=== PATIENT | female | born 1940 | race Caucasian/White ===

== ENCOUNTER 2016-06-20 10:01 | Emergency (ER) | payer MEDICARE, BC ==
[2016-06-20 10:09] VITALS: BP 124/65
[2016-06-20] MEDS ORDERED: DOXYcycline CAP(*) 100 MG PO ONE (10:36)
--- NOTE | 2016-06-20 10:40 | ED ---
Skin Complaint - HPI Summary HPI Summary: 76 F presents with left sided tick on abdomen. Was [place] so believes tick latched on then. did not take a shower so did not notice till today. attempted to remove tick and was unable to get head. Area around tick is red. Patient denied any rash or fever. - History of Current Complaint Chief Complaint: EDRashSkinAbscess Time Seen by Provider: 06/20/16 10:13 Stated Complaint: TICK Hx Last Menstrual Period: 48 yrs Pain Intensity: 2 - Allergy/Home Medications Allergies/Adverse Reactions: Allergies Allergy/AdvReac Type Severity Reaction Status Date / Time Sulfa Drugs Allergy Intermediate See Comment Verified 06/20/16 10:03 Salicylates AdvReac Intermediate See Comment Verified 06/20/16 10:03 mercury Allergy Severe Swelling Uncoded 06/20/16 10:03 Of Face,Lips,& Throat ENVIRONMENTAL/SEASONAL Allergy CONGESTION, Uncoded 06/20/16 10:03 ASTHMA PMH/Surg Hx/FS Hx/Imm Hx Endocrine/Hematology History: Reports: 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, NO PROBLEMS SINCE ADULTHOOD Denies: Hx Diabetes, Hx Systemic Lupus Erythematosus Cardiovascular History: Reports: Other Cardiovascular Problems/Disorders Denies: Hx Congestive Heart Failure, Hx Hypertension, Hx Pacemaker/ICD Respiratory History: Reports: Hx Asthma - INHALER, Hx Pneumonia GI History: Reports: Other GI Disorders - gastrectomy 2005 FOR ADHESIONS History: Reports: Hx Kidney Infection, Hx Kidney Stones, Other Problems/ Disorders - RIGHT HYDRONEPHROSIS Denies: Hx Renal Disease Musculoskeletal History: Reports: Hx Arthritis Denies: Hx Rheumatoid Arthritis Sensory History: Reports: Hx Cataracts - BEGINNING, Hx Contacts or Glasses, Hx Hearing Aid - BILATERAL, DOES NOT ALWAYS WEAR Opthamlomology History: Reports: Hx Cataracts - BEGINNING, Hx Contacts or Glasses Psychiatric History: Denies: Hx Panic Disorder - Cancer History Hx Chemotherapy: No - Surgical History Surgery Procedure, Year, and Place: Stent Rt kidney July 2013 removed, Lt Hip replacement 08/2012, 3 C-sections, Complete Hysterectomy, Adhesions-Colon, Menetrier's Disease-Partial Gastric surgery 1984, right Breast Biopsy-Benign Hx Anesthesia Reactions: Yes - CONSTANT CRYING Infectious Disease History: No Infectious Disease History: Denies: Traveled Outside the [place] in Last 30 Days - Family History Known Family History: Positive: Cardiac Disease - Social History Alcohol Use: None Substance Use Type: Reports: None Smoking Status (MU): Former Smoker Length of Time of Smoking/Using Tobacco: OFF AND ON FOR ABOUT 16 YEAR Have You Smoked in the Last Year: No Review of Systems Negative: Fever Negative: Chest Pain Negative: Shortness Of Breath Positive: Other - tick head present on left side abdominal wall All Other Systems Reviewed And Are Negative: Yes Physical Exam Triage Information Reviewed: Yes Vital Signs On Initial Exam: Initial Vitals Temp Pulse Resp BP Pulse Ox 98.7 F 70 16 124/65 97 06/20/16 10:03 06/20/16 10:03 06/20/16 10:03 06/20/16 10:03 06/20/16 10:03 Vital Signs Reviewed: Yes Appearance: Positive: Well-Appearing Skin: Positive: Other - tick head noted on left side of abdomen with surrounding erythema present Head/Face: Positive: Normal Head/Face Inspection Eyes: Positive: Normal, Conjunctiva Clear Respiratory/Lung Sounds: Positive: Clear to Auscultation, Breath Sounds Present Cardiovascular: Positive: Normal, RRR Abdomen Description: Positive: Nontender, Soft Bowel Sounds: Positive: Present Diagnostics - Vital Signs Vital Signs Temp Pulse Resp BP Pulse Ox 06/20/16 10:03 98.7 F 70 16 124/65 97 - Laboratory Lab Statement: Any lab studies that have been ordered have been reviewed, and results considered in the medical decision making process. Course/Dx - Course Course Of Treatment: 76 F presents with tick to left side abdomen, attempted to remove and was unable to get head, states area stated causing pain today so notice but tick was mostly likely there for about 24 hours after they went hiking yesterday. attempted to removed head but was unable to get it removed, disinfected area, will ppx with doxcycline due to surround erythema around area, patient understands and agrees with plan - Differential Diagnoses - Skin Complaint Differential Diagnoses: Local Allergic Reaction, Tick Born Illness - Diagnoses Provider Diagnoses: Tick bite of abdominal wall Discharge - Discharge Plan Condition: Good Disposition: HOME Patient Education Materials: Tick Bite (ED) Referrals: Demario Duff MD [Primary Care Provider] - Additional Instructions: Follow up with primary within 3 days Use warm compresses on area Can use antihistamine for any itching Can use Tylenol for pain every 6 hours as needed Return to ED if develop fever or any new or worsening symptoms
== END 2016-06-20 11:02 | disposition home or self-care (01) ==
LOC: ED 10:01
DX: S30.861A Insect bite (nonvenomous) of abdominal wall, initial encounter (principal); W57.XXXA Bitten or stung by nonvenomous insect and other nonvenomous arthropods, initial encounter; Y93.9 Activity, unspecified; Y92.9 Unspecified place or not applicable; Z87.891 Personal history of nicotine dependence
CPT/HCPCS: 99282; A9270-GY

== ENCOUNTER 2017-05-14 15:13 | Observation (INO) | payer MEDICARE, BC ==
--- OUTSIDE RECORDS SUMMARY | 2017-05-14 15:33 | XMS REPORT ---
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 Active Onset: 03/03/2011 Bacterial pneumonia Demario Duff M.D. Active Onset: 06/09/2011 Acute upper respiratory infection Demario Duff M.D. Active Onset: 05/10/2012 Arthralgia of the pelvic region and Demario Duff M.D. Active thigh Onset: 05/10/2012 Hyperlipidemia Demario Duff M.D. Active Onset: 05/10/2012 Eruption Demario Duff M.D. Active Onset: 03/02/2014 Pneumonia Demario Duff M.D. Active Onset: 02/25/2016 Chronic obstructive lung disease Demario Duff M.D. Active Onset: 03/05/2015 Pure hypercholesterolemia Demario Duff M.D. Active Onset: 07/17/2014 Disorder of shoulder Demario Duff M.D. Active Onset: 05/15/2014 Transient cerebral ischemia Demario Duff M.D. Active Social History Type Date Description Comments Cigarette Use Nonsmoker Allergies, Adverse Reactions, Alerts Date Description Reaction Status Severity Comments 10/02/2003 Sulfa Drugs active 11/13/2008 Mercury active 06/09/2011 Salicylates pain active Medications Medication Date Status Form Strength Qnty SIG Indications Ordering Provider Clobetasol 07/28/ Active Cream 0.05% 30gm use twice a Demario Fonseca Propionate 2016 day Josie Duff Simvastatin 07/19/ Active Tablets 40mg 90tab 1 by mouth Demario Fonseca 2014 s every day Josie Duff Advair Diskus 10/07/ Active Aerosol 100-50mcg/ 3unit use one Demario Fonseca 2010 Dose s inhalation Elisaimapaulette, two times a M.D. day Montelukast 05/03/ Active Tablets 10mg 90tab take 1 Demario Fonseca Sodium 2007 s tablet Elisaimapaulette, daily M.DBen Theophylline ER 10/01/ Active Tablets 300mg 180ta 1 by mouth Demario Fonseca 2004 ER 12HR bs twice a day Josie Duff Plavix / Active Tablets 75mg 90tab 1 by mouth Daniela 0000 s every day JovannaLIMA bhatia Lotrisone 09/09/ Hx Cream 1-0.05% 30gm use on skin Demario Fonseca 2016 - twice a day Elisaimapaulette, 05/14/ On Feet M.D. 2018 Ciprofloxacin 05/27/ Hx Tablets 500mg 20tab 1 by mouth N39.0 Lauryn HCL 2016 - s twice a day Jason, 06/23/ x 10d [employer] 2017 J44.9 Levaquin 04/08/2016 - Hx Tablets 500mg 10tabs 1 by mouth Demario Fonseca 05/27/2016 every day x 10 Breiman, days M.D. Levaquin 12/20/2015 - Hx Tablets 500mg 10tabs 1 by mouth Demario Fonseca 01/08/2016 every day x 10 Breiman, days M.D. Zostavax 07/17/2014 - Hx Solution [id number] 1dose inject Demario Fonseca 10/23/2014 Rec t/0.65M Sandeep Duff M.D. Nebulizer Set 04/30/2014 - Hx 1units dispense one Daniela [employer] 10/23/2014 machine for LIMA Nugent nebulizer for episodic use x 2 weeks followed by possible intermittent lifelong use dx 493.90 Ipratropium 04/30/2014 - Hx Solution 0.5-2.5 1box use three Daniela [place]/Albuter 07/17/2014 (3)mg/3 times daily LIMA Nugent ol Sulfate ML and 1 additional time as needed Levaquin 04/30/2014 - Hx Tablets 500mg 10tabs 1 by mouth Daniela 05/15/2014 every day LIMA Nugent Tessalon 04/30/2014 - Hx Capsules 200mg 90caps take 1 Prior Daniela 05/15/2014 To Sleep LIMA Nugent Levaquin 03/02/2014 - Hx Tablets 500mg 10tabs 1 by mouth Demario Fonseca 04/30/2014 every day Josie Duff Prednisone 03/02/2014 - Hx Tablets 20mg 18tabs 3 x 3 days 2 x Demario Fonseca 04/30/2014 3 days 1 x 3 Elisaimanjessica M.D. Prednisone 11/07/2013 - Hx Tablets 5mg take 2 po bid Demario Fonseca 11/07/2013 x 3 days, then Breimapaulette, take 1 po tid M.D. x 3 days, then take 1 po bid x 3 days, then 1 po qd x 3 days, then stop Cipro 08/08/2013 - Hx Tablets 250mg 6tabs 1 po bid for 3 Yessi 08/11/2013 days Med Shukla Tessalon 05/16/2013 - Hx Capsules 200mg 90caps take 1 Prior Demario Fonseca 08/07/2013 To Sleep Josie Duff Augmentin 06/14/2011 - Hx Tablets 500-125 20tabs 1 po bid Demario Fonseca 05/10/2012 mg Josie Duff Levaquin 03/03/2011 - Hx Tablets 500mg 10tabs 1 po qd 46 Demario Fonseca 06/09/2011 6. Omega 0 M.DBen Levaquin 10/02/2009 - Hx Tablets 500mg 10tabs 1 po qd 46 Fuentes Reynolds 10/12/2009 6. Josie Egan 0 Zithromax Z-Siva 05/14/2009 - Hx Tablets 250mg 1Pack as directed Demario Fonseca 10/02/2009 Josie Duff Zithromax 02/21/2009 - Hx Tablets 250mg 6Tabs 2 po qd today Mark Napoles 05/14/2009 , then 1 po qd Josie Pinzon times 4 Relenza 07/24/2008 - Hx Aerosol 5mg/Bli use bid x 5 Demario Fonseca Diskhaler 11/13/2008 ster days Josie Duff Naprosyn 06/12/2008 - Hx Tablets 500mg 20tabs 1 bid with Demario Fonseca 10/02/2009 food Josie Duff Z-Siva 08/18/2005 - Hx Tablets 250mg as Dfirected Demario Fonseca 10/08/2005 Josie Duff Climara 06/22/2005 - Hx Patches 0.025mg Family Estradiol 05/15/2013 /[facility] Keflex 06/22/2005 - Hx Tablets 500mg 30tabs 1 po tid Demario Fonseca 10/08/2005 Josie Duff Diflucan 06/22/2005 - Hx Tablets 150mg 1tabs 1 po times 1 Mark Napoles 05/14/2009 day may repeat Josie Pinzon in 7 days Note 05/19/2005 - Hx please add A Demario Fonseca 06/22/2005 lipid profile Omega, to pt's last M.Sesar labs that she had done for her pre-op pt's dx:272.4/ PT was fasting for labs Advair Discus 04/01/2004 - Hx 100/50 3units one inhalation Demario Fonseca 03/03/2011 twice daily Josie Duff Z-Pack 01/14/2004 - Hx 1units as Directed Demario Fonseca 04/01/2004 Josie Duff Albuterol 01/11/2004 - Hx 3units 2 puffs qid Demario Fonseca Inhaler 10/02/2009 prn Josie Duff Theophylline 10/02/2003 - Hx 300gm 270units 1 po tid Demario Fonseca 06/16/2012 Josie Duff Singulair 10/02/2003 - Hx 90units 1 p qd Demario Fonseca 05/03/2006 LUIS Duff M.D. 39 Advair 10/02/2003 - Hx 3units bid Demario Fonseca 04/01/2004 Josie Duff Estraderm Patch 10/02/2003 - Hx Demario Fonseca 06/22/2005 Josie Duff Prednisone - Hx Tablets 5mg 30tabs take 2 po bid Unknown 11/07/2013 x 3 days, then take 1 po tid x 3 days, then take 1 po bid x 3 days, then 1 po qd x 3 days, then stop Simvastatin - Hx Tablets 20mg 90tabs 1 by mouth Demario Fonseca 07/19/2014 every day Josie Duff Medications Administered in Office Medication Date Status Form Strength Qnty SIG Indications Ordering Provider Injection Administered Injection Demario Fonseca Subcutaneous Or 2009 Fadi Duff M.D. Immunizations CPT Code Status Date Vaccine Lot # [id number] Given 02/19/2017 High-Dose, Influenza Virus Vacccine-fluzone 65 [id number] and older 03242 Given 02/25/2016 High-Dose, Influenza Virus Vacccine-fluzone 65 [id number] and older 04717 Given 01/29/2015 Influenza Vac, Quadrivalent, Slit Virus, Im [id number] 85829 Given 01/29/2015 Pneumococcal Conjugate Vacc-13 [id number] 60870 Given 07/20/2014 Zostivax 07297 Given 02/26/2014 High-Dose, Influenza Virus Vacccine-fluzone 65 and older 50424 Given 04/29/2013 DO Not Use Split Influenza Virus Vaccine 99522 Given 04/23/2010 DO Not Use Split Influenza Virus Vaccine [id number] 26328 Given 04/27/2001 Pneumococcal Immunization Vital Signs Date Vital Result Comment 05/14/2017 BP Systolic 136 mmHg BP Diastolic 80 mmHg Heart Rate 112 /min Body Temperature 102.4 F Respiratory Rate 20 /min O2 % BldC Oximetry 90 % Height 68.5 inches 5'8.50" 09/09/2016 BP Systolic 140 mmHg BP Diastolic 80 mmHg Heart Rate 80 /min Body Temperature 98.2 F Respiratory Rate 16 /min Height 68.5 inches 5'8.50" Weight 147.00 lb BMI (Body Mass Index) 22.0 kg/m2 07/28/2016 BP Systolic 126 mmHg BP Diastolic 84 mmHg Heart Rate 60 /min Body Temperature 97.9 F Respiratory Rate 16 /min Height 68.5 inches 5'8.50" Weight 146.38 lb BMI (Body Mass Index) 21.9 kg/m2 05/27/2016 BP Systolic 130 mmHg BP Diastolic 70 mmHg Heart Rate 76 /min Body Temperature 98.1 F Respiratory Rate 16 /min Height 68.5 inches 5'8.50" Weight 150.00 lb BMI (Body Mass Index) 22.5 kg/m2 02/25/2016 BP Systolic 128 mmHg BP Diastolic 80 mmHg Heart Rate 64 /min Body Temperature 97.5 F Respiratory Rate 18 /min O2 % BldC Oximetry 98 % Height 68.5 inches 5'8.50" Weight 151.00 lb BMI (Body Mass Index) 22.6 kg/m2 01/08/2016 BP Systolic 130 mmHg BP Diastolic 80 mmHg Heart Rate 58 /min Body Temperature 97.6 F Respiratory Rate 22 /min O2 % BldC Oximetry 98 % Height 68.5 inches 5'8.50" Weight 150.00 lb BMI (Body Mass Index) 22.5 kg/m2 12/20/2015 BP Systolic 100 mmHg BP Diastolic 70 mmHg Heart Rate 76 /min Body Temperature 98.1 F Respiratory Rate 18 /min O2 % BldC Oximetry 96 % Height 68.5 inches 5'8.50" Weight 151.00 lb BMI (Body Mass Index) 22.6 kg/m2 10/22/2015 BP Systolic 130 mmHg BP Diastolic 78 mmHg Heart Rate 64 /min Body Temperature 97.7 F Respiratory Rate 20 /min O2 % BldC Oximetry 98 % Height 68.5 inches 5'8.50" Weight 153.00 lb BMI (Body Mass Index) 22.9 kg/m2 07/09/2015 BP Systolic 130 mmHg BP Diastolic 80 mmHg Heart Rate 60 /min Body Temperature 97.4 F Respiratory Rate 20 /min O2 % BldC Oximetry 97 % Height 68.5 inches 5'8.50" Weight 154.00 lb BMI (Body Mass Index) 23.1 kg/m2 03/05/2015 BP Systolic 130 mmHg BP Diastolic 80 mmHg Heart Rate 60 /min Body Temperature 97.6 F Respiratory Rate 20 /min O2 % BldC Oximetry 98 % Height 68.5 inches 5'8.50" Weight 154.00 lb BMI (Body Mass Index) 23.1 kg/m2 01/29/2015 BP Systolic 126 mmHg BP Diastolic 70 mmHg Heart Rate 56 /min Body Temperature 97.4 F Respiratory Rate 20 /min O2 % BldC Oximetry 98 % Height 68.5 inches 5'8.50" Weight 149.00 lb BMI (Body Mass Index) 22.3 kg/m2 10/23/2014 BP Systolic 126 mmHg BP Diastolic 80 mmHg Heart Rate 64 /min Body Temperature 97.8 F Respiratory Rate 20 /min O2 % BldC Oximetry 96 % Height 68.5 inches 5'8.50" Weight 149.00 lb BMI (Body Mass Index) 22.3 kg/m2 07/17/2014 BP Systolic 124 mmHg BP Diastolic 84 mmHg Heart Rate 66 /min Body Temperature 97.2 F Respiratory Rate 20 /min O2 % BldC Oximetry 96 % Height 68.5 inches 5'8.50" Weight 151.50 lb BMI (Body Mass Index) 22.7 kg/m2 05/15/2014 BP Systolic 118 mmHg BP Diastolic 70 mmHg Heart Rate 64 /min Body Temperature 96.7 F Respiratory Rate 20 /min O2 % BldC Oximetry 95 % Height 68.5 inches 5'8.50" Weight 152.00 lb BMI (Body Mass Index) 22.8 kg/m2 05/07/2014 BP Systolic 144 mmHg BP Diastolic 92 mmHg Heart Rate 65 /min Body Temperature 98.1 F Respiratory Rate 16 /min O2 % BldC Oximetry 98 % R/A 04/30/2014 BP Systolic 140 mmHg BP Diastolic 92 mmHg Heart Rate 84 /min Body Temperature 99.6 F Respiratory Rate 20 /min O2 % BldC Oximetry 96 % SOB, Labored breathing Height 68.5 inches 5'8.50" Weight 154.38 lb BMI (Body Mass Index) 23.1 kg/m2 03/06/2014 BP Systolic 122 mmHg BP Diastolic 70 mmHg Heart Rate 72 /min Body Temperature 97.9 F Respiratory Rate 20 /min O2 % BldC Oximetry 97 % Height 68.5 inches 5'8.50" Weight 158.00 lb BMI (Body Mass Index) 23.7 kg/m2 03/02/2014 BP Systolic 122 mmHg BP Diastolic 60 mmHg Heart Rate 94 /min Body Temperature 99.0 F Respiratory Rate 22 /min O2 % BldC Oximetry 92 % Height 68.5 inches 5'8.50" Weight 158.00 lb BMI (Body Mass Index) 23.7 kg/m2 11/07/2013 BP Systolic 124 mmHg BP Diastolic 80 mmHg Heart Rate 60 /min Body Temperature 97.4 F Respiratory Rate 18 /min Height 68.5 inches 5'8.50" Weight 151.00 lb BMI (Body Mass Index) 22.6 kg/m2 08/07/2013 BP Systolic 110 mmHg BP Diastolic 70 mmHg Heart Rate 68 /min Body Temperature 98.1 F Respiratory Rate 18 /min Height 68.5 inches 5'8.50" Weight 166.00 lb BMI (Body Mass Index) 24.9 kg/m2 05/16/2013 BP Systolic 118 mmHg BP Diastolic 84 mmHg Heart Rate 66 /min Body Temperature 96.1 F Height 68.5 inches 5'8.50" Weight 162.50 lb BMI (Body Mass Index) 24.3 kg/m2 05/10/2012 BP Systolic 150 mmHg BP Diastolic 70 mmHg Heart Rate 68 /min Body Temperature 97.5 F Height 68.5 inches 5'8.50" Weight 155.00 lb BMI (Body Mass Index) 23.2 kg/m2 06/09/2011 BP Systolic 132 mmHg BP Diastolic 80 mmHg Heart Rate 68 /min Body Temperature 96.3 F O2 % BldC Oximetry 94 % Height 68.5 inches 5'8.50" Weight 152.00 lb BMI (Body Mass Index) 22.8 kg/m2 03/10/2011 BP Systolic 106 mmHg BP Diastolic 70 mmHg Heart Rate 84 /min Body Temperature 98.4 F O2 % BldC Oximetry 95 % Height 68.5 inches 5'8.50" Weight 150.00 lb BMI (Body Mass Index) 22.5 kg/m2 03/03/2011 BP Systolic 120 mmHg BP Diastolic 70 mmHg Heart Rate 108 /min Body Temperature 103.2 F O2 % BldC Oximetry 93 % Height 68.5 inches 5'8.50" Weight 152.00 lb BMI (Body Mass Index) 22.8 kg/m2 09/01/2010 BP Systolic 136 mmHg BP Diastolic 78 mmHg Heart Rate 60 /min Body Temperature 97.5 F Height 68.5 inches 5'8.50" Weight 161.00 lb BMI (Body Mass Index) 24.1 kg/m2 04/09/2010 BP Systolic 120 mmHg BP Diastolic 80 mmHg Heart Rate 86 /min Body Temperature 99.3 F O2 % BldC Oximetry 94 % Height 68.5 inches 5'8.50" Weight 158.00 lb BMI (Body Mass Index) 23.7 kg/m2 10/02/2009 BP Systolic 120 mmHg BP Diastolic 80 mmHg Heart Rate 76 /min Body Temperature 99.5 F Respiratory Rate 16 /min O2 % BldC Oximetry 96 % Height 68.5 inches 5'8.50" Weight 154.00 lb BMI (Body Mass Index) 23.1 kg/m2 05/14/2009 BP Systolic 118 mmHg BP Diastolic 72 mmHg Heart Rate 72 /min Body Temperature 97.3 F Height 68.5 inches 5'8.50" Weight 156.00 lb BMI (Body Mass Index) 23.4 kg/m2 02/21/2009 BP Systolic 110 mmHg BP Diastolic 82 mmHg Heart Rate 88 /min Body Temperature 99.3 F Height 68.5 inches 5'8.50" Weight 151.00 lb BMI (Body Mass Index) 22.6 kg/m2 11/13/2008 BP Systolic 112 mmHg BP Diastolic 60 mmHg Heart Rate 72 /min Height 68.5 inches 5'8.50" Weight 150.00 lb BMI (Body Mass Index) 22.5 kg/m2 07/24/2008 BP Systolic 122 mmHg BP Diastolic 80 mmHg Heart Rate 60 /min Height 68.5 inches 5'8.50" Weight 154.00 lb BMI (Body Mass Index) 23.1 kg/m2 07/03/2008 BP Systolic 126 mmHg BP Diastolic 66 mmHg Heart Rate 64 /min Height 68.5 inches 5'8.50" Weight 150.00 lb BMI (Body Mass Index) 22.5 kg/m2 06/12/2008 BP Systolic 112 mmHg BP Diastolic 70 mmHg Heart Rate 56 /min Body Temperature 97.3 F Height 68.5 inches 5'8.50" Weight 150.00 lb BMI (Body Mass Index) 22.5 kg/m2 02/21/2008 BP Systolic 120 mmHg BP Diastolic 80 mmHg Heart Rate 72 /min Body Temperature 98.7 F Height 68.5 inches 5'8.50" Weight 153.00 lb BMI (Body Mass Index) 22.9 kg/m2 05/09/2007 BP Systolic 114 mmHg BP Diastolic 70 mmHg Heart Rate 64 /min Height 68.5 inches 5'8.50" Weight 156.00 lb BMI (Body Mass Index) 23.4 kg/m2 08/18/2005 BP Systolic 140 mmHg BP Diastolic 90 mmHg Body Temperature 99.8 F Height 68.5 inches 5'8.50" Weight 160.00 lb BMI (Body Mass Index) 24.0 kg/m2 06/22/2005 BP Systolic 120 mmHg BP Diastolic 80 mmHg Heart Rate 76 /min Body Temperature 99.1 F Height 68.5 inches 5'8.50" 05/19/2005 BP Systolic 112 mmHg BP Diastolic 80 mmHg Heart Rate 68 /min Height 68.5 inches 5'8.50" Weight 150.00 lb BMI (Body Mass Index) 22.5 kg/m2 03/17/2005 BP Systolic 108 mmHg BP Diastolic 60 mmHg Heart Rate 58 /min Height 68.5 inches 5'8.50" Weight 148.00 lb BMI (Body Mass Index) 22.2 kg/m2 01/14/2004 BP Systolic 108 mmHg BP Diastolic 74 mmHg Heart Rate 80 /min Body Temperature 97.5 F Weight 153.00 lb 01/11/2004 BP Systolic 110 mmHg BP Diastolic 78 mmHg Heart Rate 60 /min Weight 155.00 lb 10/02/2003 BP Systolic 110 mmHg BP Diastolic 70 mmHg Heart Rate 72 /min Weight 152.00 lb Results Test Date Test Result H/L Range Note Laboratory test finding 07/28/2016 Theophylline, Serum 5.1 ug/mL Low 10.0- 20.0 1, 2 Lipid Profile 07/28/2016 Cholesterol 224 mg/dL High 120-200 Triglycerides 106 mg/dL 30-200 HDL Cholesterol 75 mg/dL 30-85 LDL (Calculated) 128 CALC 0-129 VLDL Cholesterol 21 mg/dL 0-50 HDL Risk Factor 3.0 CALC 0.0-4.4 Comprehensive Metabolic Prof 07/28/2016 Sodium 137 mEq/L 134-149 Potassium 4.3 mEq/L 3.6-5.5 Chloride 101 mEq/L 94-112 Carbon Dioxide 26 mEq/L 21-32 Glucose 96 mg/dL 70-105 BUN 17 mg/dL 6-26 Creatinine 0.9 mg/dL 0.6-1.4 BUN/Creat Ratio 18.9 CALC 8.0-36.0 Calcium 9.9 mg/dL 8.6-10.2 Total Protein 7.1 g/dL 6.4-8.3 Albumin 4.5 g/dL 3.8-5.5 Globulin 2.6 g/dL 2.0-4.8 A/G Ratio 1.7 CALC 0.6-2.3 Alk. Phosphatase 71 U/L 30-110 Alt (SGPT) 15 U/L 7-35 Ast (Sgot) 19 U/L 5-34 Total Bilirubin 0.5 mg/dL 0.2-1.3 GFR Non- >60 ml/min/1.73m^ >=60 GFR >60 ml/min/1.73m^ >=60 Ua - Micro (Fma) 05/27/2016 Appearance CLEAR Color YELLOW Glucose, Urine (Fma/CMC/CTX) NEG Bilirubin NEG Ketones NEG SP Grav <=1.005 Blood NEG PH 7.0 Protein NEG Urobil 0.2 Nitrite NEG Leukocytes (Fma/CMC/Centrex) TRACE Hyaline - /Lpf Granular - /Lpf WBC (Fma,Centrex) 5-10 RBC 2-5 Mucus - /Lpf Epith FEW /Lpf Bacteria TRACE /Hpf Amorphous - /Lpf Crystals, Fluid (Fma/CMC/CTX) - Z#Comments - Comprehensive Metabolic Prof 07/09/2015 Sodium 140 mEq/L 134-149 Potassium 4.5 mEq/L 3.6-5.5 Chloride 106 mEq/L 94-112 Carbon Dioxide 28 mEq/L 21-32 Glucose 89 mg/dL 70-105 BUN 21 mg/dL 6-26 Creatinine 1.0 mg/dL 0.6-1.4 BUN/Creat Ratio 21.0 CALC 8.0-36.0 Calcium 9.8 mg/dL 8.6-10.2 Total Protein 7.0 g/dL 6.4-8.3 Albumin 4.5 g/dL 3.8-5.5 Globulin 2.5 g/dL 2.0-4.8 A/G Ratio 1.8 CALC 0.6-2.3 Alk. Phosphatase 69 U/L 30-110 Alt (SGPT) 24 U/L 7-35 Ast (Sgot) 28 U/L 5-34 Total Bilirubin 0.7 mg/dL 0.2-1.3 GFR Non- 57 ml/min/1.73m^ Low >=60 GFR >60 ml/min/1.73m^ >=60 Lipid Profile 07/09/2015 Cholesterol 229 mg/dL High 120-200 Triglycerides 76 mg/dL 30-200 HDL Cholesterol 90 mg/dL High 30-85 LDL (Calculated) 124 CALC 0-129 VLDL Cholesterol 15 mg/dL 0-50 HDL Risk Factor 2.5 CALC 0.0-4.4 Lipid Profile 10/23/2014 Cholesterol 201 mg/dL High 120-200 Triglycerides 64 mg/dL 30-200 HDL Cholesterol 82 mg/dL 30-85 LDL (Calculated) 106 CALC 0-129 VLDL Cholesterol 13 mg/dL 0-50 HDL Risk Factor 2.5 CALC 0.0-4.4 Laboratory test finding 10/23/2014 CK 59 U/L 26-140 Lipid Profile 07/17/2014 Cholesterol 275 mg/dL High 120-200 Triglycerides 85 mg/dL 30-200 HDL Cholesterol 87 mg/dL High 30-85 LDL (Calculated) 171 CALC High 0-129 VLDL Cholesterol 17 mg/dL 0-50 HDL Risk Factor 3.2 CALC 0.0-4.4 Comprehensive Metabolic Prof 07/17/2014 Sodium 140 mEq/L 134-149 Potassium 4.1 mEq/L 3.6-5.5 Chloride 103 mEq/L 94-112 Carbon Dioxide 26 mEq/L 21-32 Glucose 87 mg/dL 70-105 BUN 21 mg/dL 6-26 Creatinine 1.1 mg/dL 0.6-1.4 BUN/Creat Ratio 19.1 CALC 8.0-36.0 Calcium 9.9 mg/dL 8.6-10.2 Total Protein 6.7 g/dL 6.4-8.3 Albumin 4.3 g/dL 3.8-5.5 Globulin 2.4 g/dL 2.0-4.8 A/G Ratio 1.8 CALC 0.6-2.3 Alk. Phosphatase 67 U/L 30-110 Alt (SGPT) 18 U/L 7-35 Ast (Sgot) 22 U/L 5-34 Total Bilirubin 0.5 mg/dL 0.2-1.3 Laboratory test finding 05/08/2014 Troponin I 0.01 ng/mL <0.03 3 Comp Metabolic Panel 05/08/2014 Sodium 134 mmol/L 133-145 Potassium TNP mmol/L 3.5-5.0 4 Chloride 104 mmol/L 101-111 Co2 Carbon Dioxide 23 mmol/L 22-32 Anion Gap TNP mmol/L 2-11 Glucose 85 mg/dL 70-100 Blood Urea Nitrogen 23 mg/dL 6-24 Creatinine 1.08 mg/dL High 0.51-0.95 BUN/Creatinine Ratio 21.3 High 8-20 Calcium 9.3 mg/dL 8.6-10.3 Total Protein 6.2 g/dL Low 6.4-8.9 Albumin 3.6 g/dL 3.2-5.2 Globulin 2.6 g/dL 2-4 Albumin/Globulin Ratio 1.4 1-3 Total Bilirubin 0.30 mg/dL 0.2-1.0 Alkaline Phosphatase 67 U/L 34-104 Alt 10 U/L 7-52 Ast TNP U/L 13-39 5 Egfr Non- 49.6 >60 Egfr 63.8 >60 6 Type & Screen 05/08/2014 Patient Blood Type O Positive Antibody Screen NEGATIVE Laboratory test finding 05/08/2014 Potassium Redraw 3.7 mmol/L 3.5-5.0 Ast Redraw 11 U/L Low 13-39 Urinalysis Profile 05/08/2014 Urine Color Straw Urine Appearance Clear Urine Specific [place] 1.006 Low 1.010-1.030 Urine pH 5.0 5-9 Urine Urobilinogen Negative Negative Urine Ketones Negative Negative Urine Protein Negative Negative Urine Leukocytes Negative Negative Urine Blood Negative Negative * * Negative 7 Urine Nitrite Negative Negative Urine Bilirubin Negative Negative Urine Glucose Negative Negative Laboratory test finding 05/08/2014 Activated Partial 35.4 seconds 24.0- 36.1 Thrombo Time CBC Auto Diff 05/08/2014 White Blood Count 5.3 10^3/uL 4.8-10.8 Red Blood Count 4.03 10^6/uL 4.0-5.4 Hemoglobin 12.2 g/dL 12.0-16.0 Hematocrit 36 % 35-47 Mean Corpuscular Volume 90 fL 80-97 Mean Corpuscular Hemoglobin 30 pg 27-31 Mean Corpuscular HGB Conc 34 g/dL 31-36 Red Cell Distribution Width 14 % 10.5-15 Platelet Count 434 10^3/uL 150-450 Mean Platelet Volume 8 um3 7.4-10.4 Abs Neutrophils 2.8 10^3/uL 1.5-7.7 Abs Lymphocytes 1.6 10^3/uL 1.0-4.8 Abs Monocytes 0.6 10^3/uL 0-0.8 Abs Eosinophils 0.3 10^3/uL 0-0.6 Abs Basophils 0.1 10^3/uL 0-0.2 Abs Nucleated RBC 0 10^3/uL Granulocyte % 53.0 % 38-83 Lymphocyte % 29.9 % 25-47 Monocyte % 10.9 % High 1-9 Eosinophil % 4.9 % 0-6 Basophil % 1.3 % 0-2 Nucleated Red Blood Cells % 0.1 Inr/Protime 05/08/2014 Inr 1.08 High 0.85-1.06 Influenza A&B-fma 04/30/2014 Influenza A NEGATIVE Influenza B NEGATIVE Basic Metabolic Panel 01/02/2014 Sodium 136 mmol/L 133-145 Potassium 4.6 mmol/L 3.7-5.6 Chloride 104 mmol/L 101-111 Co2 Carbon Dioxide 27 mmol/L 22-32 Anion Gap 5 mmol/L 2-11 Glucose 79 mg/dL 70-100 Blood Urea Nitrogen 17 mg/dL 6-24 Creatinine 1.02 mg/dL High 0.51-0.95 BUN/Creatinine Ratio 16.7 8-20 Calcium 9.7 mg/dL 8.6-10.3 Egfr Non- 53.0 >60 Egfr 68.1 >60 8 CBC Auto Diff 08/30/2013 White Blood Count 5.6 10^3/uL 4.8-10.8 Red Blood Count 3.86 10^6/uL Low 4.0-5.4 Hemoglobin 11.7 g/dL Low 12.0-16.0 Hematocrit 34 % Low 35-47 Mean Corpuscular Volume 88 fL 80-97 Mean Corpuscular Hemoglobin 30 pg 27-31 Mean Corpuscular HGB Conc 34 g/dL 31-36 Red Cell Distribution Width 14 % 10.5-15 Platelet Count 253 10^3/uL 150-450 Mean Platelet Volume 8 um3 7.4-10.4 Abs Neutrophils 3.7 10^3/uL 1.5-7.7 Abs Lymphocytes 1.1 10^3/uL 1.0-4.8 Abs Monocytes 0.5 10^3/uL 0-0.8 Abs Eosinophils 0.2 10^3/uL 0-0.6 Abs Basophils 0.1 10^3/uL 0-0.2 Abs Nucleated RBC 0 10^3/uL Granulocyte % 66.9 % 38-83 Lymphocyte % 20.1 % Low 25-47 Monocyte % 8.3 % 1-9 Eosinophil % 3.4 % 0-6 Basophil % 1.3 % 0-2 Nucleated Red Blood Cells % 0 Inr/Protime 08/30/2013 Inr 0.93 0.85-1.06 Laboratory test finding 08/30/2013 Activated Partial 28.9 seconds 24.0- 36.1 Thrombo Time Basic Metabolic Panel 08/30/2013 Sodium 137 mmol/L 133-145 Potassium 3.9 mmol/L 3.7-5.6 Chloride 106 mmol/L 101-111 Co2 Carbon Dioxide 25 mmol/L 22-32 Anion Gap 6 mmol/L 2-11 Glucose 96 mg/dL 70-100 Blood Urea Nitrogen 23 mg/dL 6-24 Creatinine 1.08 mg/dL High 0.51-0.95 BUN/Creatinine Ratio 21.3 High 8-20 Calcium 9.4 mg/dL 8.6-10.3 Egfr Non- 49.6 >60 Egfr 63.8 >60 9 CBC Auto Diff 08/07/2013 White Blood Count 18.7 10^3/uL High 4.8-10.8 Red Blood Count 3.90 10^6/uL Low 4.0-5.4 Hemoglobin 11.8 g/dL Low 12.0-16.0 Hematocrit 35 % 35-47 Mean Corpuscular Volume 89 fL 80-97 Mean Corpuscular Hemoglobin 30 pg 27-31 Mean Corpuscular HGB Conc 34 g/dL 31-36 Red Cell Distribution Width 13 % 10.5-15 Platelet Count 305 10^3/uL 150-450 Mean Platelet Volume 8 um3 7.4-10.4 Abs Neutrophils 17.3 10^3/uL High 1.5-7.7 Abs Lymphocytes 0.4 10^3/uL Low 1.0-4.8 Abs Monocytes 0.9 10^3/uL High 0-0.8 Abs Eosinophils 0 10^3/uL 0-0.6 Abs Basophils 0 10^3/uL 0-0.2 Abs Nucleated RBC 0.01 10^3/uL Granulocyte % 92.6 % High 38-83 Lymphocyte % 2.4 % Low 25-47 Monocyte % 4.8 % 1-9 Eosinophil % 0 % 0-6 Basophil % 0.2 % 0-2 Nucleated Red Blood Cells % 0 Laboratory test finding 08/07/2013 Urine Culture (a/[facility]) positive Laboratory test finding 08/07/2013 Erythrocyte Sed Rate 89 mm/Hr High 0- 40 Ua - Micro ([facility]) 08/07/2013 Appearance clear Color yellow Glucose neg Bilirubin neg Ketones neg SP Grav 1.015 Blood NEG PH 5.5 Protein NEG Urobil 0.2 Nitrite NEG Leukocytes ([facility]) NEG Hyaline - /Lpf Granular - /Lpf WBC ([facility]) 5-10 RBC 0-1 Mucus - /Lpf Epith RARE /Lpf Bacteria 4+ /Hpf Amorphous - /Lpf Crystals, Fluid (a/[facility]) - Z#Comments - Comp Metabolic Panel 08/07/2013 Sodium 126 mmol/L Low 133-145 Potassium 4.6 mmol/L 3.7-5.6 Chloride 93 mmol/L Low 101-111 Co2 Carbon Dioxide 24 mmol/L 22-32 Anion Gap 9 mmol/L 2-11 Glucose 120 mg/dL High 70-100 Blood Urea Nitrogen 20 mg/dL 6-24 Creatinine 1.31 mg/dL High 0.51-0.95 BUN/Creatinine Ratio 15.3 8-20 Calcium 8.9 mg/dL 8.6-10.3 Total Protein 6.0 g/dL Low 6.4-8.9 Albumin 3.5 g/dL 3.2-5.2 Globulin 2.5 g/dL 2-4 Albumin/Globulin Ratio 1.4 1-3 Total Bilirubin 0.40 mg/dL 0.2-1.0 Alkaline Phosphatase 133 U/L High 34-104 Alt 90 U/L High 7-52 Ast 109 U/L High 13-39 Egfr Non- 39.7 >60 Egfr 51.0 >60 10 CBC Electronic ([facility]) 05/16/2013 WBC 5.0 3.6-9.6 RBC 4.19 3.90-5.70 Hemoglobin (Fma/CMC/CTX) 12.9 g/dL 12.1 - 17.2 Hematocrit (Fma/CMC/CTX) 38.4 % 36.1 - 50.3 Platelets 243 10^3/ul 150-400 Lymph% 35.2 % 17.0-48.0 Mixed% 6.9 Neutrophils % 57.9 Mean Corpuscular Vol 92 82.2-97.4 Mean Corpuscular Hemoglobin 30.9 27.6-33.3 Mean Corpuscular Hemo Concen 33.7 32.0-36.0 RDW 11.9 11.6-13.7 Mean Platelet Volume 7.1 6.5-11.0 Laboratory test finding 05/16/2013 Theophylline 6.0 ug/ml Low 10.0-20.0 11 Basic Metabolic Profile 05/16/2013 BUN 22 mg/dL 6-26 Calcium 9.6 mg/dL 8.6-10.2 Chloride 96 mEq/L 94-112 Creatinine 1.0 mg/dL 0.6-1.4 Carbon Dioxide 26 mEq/L 21-32 Glucose 89 mg/dL 70-105 Sodium 137 mEq/L 134-149 Potassium 4.4 mEq/L 3.6-5.5 BUN/Creat Ratio 20.5 Calc 8.0-36.0 Surgical Pathology 06/29/2012 S RUN DATE: 07/01/ <SEE 12 NOTE> Lipid Profile 05/10/2012 Cholesterol 327 mg/dL High 120-200 13 HDL 91 mg/dL High 30-85 14 Triglycerides 82 mg/dL 30-200 HDL Risk Factor 3.6 CALC 0.0-4.4 LDL (Calculated) 220 CALC High 0-129 VLDL (Calculated) 16 mg/dL 0-50 Comprehensive Metabolic Prof 05/10/2012 Albumin 4.8 g/dL 3.8-5.5 Alk. Phos. 69 U/L 30-110 Alt (SGPT) 19 U/L 7-35 Ast (Sgot) 22 U/L 5-34 BUN 17 mg/dL 6-26 Calcium 9.9 mg/dL 8.6-10.2 Chloride 101 mEq/L 94-112 Creatinine 1.1 mg/dL 0.6-1.4 Carbon Dioxide 26 mEq/L 21-32 Glucose 81 mg/dL 70-105 Sodium 137 mEq/L 134-149 Total Bilirubin 0.5 mg/dL 0.2-1.3 Total Protein 7.1 g/dL 6.3-8.1 Potassium 4.2 mEq/L 3.6-5.5 Globulin 2.3 g/dL 2.0-4.8 A/G Ratio 2.0 Calc 0.6-2.3 BUN/Creat Ratio 16.3 Calc 8.0-36.0 Laboratory test finding 06/09/2011 BUN 16 mg/dL 6- Creatinine 1.0 mg/dL 0.6-1.4 Laboratory test finding 03/10/2011 BUN 18 mg/dL 6- Creatinine 1.0 mg/dL 0.6-1.4 Cytology Non-Computing Services Director 05/19/2010 Cytology Non Computing Services Director <SEE 15 NOTE> Cytology Non-Computing Services Director 05/19/2010 Cytology Non Computing Services Director <SEE 16 NOTE> Laboratory test 04/23/2010 Theophylline 8.7 ug/ml Low 10.0-20. 17 finding 0 Influenza A&B 04/09/2010 Influenza A NEGATIVE Influenza B NEGATIVE Laboratory test finding 10/07/2009 BUN 17 mg/dL 6-26 Lipid Profile 10/07/2009 Cholesterol 275 mg/dL High 120-200 HDL 62 mg/dL 30-85 Triglycerides 83 mg/dL 30-200 HDL Risk Factor 4.4 CALC 4.2-7.0 LDL (Calculated) 196 CALC High 0-129 VLDL (Calculated) 17 mg/dL 0-50 Laboratory test finding 10/07/2009 Creatinine 1.0 mg/dL 0.6-1.4 Comprehensive Metabolic Prof 11/20/2008 Albumin 4.2 g/dL 3.8-5.5 18 Alk. Phos. 69 U/L 30-110 18 Alt (SGPT) 30 U/L 7-35 18 Ast (Sgot) 20 U/L 5-34 18 BUN 22 mg/dL 6-26 18 Calcium 9.6 mg/dL 8.6-10.2 18 Chloride 95 mEq/L 94-112 18 Creatinine 1.0 mg/dL 0.6-1.4 18 Carbon Dioxide 22 mEq/L 21-32 18 Glucose 84 mg/dL 70-105 18 Sodium 139 mEq/L 134-149 18 Total Bilirubin 0.5 mg/dL 0.2-1.3 18 Total Protein 6.4 g/dL 6.3-8.1 18 Potassium 4.8 mEq/L 3.6-5.5 18 Globulin 2.3 g/dL 2.0-4.8 18 A/G Ratio 1.8 Calc 0.6-2.2 18 BUN/Creat Ratio 20.8 Calc 8.0-36.0 18 Lipid Profile 11/20/2008 Cholesterol 245 mg/dL High 120-200 18, 19 HDL 60 mg/dL 30-85 18 Triglycerides 59 mg/dL 30-200 18, 20 HDL Risk Factor 4.1 CALC Low 4.2-7.0 18 LDL (Calculated) 173 CALC High 0-129 18 VLDL (Calculated) 12 mg/dL 0-50 18 Complete Blood Count 11/20/2008 WBC 6.1 x10^3/uL 3.6-9.6 18 Gran# 4.0 x10^3/uL 1.5-7.2 18 Gran% 65.5 % 42.2-75.2 18 HCT 41 % 36-50 18 HGB 13.7 g/dL 12.1-17.2 18 Lymph# 1.7 x10^3/uL 0.7-4.9 18 Lymph% 27.3 % 20.5-51.1 18 MCH 30.3 pg 27.6-33.3 18 MCV 90.2 fL 82.2-97.4 18 MCHC 33.6 g/dL 33.0-35.5 18 Mo# 0.4 x10^3/uL 0.1-0.9 18 Mo% 7.2 % 1.7-9.3 18 MPV 8.7 fL 7.4-10.4 18 PLT 305 x10^3/uL 150-400 18 RBC 4.52 x10^6/uL 3.90-5.70 18 RDW 13.0 % 11.6-13.7 18 Laboratory test finding 11/20/2008 Theophylline 7.3 ug/ml Low 10.0-20.0 21 Laboratory test finding 02/21/2008 TSH 1.96 mIU/L 0.50-6.00 Free T4 1.39 ng/dL 0.75-1.54 Laboratory test finding 02/21/2008 Sed Rate (Fma/CMC/Centrex) 23 MM Complete Blood Count 02/21/2008 WBC 8.2 x10^3/u 3.6-9.6 Gran# 5.6 x10^3/u 1.5-7.2 Gran% 67.7 % 42.2-75.2 HCT 39 % 36-50 HGB 13.2 g/dL 12.1-17.2 Lymph# 2.3 x10^3/u 0.7-4.9 Lymph% 28.4 % 20.5-51.1 MCH 30.2 pg 27.6-33.3 MCV 89.0 fL 82.2-97.4 MCHC 33.9 g/dL 33.0-35.5 Mo# 0.3 x10^3/u 0.1-0.9 Mo% 3.9 % 1.7-9.3 MPV 7.2 fL Low 7.4-10.4 PLT 376 x10^3/u 150-400 RBC 4.38 x10^6/u 3.90-5.70 RDW 12.8 % 11.6-13.7 Laboratory test 05/18/2005 Misc BMP;LIPID;CBC See Image Report finding Comp Metabolic (a) 03/17/2005 Glucose, Serum 90 mg/dL 70-105 Female (Fma/CMC/CTX) BUN (Fma/CMC/Centrex) 17 mg/dL 6-26 Creatinine, Serum 0.9 mg/dL 0.6-1.4 BUN/Creatinin Ratio 19.8 8.0-36 Sodium 134 134-149 Potassium 4.1 3.6-5.5 Chloride 96 mEq/L 94-112 Co2 29 21-32 Calcium (Fma/CMC/Centrex) 10.0 mg/dL 8.6-10.2 Total Protein 7.3 g/dL 6.3-8.1 Albumin (Fma/CMCC/Centrex) 4.3 3.8-5.5 Globulin 2.9 2.0-4.8 A/G Ratio (A/G Ratio) 1.5 0.6-2.2 Alkaline Phosphatase (F/C/CTX) 75 U/L 30-110 Alt (Sgot) Female (Fma,CX,CMC) 30 7-35 Ast Sgot 24 U/L 5-34 Bilirubin, Total 0.6 mg/dL 0.2-1.3 Lipid Profile (a) Female 03/17/2005 Cholesterol 308 mg/dL High 120-200 Triglyceride 72 mg/dL 30-200 HDL-Chol 87 mg/dL High 30-85 22 LDL, Calculated ([facility]) 206 CALC High 0-129 LDL Direct (/[facility]) - mg/dL 0-130 VLDL 14 0-50 HDL Risk Factor ([facility]) 3.5 CALC Low 4.2-7.0 CBC Electronic ([facility]) 03/17/2005 WBC 3.9 3.6-9.6 Lymphocytes 39.4 % 20.5 - 51.1 Monocytes 6.9 % 1.7-9.3 Granulocytes 53.7 % 42.2 - 75.2 Lymphocytes 1.5 10^3/uL 0.7 - 4.9 Monocytes 0.3 10^3/uL 0.1 - 0.9 Granulocytes 2.1 10^3/uL 1.5 - 7.2 RBC 4.73 3.90-5.70 Hemoglobin ([facility]/CTX) 14.7 g/dL 12.1 - 17.2 Hematocrit ([facility]/CTX) 42.7 % 36.1 - 50.3 Mean Corpuscular Vol 90.1 82.2-97.4 Mean Corpuscular Hemaglobin 31.1 27.6-33.3 Mean Corpuscular Hemo Concen 34.6 33.0-36.0 RDW 12.6 11.6-13.7 Platelets 226. 10^3/ul 150-400 Mean Platelet Volume 8.9 7.4-10.4 Ua - Non Micro ([facility]) 03/17/2005 Appearance CLEAR Color LT YELLOW Glucose NEG Bilirubin NEG Ketones NEG SP Grav 1.010 Blood NEG PH 7.0 Protein NEG Urobil 0.2 Nitrite NEG Leukocytes NEG Laboratory test finding 03/17/2005 Theophylline 9.8 ug/ml Low 10.0-20.0 23 Ua - Micro ([facility]) 01/14/2004 Appearance HAZY Color LT YELLOW Glucose NEG Bilirubin NEG Ketones NEG SP Grav 1.015 Blood NEG PH 5.0 Protein NEG Urobil 0.2 Nitrite NEG Leukocytes NEG Hyaline - /Lpf Granular - /Lpf WBC'S 3-5 RBC'S 0-1 Mucus - /Lpf Epith MANY Bacteria 3+ Amorphous - /Lpf Crystals - /Lpf Comments - Laboratory test finding 01/11/2004 Theophylline 5.8 ug/ml Low 10.0 - 20.0 Basic Metabolic Panel 01/11/2004 Glucose 93 mg/dL 61.0 - 110.0 BUN 16 mg/dL 4.0 - 18.0 Creatinine, Serum 1.0 mg/dL 0.5 - 1.2 Sodium 140 mmol/L 136.0 - 146.0 Potassium 4.6 mmol/L 3.5 - 5.3 Chloride 105 mmol/L 98.0 - 107.0 Carbon Dioxide 26 mmol/L 20.0 - 32.0 Calcium 9.3 mg/dL 8.4 - 10.6 Lipid Profile 01/11/2004 Triglycerides 66 mg/dL 24 Cholesterol, Total 249 mg/dL High 120.0 - 200.0 25 HDL Cholesterol 88 mg/dL High 40.0 - 60.0 LDL Cholesterol, Calc. 148 mg/dL <130 26 LDL/HDL Cholesterol 1.7 27 Chol/HDL Cholesterol 2.8 28 Laboratory test finding 01/11/2004 GFR (Calculated) 59 29 1 1 red top poured off serum 2 Detection Limit=0.9 <0.9 indicates None Detected 3 Reference Range and Interpretation: TnI (ng/mL) Interpretation Less Than 0.03 ng/mL Not supportive of diagnosis of MS 0.03 - 0.50 ng/mL Indeterminate: suggest serial studies if clinically indicated. Greater than 0.5 ng/mL Consistent with diagnosis of MS 4 Unable to report test result due to hemolysis. 5 Unable to report test result due to hemolysis. 6 Because ethnic data is not always readily available, this report includes an eGFR for both -Americans and non- Americans. The National Kidney Disease Education Program (NKDEP) does not endorse the use of the MDRD equation for patients that are not between the ages of 18 and 70, are , have extremes of body size, muscle mass, or nutritional status, or are non- or non-. According to the National Kidney Foundation, irrespective of diagnosis, the stage of the disease is based on the level of kidney function: Stage Description GFR(mL/min/1.73 m(2)) 1 Kidney damage with normal or decreased GFR 90 2 Kidney damage with mild decrease in GFR 60-89 3 Moderate decrease in GFR 30-59 4 Severe decrease in GFR 15-29 5 Kidney failure <15 (or dialysis) 7 *Ascorbic acid is present which may interfere with detection of blood. 8 Because ethnic data is not always readily available, this report includes an eGFR for both -Americans and non- Americans. The National Kidney Disease Education Program (NKDEP) does not endorse the use of the MDRD equation for patients that are not between the ages of 18 and 70, are , have extremes of body size, muscle mass, or nutritional status, or are non- or non-. According to the National Kidney Foundation, irrespective of diagnosis, the stage of the disease is based on the level of kidney function: Stage Description GFR(mL/min/1.73 m(2)) 1 Kidney damage with normal or decreased GFR 90 2 Kidney damage with mild decrease in GFR 60-89 3 Moderate decrease in GFR 30-59 4 Severe decrease in GFR 15-29 5 Kidney failure <15 (or dialysis) 9 Because ethnic data is not always readily available, this report includes an eGFR for both -Americans and non- Americans. The National Kidney Disease Education Program (NKDEP) does not endorse the use of the MDRD equation for patients that are not between the ages of 18 and 70, are , have extremes of body size, muscle mass, or nutritional status, or are non- or non-. According to the National Kidney Foundation, irrespective of diagnosis, the stage of the disease is based on the level of kidney function: Stage Description GFR(mL/min/1.73 m(2)) 1 Kidney damage with normal or decreased GFR 90 2 Kidney damage with mild decrease in GFR 60-89 3 Moderate decrease in GFR 30-59 4 Severe decrease in GFR 15-29 5 Kidney failure <15 (or dialysis) 10 Because ethnic data is not always readily available, this report includes an eGFR for both -Americans and non- Americans. The National Kidney Disease Education Program (NKDEP) does not endorse the use of the MDRD equation for patients that are not between the ages of 18 and 70, are , have extremes of body size, muscle mass, or nutritional status, or are non- or non-. According to the National Kidney Foundation, irrespective of diagnosis, the stage of the disease is based on the level of kidney function: Stage Description GFR(mL/min/1.73 m(2)) 1 Kidney damage with normal or decreased GFR 90 2 Kidney damage with mild decrease in GFR 60-89 3 Moderate decrease in GFR 30-59 4 Severe decrease in GFR 15-29 5 Kidney failure <15 (or dialysis) 11 serum 12 RUN DATE: 07/01/12 [facility] LAB LIVE PAGE 1 RUN TIME: [address] [place] [address] Specimen Inquiry Name: VILMA VANEGAS J : [address]: Josh Early MD Acct: [id number] Unit: [id number] AGE: 72 Location: [facility] Re06/29/12 SEX: F Status: REG REF SPEC: [id number] CRISTIAN: 06/29/12- SUBM DR: Josh Early MD REQ: [id number] RECD: 06/29/12 STATUS: JENN MASON DR: Demario Duff MD _ ORDERED: LEVEL IV FINAL DIAGNOSIS Colon, sigmoid, biopsies: A. Tubular adenoma. B. No high grade dysplasia or malignancy. CLINICAL HISTORY History of polyps. 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 Abdomen floppy, rectal negative. To cecum, difficult - rolled supine. Sludge. Polyp at 22.0 cm. GROSS DESCRIPTION The specimen is received in formalin labeled OdessaRaymundo Vanegas, Sigmoid Colon Polyp at 22.0 cm. and consists of a flores, soft tissue fragment measuring 0.3 x 0.2 x 0.2 cm. Submitted entirely, one cassette. Signed (signature on file) Magdaleno De La Rosa MD 1640 END OF REPORT * ML=Testing performed at Main Lab DEPARTMENT OF PATHOLOGY, [address] [place] [address] Magdaleno De La Rosa M.D. Director [facility] Permit #[id number] RESULT JOEL'D 14 RESULT JOEL'D 15 ---- RUN DATE: 05/19/10 [facility] NMI LIVE PAGE 1 RUN TIME: 1455 Specimen Inquiry RUN USER: INTERFACE -- Name: VILMA VANEGAS Status: REG REF Re05/19/10 Age/Sex: 69/F Unit#: [id number] Location: [facility]. : 39 -- Specimen: [id number] SOUT Spec Date: 05/19/[address]: Mary Kate Ansari MD Spec Type: CYTOLOGY Received: 05/19/10-1100 Copies to: Demario Duff MD SOURCE FINE NEEDLE ASPIRATION left thyroid, US guided PATIENT INFORMATION ACTUAL COLLECTION DATE: 05/19/10 PATIENT HISTORY: left superior thyroid nodule, 1.4 cm GROSS DESCRIPTION Ultrasound guided fine needle aspiration x 2 passes with 2 alcohol fixed slide(s) and Needle rinse in Cytolyt solution (clear) for cell block. IMMEDIATE INTERPRETATION Thyroid, left, Ultrasound guided fine needle aspiration: Pass 1- indeterminant, colloid only. Pass 2- Adequate DIAGNOSIS Thyroid, left, Ultrasound guided fine needle aspiration: Benign thyroid nodule: Colloid/hyperplastic type (see comment). COMMENT The specimen demonstrates abundant watery colloid, a moderate amount of benign appearing follicular epithelium arranged in uniform sheets, medium sized follicles and only occasional small groups. No features of papillary carcinoma are seen. In this clinical setting the risk of malignancy is less than 3%. Clinical management of this thyroid nodule should be based on clinical and radiographic features as well as the above. A cell block was prepared in the evaluation of this specimen. Smears and cell block reveal similar findings. Initial evaluation performed by Chinedu EUGENE([facility]) 05/19/10 Final Interpretation electronically signed by: MAGDALENO DE LA ROSA MD 05/19/10 14 55 -- DEPARTMENT OF PATHOLOGY, [address] [place] [address] [facility] Permit #[id number] Josie Crockett M.D. Assistant Dir frieda -- 16 ---- RUN DATE: 05/19/10 [facility] NMI LIVE PAGE 1 RUN TIME: 1455 Specimen Inquiry RUN USER: INTERFACE -- Name: VILMA VANEGAS Viki Muir#: [id number] Status: REG REF Re05/19/10 Age/Sex: 69/F Unit#: [id number] Location: N[facility]LE : 39 -- Specimen: [id number] Spec Date: 05/19/10 [facility] Dr: Mary Kate Ansari MD Spec Type: CYTOLOGY Received: 05/19/10-1051 Copies to: Demario Duff MD SOURCE FINE NEEDLE ASPIRATION Right thyroid, US guided PATIENT INFORMATION ACTUAL COLLECTION DATE: 05/19/10 PATIENT HISTORY: 1.4 cm ill-defined hypoechoic nodule, superior right thyroi d GROSS DESCRIPTION Ultrasound guided fine needle aspiration x 3 passes with 3 alcohol fixed slide(s) and Needle rinse in Cytolyt solution (clear) for cell block . IMMEDIATE INTERPRETATION Thyroid, right, Ultrasound guided fine needle aspiration: Pass 1 and pass 2: Possibly adequate, scant Pass 3: Adequate material DIAGNOSIS Thyroid, right, Ultrasound guided fine needle aspiration: Benign thyroid nodule: Colloid/hyperplastic type (see comment). COMMENT The specimen demonstrates modest watery colloid, a modest amount of benign appearing follicular epithelium arranged in uniform sheets, medium sized follicles and only occasional small groups. No features of papillary carcinoma are seen. In this clinical setting the risk of malignancy is less than 3%. Clinical management of this thyroid nodule should be based on clinical and radiographic features as well as the above. A cell block was prepared in the evaluation of this specimen. Smears and cell block reveal similar findings. Initial evaluation performed by Chinedu EUGENE([facility]) 05/19/10 Final Interpretation electronically signed by: MAGDALENO DE LA ROSA MD 05/19/10 14 55 -- DEPARTMENT OF PATHOLOGY, [address] [place] [address] [facility] Permit #[id number] Magdaleno De La Rosa M.D. Director Rod Castro M.D. Crew Dispatcher Dir frieda -- 17 pour off serum 18 FASTING 19 consistent w/previous results 20 consistent w/previous results 21 FASTING; 1 pour off tube with serum 22 RESULT VERIFIED BY REPEAT ANALYSIS 23 FASTING 24 Triglyceride Risk Levels: Normal : <150 mg/dl Borderline : 150-199 mg/dl High : 200-499 mg/dl Very High : >500 mg/dl . 25 Cholesterol Risk Levels (NIH) Recommended: under 200 mg/dl Borderline : 200-239 mg/dl High Risk : Above 240 mg/dl . 26 The National Cholesterol Education Program recommends the following ranges for LDL Cholesterol: Optimal under 100 mg/dl Near or above Optimal 100 - 129 mg/dl Borderline High 130 - 159 mg/dl High 160 - 189 mg/dl Very High above 190 mg/dl . 27 LDL/HDL Risk Ratio Levels MALE FEMALE 1/2 X Average 1.00 1.47 Average 3.55 3.22 2 X Average 6.25 5.03 3 X Average 7.99 6.14 . 28 CHOL/HDL Risk Ratio Levels MALE FEMALE 1/2 X Average 3.4 3.3 Average 5.0 4.4 2 X Average 9.5 7.0 3 X Average 24.0 11.0 . 29 . Normal Function or Mild Renal Disease, if clinically at risk: >or=60 Moderately decreased: 30 - 59 Severely decreased: 15 - 29 Renal Failure: <15 . Please note that the MDRD equation requires an additional adjustment for -Americans (multiply the GFR result by 1.210). . Glomerular Filtration Rate (GFR) is estimated based on the MDRD equation, which assumes a steady state for creatinine (Elizabeth Int Med 139/2 137-149, 2003), as recommended by the National Kidney Disease Education Program in conjunction with the National Institutes of Health and the National Kidney Foundation. . Clinical conditions in which it may be necessary to measure GFR by using clearance methods include extremes of age and body size, severe malnutrition or obesity, diseases of skeletal muscle, paraplegia or quadriplegia, vegetarian diet, rapidly changing kidney function, and calculation of the dose of potentially toxic drugs that are excreted by the kidneys. . Procedures Date CPT Code Description Status Comment 01/08/2016 37694 Pulse Oximetry Completed 07/17/2014 88135 Inject/Drain Joint/Bursa Major Completed 05/07/2014 93391 Pulse Oximetry Completed 04/30/2014 59174 Pulse Oximetry Completed 04/30/2014 33395 Nebulizer Treatment Completed 04/26/2014 Mammogram Completed 03/02/2014 24676 Pulse Oximetry Completed 06/09/2011 62338 Pulse Oximetry Completed 03/10/2011 30964 Pulse Oximetry Completed 03/03/2011 14032 Pulse Oximetry Completed 10/02/2009 51945 Pulse Oximetry Completed 11/13/2008 68706 Injection Subcutaneous Or Completed Intramuscular 11/13/200840300 Inject/Drain Joint/Bursa Major Completed 07/10/2008 Mammogram Completed 01/25/2008 Mammogram Completed WNL 04/26/2005 Bone Mineral Density Test Completed 04/26/2005 Colonoscopy Completed POLYPS REPEAT 5 YEARS 03/17/2005 58017 Electrocardiogram Complete Completed Encounters Type Date Location Provider CPT E/M Dx Office Visit 09/09/2016 10:00a Main Office Demario Duff 34996 R21 Josie Office Visit 07/28/2016 9:20a [facility] Demario Duff 17190 E78.00 Josie R21 J45.30 Office Visit 05/27/2016 11:30a Main Office LIMA Higgins 70791 N39.0 J44.9 Office Visit 02/25/2016 9:10a [facility] Demario Duff M.D. 33441 Z23 Z01.818 G45.9 J44.9 Office Visit 01/08/2016 3:20p Main Office Demario Duff M.D. 88722 R09.1 Office Visit 12/20/2015 10:00a Main Office Demario Duff M.D. 93703 J18.9 Office Visit 10/22/2015 9:20a [facility] Demario Duff M.D. 02647 G45.9 E78.0 Office Visit 07/09/2015 9:40a [facility] Demario Duff M.D. 16630 G45.9 E78.0 Office Visit 03/05/2015 9:40a [facility] Demario Duff M.D. 83568 G45.9 E78.0 Office Visit 01/29/2015 9:40a [facility] Demario Duff M.D. 46829 Z23 E78.4 I67.848 Office Visit 10/23/2014 9:00a [facility] Demario Duff M.D. 10436 272.4 435.9 Office Visit 07/17/2014 9:40a [facility] Demario Duff M.D. 71502 272.4 726.19 Office Visit 05/15/2014 11:20a [facility] Demario Duff M.D. 88117 V04.81 435.9 Office Visit 05/07/2014 10:30a [facility] HELIO SmartP 94494 786.05 466.0 Office Visit 04/30/2014 2:30p [facility] Office HELIO SmartP 90171 780.60 786.05 Office Visit 03/06/2014 2:10p [facility] Demario Duff M.D. 04660 486 Office Visit 03/02/2014 4:10p Main Office Demario Duff M.D. 01632 486 Office Visit 11/07/2013 10:10a [facility] Demario Duff M.D. 78436 724.79 Office Visit 08/07/2013 3:00p Main Office Demario Duff M.D. 03919 789.03 784.0 780.60 780.79 724.5 Office Visit 05/16/2013 1:20p [facility] Demario Duff M.D. 06153 493.90 Office Visit 05/10/2012 10:10a [facility] Demario Duff M.D. 46684 719.45 272.4 782.1 Office Visit 06/09/2011 8:00a [facility] Demario Duff M.D. 13016 465.9 482.9 Office Visit 03/10/2011 10:10a [facility] Demario Duff M.D. 73873 482.9 Office Visit 03/03/2011 2:10p [facility] Demario Duff M.D. 72915 482.9 Office Visit 09/01/2010 3:20p Main Office Demario Duff M.D. 48042 719.45 Office Visit 04/09/2010 9:20a Main Office Demario Duff M.D. 64638 465.9 Office Visit 10/02/2009 11:20a [facility] Fuentes Egan M.D. 08941 466.0 Office Visit 05/14/2009 1:10p [facility] Demario Duff M.D. 00251 784.7 466.0 Office Visit 02/21/2009 4:00p [facility] Mark Pinzon M.D. 09802 465.9 466.0 493.90 Office Visit 11/13/2008 3:00p [facility] Demario Duff M.D. 60341 719.41 Office Visit 07/24/2008 10:10a [facility] Demario Duff M.D. 15810 719.41 729.5 Office Visit 07/03/2008 1:00p [facility] Demario Duff M.D. 64051 719.41 719.42 611.71 Office Visit 06/12/2008 11:20a [facility] Demario Duff M.D. 40665 719.41 719.42 Office Visit 02/21/2008 4:00p [facility] Yessi Med Shukla 87014 466.0 493.90 784.1 Office Visit 05/09/2007 2:10p Main Office Demario Duff M.D. 55099 729.5 Office Visit 08/18/2005 1:10p [facility] Demario Duff M.D. 53886 485 Office Visit 06/22/2005 11:00a Main Office Demario Duff M.D. 50373 462 Office Visit 05/19/2005 2:20p [facility] Demario Duff M.D. 86860 729.5 493.90 V72.83 727.1 Office Visit 03/17/2005 9:00a [facility] Demario Duff M.D. 21688 493.90 780.79 715.09 272.4 780.57 V70.0 Office Visit 01/14/2004 11:00a Main Office Demario Duff M.D. 06338 511.0 Office Visit 01/11/2004 9:25a [facility] Demario Duff M.D. 68651 493.90 272.4 Office Visit 01/11/2004 9:10a [facility] Demario Duff M.D. 43477 493.90 272.4 Office Visit 10/02/2003 1:20p [facility] Demario Duff M.D. 06992 493.90 Plan of Care 05/14/2017 - Karmen Nix, NPR06.03 Acute respiratory distressComments: Please go directly to the emergency department for further management.J44.1 Chronic obstructive pulmonary disease w (acute) exacerbation
[2017-05-14] MEDS ORDERED: NS 0.9% 1000 ML* 1,000 ML IV ONE (15:54)
[2017-05-14] MEDS ORDERED: cefTRIAXone(*) 1 GM in NS 0.9% 50 ML* 50 ML IVPB ONE (15:54)
[2017-05-14] MEDS ORDERED: methylPREDNISolone 125 MG* 2 ML VIAL IV ONE (15:54)
[2017-05-14] MEDS ORDERED: Azithromycin IV(*) 500 MG in NS 0.9% 250 ML* 250 ML IVPB ONE (15:54)
[2017-05-14] MEDS ORDERED: Acetaminophen TAB* 325 MG PO ONE (15:56)
--- NOTE | 2017-05-14 16:20 | RAD ---
INDICATION: Shortness of breath COMPARISON: Chest x-ray dated May 08, 2014 TECHNIQUE: Single AP portable view of the chest was obtained. FINDINGS: Image quality is compromised due to the relative inferiority of a portable chest x-ray. The heart and mediastinum exhibit normal size and contour. The lungs are grossly clear. There is no evidence of a large pleural effusion. Visualized bones are normal for the patient's age. IMPRESSION: No radiographic evidence for acute cardiopulmonary abnormality on this portable chest x-ray.
[2017-05-14] MEDS ORDERED: Azithromycin IV* 500 MG ADVAN VIAL IVPB ONE (16:21)
[2017-05-14] MEDS: Albuterol/Ipratropium NEB.SOL* Albuterol 2.5 MG/Ipratropium 0.5 MG 3 ML INH ONE ×2 (16:32→16:58)
[2017-05-14] MEDS ORDERED: Acetaminophen TAB* 325 MG ONE (16:50)
[2017-05-14 16:51] LABS: ABS Basophils 0 10^3/ul (0-0.2); ABS Eosinophils 0 10^3/ul (0-0.6); ABS Lymphocytes 0.5 10^3/ul (1.0-4.8); ABS Monocytes 0.7 10^3/ul (0-0.8); ABS Neutrophils 15.2 10^3/ul (1.5-7.7); ABS Nucleated RBC 0 10^3/ul; Eosinophil % 0 % (0-6); Hematocrit 37 % (35-47); Hemoglobin 12.5 g/dl (12.0-16.0); Lymphocyte % 3.2 % (25-47); Mean Corpuscular HGB Conc 34 g/dl (31-36); Mean Corpuscular Hemoglobin 30 pg (27-31); Mean Corpuscular Volume 89 fL (80-97); Mean Platelet Volume 8 um3 (7.4-10.4); Nucleated Red Blood Cells % 0; Platelet Count 181 10^3/ul (150-450); Red Blood Count 4.17 10^6/ul (4.0-5.4); Red Cell Distribution Width 14 % (10.5-15); White Blood Count 16.3 10^3/ul (3.5-10.8)
[2017-05-14] MEDS ORDERED: Albuterol/Ipratropium NEB.SOL* Albuterol 2.5 MG/Ipratropium 0.5 MG 3 ML ONE (16:56)
[2017-05-14 17:05] LABS: INR 1.25 (0.77-1.02)
[2017-05-14 17:32] LABS: EGFR Non-African American 58.5 (>60)
[2017-05-14] MEDS ORDERED: Iodixanol* (CONTRAST) 320 MG/ML 100 ML SDV IV ONE (17:44)
--- NOTE | 2017-05-14 18:44 | RAD ---
INDICATION: Cough and right rib pain with shortness of breath COMPARISON: CT of the chest January 09, 2016 TECHNIQUE: Axial source images were acquired following the administration of 60 mL of Visipaque [address] angiographic technique. Coronal and sagittal reconstructed images were constructed and reviewed. FINDINGS: There there are no filling defects in the pulmonary arteries to indicate acute pulmonary embolic disease. New since the previous CT examination are densities at the dependent bilateral lower lobes. In addition there are patchy densities scattered throughout the lungs. For example there is a 1.4 cm density in the lateral aspect of the left upper lobe (image 19 and 65). In the anterior portion of the right middle lobe there is a pleural-based 1.5 cm density (image 23). The heart is normal in size. There is no evidence of pericardial effusion. There is no evidence of aortic aneurysm or dissection. There is atherosclerotic calcification of the coronary arteries. There is coarse calcification at the arch of the aorta. There is mixed attenuation atheroma at the origin of the left subclavian artery narrowing the lumen to approximately 4 mm, greater than 50% degree stenosis. More distally the subclavian artery appears to fill adequately with contrast. There is no mediastinal, hilar, or axillary lymphadenopathy. Degenerative changes of the thoracic spine includes loss of intervertebral disc height and anterior marginal osteophyte formation along the mid-level and lower thoracic spine. Limited views of the upper abdomen show no abnormalities. IMPRESSION: 1. No CT of evidence of pulmonary embolism. 2. Bibasilar dependent consolidations partially with air bronchograms. Differential includes atelectasis versus pneumonia. 3. In addition there are patchy groundglass densities scattered throughout the lungs which are nonspecific and could have an infectious, inflammatory or neoplastic etiology. 4. Mixed attenuation atherosclerosis causing greater than 50% narrowing at the origin of the left subclavian artery. Please correlate to signs or symptoms of subclavian steal phenomenon. Also correlate to any evidence of microemboli to the left upper extremity.
[2017-05-14] MEDS ORDERED: Ibuprofen TAB* 400 MG PO PRN (18:47)
--- NOTE | 2017-05-14 18:51 | ADMNOTE ---
Subjective Date of Service: 05/14/17 Interval History: ADMISSION HISTORY AND PHYSICAL EXAM: Allergies Allergy/AdvReac Type Severity Reaction Status Date / Time Sulfa Drugs Allergy Intermediate See Comment Verified 06/20/16 10:03 Salicylates AdvReac Intermediate See Comment Verified 06/20/16 10:03 mercury Allergy Severe Swelling Uncoded 06/20/16 10:03 Of Face,Lips,& Throat ENVIRONMENTAL/SEASONAL Allergy CONGESTION, Uncoded 06/20/16 10:03 ASTHMA Home Medications Medication Instructions Recorded Confirmed Type Fluticasone-Salmeterol 100-50* 1 puff INH BID 08/05/13 05/14/17 History [Advair Diskus 100-50*] Montelukast Sodium TAB* [Singulair 10 mg PO BEDTIME 08/05/13 05/14/17 History TAB*] Theophylline TAB* [Lavon Dur 300 300 mg PO BID 08/05/13 05/14/17 History MG*] Clopidogrel TAB* [Plavix TAB*] 75 mg PO DAILY 01/01/15 05/14/17 History Clobetasol 0.05% OINT* 1 applic TOPICAL BID 05/14/17 05/14/17 History Simvastatin (NF) [Zocor (NF)] 40 mg PO DAILY 05/14/17 05/14/17 History HPI: Patient became more SOB 3 days ago. Chronic cough was not much different. Yesterday she fell and strained her left ribs. She takes naproxen for this. She tried using her nebulizer but thinks the med she put in was over 5 yrs old. It didn't help. She doesn't have a rescue inhaler, only Advair 100/50. Family History: Findings - Father of lung ca, motherdied of breast ca. Sister and mother had CAD. Social History: Findings - Quit smoking 1982. No alcohol abuse. Lives with her who is her SDM. Past Medical History: Findings - Total gastrectomy for Menetrier's disease. L NICKY. x 3, tonsillectomy, appy, hysterectomy Review of Systems - Measurements Intake and Output: Intake and Output Last 24 Hours 05/12/17 05/13/17 05/14/17 05/15/17 06:59 06:59 06:59 06:59 Intake Total 1300 Balance 1300 Weight 147 lb Intake: IV Fluids 1300 - Review of Systems Constitutional Symptoms: Negative: Weight Gain, Weight Loss, Weakness, Fatigue, Fever, Night Sweats, Unexplained Falls, Other Dermatology: Positive: Normal HEENT: Positive: Normal Eyes: Positive: Normal Thyroid: Positive: Normal Pulmonary: Positive: Shortness of Breath, COPD Cardiology: Positive: Normal Gastroenterology: Positive: Normal Genital - Urinary: Positive: Normal Musculoskeletal: Positive: Joint Pain Endocrinology: Positive: Normal Hematologic/Lymphatic: Negative: Anemia, Easy Brusing, Hx Leukemia, Hx Lymphoma, Use of Anticoagulant, Use of Antiplatelet Drugs, Other Neurology: Positive: Normal Psychiatry: Positive: Normal Allergic/Immunologic: Negative: Hx Anaphylaxis, Hx Angioedema, Hx Environmental, Hx Seasonal, Athsma, Hx HIV, Immunocompromise, Swollen Glands LymphNodes, Other Objective Active Medications: Albuterol/Ipratropium (Duoneb (Albuterol 2.5 Mg/Ipratropium 0.5 Mg)) 1 neb INH [id number] Atorvastatin Calcium (Lipitor*) 20 mg PO DAILY [facility] Azithromycin (Zithromax Tab*) 250 mg PO DAILY [facility] Cefuroxime Axetil (Ceftin Tab 500 Mg(*)) 500 mg PO BID [facility] Clobetasol Propionate (Clobetasol 0.05% Oint*) 1 applic TOPICAL BID [facility] Clopidogrel Bisulfate (Plavix Tab*) 75 mg PO DAILY [facility] Enoxaparin Sodium (Lovenox(*)) 40 mg SUBCUT Q24H [facility] Guaifenesin (Robitussin*) 10 ml PO QID [facility] Sodium Chloride (Ns 0.9% 1000 Ml*) 1,000 mls @ 100 mls/hr IV ED ONCE ONE Stop: 05/15/17 01:53 Last Admin: 05/14/17 16:27 Dose: 100 mls/hr Montelukast Sodium (Singulair Tab*) 10 mg PO BEDTIME [facility] Prednisone (Deltasone Tab*) 60 mg PO ONCE ONE Stop: 05/15/17 09:01 Vital Signs - 8 hr 05/14/17 05/14/17 05/14/17 15:16 15:32 15:34 Temperature 99.4 F Pulse Rate 108 104 Respiratory 20 27 Rate Blood Pressure 130/58 138/68 (mmHg) O2 Sat by Pulse 90 90 Oximetry 05/14/17 05/14/17 05/14/17 15:37 16:00 16:30 Temperature 103.2 F Pulse Rate 103 100 Respiratory 26 22 22 Rate Blood Pressure 138/68 120/64 130/62 (mmHg) O2 Sat by Pulse 90 92 Oximetry 05/14/17 05/14/17 05/14/17 17:00 17:01 17:30 Temperature Pulse Rate 103 103 107 Respiratory 24 16 25 Rate Blood Pressure 115/57 115/51 (mmHg) O2 Sat by Pulse 93 98 91 Oximetry 05/14/17 05/14/17 18:00 18:03 Temperature 100.7 F Pulse Rate 103 Respiratory 23 Rate Blood Pressure (mmHg) O2 Sat by Pulse 92 Oximetry Oxygen Devices in Use Now: Nasal Cannula Appearance: Alert, partly up on ED stretcher. In good spirits. Looks comfortable. Eyes: No Scleral Icterus Neck: NL Appearance and Movements; NL JVP, No Thyroid Enlargement, Masses Respiratory: Symmetrical Chest Expansion and Respiratory Effort, Clear to Percussion - mild to mod rhonchi BL Cardiovascular: NL Sounds; No Murmurs; No JVD, RRR, No Edema, - Abdominal: NL Sounds; No Tenderness; No Distention, No Hepatosplenomegaly, - Extremities: No Edema, No Clubbing, Cyanosis, - Skin: No Rash or Ulcers, No Nodules or Sclerosis, - Neurological: Alert and Oriented x 3, NL Sensation Result Diagrams: 05/14/17 16:30 05/14/17 16:30 Microbiology and Other Data: Microbiology 05/14/17 15:45 Influenza Types A,B Antigen (GENO) - Final Nasal Specimen received for Influenza A/B Molecular testing Assess/Plan/Problems-Billing Assessment: - Patient Problems (1) COPD exacerbation Current Visit: Yes Status: Acute Code(s): J44.1 - CHRONIC OBSTRUCTIVE PULMONARY DISEASE W (ACUTE) EXACERBATION SNOMED Code(s): 945149242 Comment: Abnl CT scan does not correlate well with clinical picture. I would repeat the CT scan in 6 weeks. Received ceftriaxone and azithro in ED, continue azithro and cefuroxime. Needs rescue inhaler at home, Duoneb PRN for nebulizer. (2) Menetrier's disease Current Visit: Yes Status: Acute Code(s): K29.60 - OTHER GASTRITIS WITHOUT BLEEDING SNOMED Code(s): 06537395 Comment: Patient has adapted well to her post-surgical state.
--- NOTE | 2017-05-14 18:52 | ED ---
Jeff Triplett Thomas, scribed for Shiv Simmons on 05/14/17 at 1648 . Shortness of Breath - HPI Summary HPI Summary: The patient is a 76 year old female who complains of flu like symptoms that began three days ago. She complains of fever, shortness of breath, chest pain, a productive cough, myalgia, and that she cannot breathe well. The patient has COPD and she is not on home oxygen. She is accompanied today by her . - History of Current Complaint Chief Complaint: EDShortnessOfBreath Time Seen by Provider: 05/14/17 15:30 Hx Obtained From: Patient Onset/Duration: Lasting Days - 3 days, Still Present Current Severity: Moderate Aggrevating Factors: Nothing Alleviating Factors: Nothing Associated Signs & Symptoms: Cough (Productive), Wheezing, Chest Pain w/Cough, Chest Pain Unrelated to Cough, Fever - Allergy/Home Medications Allergies/Adverse Reactions: Allergies Allergy/AdvReac Type Severity Reaction Status Date / Time Sulfa Drugs Allergy Intermediate See Comment Verified 06/20/16 10:03 Salicylates AdvReac Intermediate See Comment Verified 06/20/16 10:03 mercury Allergy Severe Swelling Uncoded 06/20/16 10:03 Of Face,Lips,& Throat ENVIRONMENTAL/SEASONAL Allergy CONGESTION, Uncoded 06/20/16 10:03 ASTHMA Home Medications: Home Medications Clobetasol 0.05% OINT* 1 applic TOPICAL BID 05/14/17 [History Confirmed 05/14/17 ] Simvastatin (NF) [Zocor (NF)] 40 mg PO DAILY 05/14/17 [History Confirmed ] PMH/Surg Hx/FS Hx/Imm Hx Endocrine/Hematology History: Reports: 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, NO PROBLEMS SINCE ADULTHOOD Denies: Hx Diabetes, Hx Systemic Lupus Erythematosus Cardiovascular History: Reports: Other Cardiovascular Problems/Disorders Denies: Hx Congestive Heart Failure, Hx Hypertension, Hx Pacemaker/ICD Respiratory History: Reports: Hx Asthma - INHALER, Hx Pneumonia GI History: Reports: Other GI Disorders - gastrectomy 2006 FOR ADHESIONS History: Reports: Hx Kidney Infection, Hx Kidney Stones, Other Problems/ Disorders - RIGHT HYDRONEPHROSIS Denies: Hx Renal Disease Musculoskeletal History: Reports: Hx Arthritis Denies: Hx Rheumatoid Arthritis Sensory History: Reports: Hx Cataracts - BEGINNING, Hx Contacts or Glasses, Hx Hearing Aid - BILATERAL, DOES NOT ALWAYS WEAR Opthamlomology History: Reports: Hx Cataracts - BEGINNING, Hx Contacts or Glasses Psychiatric History: Denies: Hx Panic Disorder - Cancer History Hx Chemotherapy: No - Surgical History Surgery Procedure, Year, and Place: Stent Rt kidney July 2013 removed, Lt Hip replacement 08/2012, 3 C-sections, Complete Hysterectomy, Adhesions-Colon, Menetrier's Disease-Partial Gastric surgery 1984, right Breast Biopsy-Benign Hx Anesthesia Reactions: Yes - 1960'S CONSTANT CRYING - Immunization History Date of Influenza Vaccine: 02/09 Infectious Disease History: No Infectious Disease History: Denies: Traveled Outside the [place] in Last 30 Days - Family History Known Family History: Positive: Cardiac Disease - Social History Alcohol Use: None Substance Use Type: Reports: None Smoking Status (MU): Former Smoker Length of Time of Smoking/Using Tobacco: OFF AND ON FOR ABOUT 16 YEAR Have You Smoked in the Last Year: No Review of Systems Positive: Fever Positive: Chest Pain Positive: Shortness Of Breath, Cough, Other - Difficulty breathing Positive: Myalgia All Other Systems Reviewed And Are Negative: Yes Physical Exam - Summary Physical Exam Summary: Appearance: Well appearing, no pain distress Skin: warm, dry, reflects adequate perfusion Head/face: normal Eyes: EOMI, SON ENT: Dry mucous membranes. Neck: supple, non-tender Respiratory: Bilateral wheezing, Rhonchi, Cardiovascular: Tachycardic. Regular rhythm. pulses symmetrical Abdomen: non-tender, soft Bowel: present Musculoskeletal: normal, strength/ROM intact Neuro: normal, sensory motor intact, A&Ox3 Triage Information Reviewed: Yes Vital Signs On Initial Exam: Initial Vitals Temp Pulse Resp BP Pulse Ox 99.4 F 108 20 130/58 90 05/14/17 15:16 05/14/17 15:16 05/14/17 15:16 05/14/17 15:16 05/14/17 15:16 Vital Signs Reviewed: Yes - [place] Coma Scale Coma Scale Total: 15 Diagnostics - Vital Signs Vital Signs Temp Pulse Resp BP Pulse Ox 05/14/17 15:37 103.2 F 103 26 138/68 90 05/14/17 15:16 99.4 F 108 20 130/58 90 - Laboratory Lab Results: Lab Results 05/14/17 05/14/17 05/14/17 Range/Units 16:09 16:20 16:30 WBC (3.5-10.8) 10^3/ul RBC (4.0-5.4) 10^6/ul Hgb (12.0-16.0) g/dl Hct (35-47) % MCV (80-97) fL MCH (27-31) pg MCHC (31-36) g/dl RDW (10.5-15) % Plt Count (150-450) 10^3/ul MPV (7.4-10.4) um3 Neut % (Auto) (38-83) % Lymph % (Auto) (25-47) % [place] % (Auto) (1-9) % Eos % (Auto) (0-6) % Baso % (Auto) (0-2) % Absolute Neuts (auto) (1.5-7.7) 10^3/ul Absolute Lymphs (auto) (1.0-4.8) 10^3/ul Absolute Monos (auto) (0-0.8) 10^3/ul Absolute Eos (auto) (0-0.6) 10^3/ul Absolute Basos (auto) (0-0.2) 10^3/ul Absolute Nucleated RBC 10^3/ul Nucleated RBC % INR (Anticoag Therapy) (0.77-1.02) APTT (26.0-36.3) seconds Patient Temperature Not Reportable ABG pH 7.50 H (7.35-7.45) ABG pH (Temp Correct) Not Reportable ABG pCO2 27 L (35-45) mmHg ABG pCO2 (Temp Corrct Not Reportable ABG pO2 55 L* (80-100) mmHg ABG pO2 (Temp Correct Not Reportable ABG HCO3 24.1 (19-31) mmol/L ABG O2 Saturation 93.2 L (95-98) % ABG Base Excess -0.9 (-2.0-2.0) Respiration Rate Not Reportable O2 Delivery Device N/c Ventilator Type Not Reportable Vent Mode Not Reportable FiO2 Not Reportable Inspiratory Time Not Reportable PEEP Not Reportable Pressure Support Not Reportable Pressure Control Not Reportable EPAP Not Reportable IPAP Not Reportable BiPAP Not Reportable Sodium (133-145) mmol/L Potassium (3.5-5.0) mmol/L Chloride (101-111) mmol/L Carbon Dioxide (22-32) mmol/L Anion Gap (2-11) mmol/L BUN (6-24) mg/dL Creatinine (0.51-0.95) mg/dL Est GFR ( Amer) (>60) Est GFR (Non-Af Amer) (>60) BUN/Creatinine Ratio (8-20) Glucose (70-100) mg/dL Lactic Acid (0.5-2.0) mmol/L Calcium (8.6-10.3) mg/dL Total Bilirubin (0.2-1.0) mg/dL AST (13-39) U/L ALT (7-52) U/L Alkaline Phosphatase (34-104) U/L Troponin I (<0.04) ng/mL B-Natriuretic Peptide 97 ( - 100) pg/mL Total Protein (6.4-8.9) g/dL Albumin (3.2-5.2) g/dL Globulin (2-4) g/dL Albumin/Globulin Ratio (1-3) Influenza A (Rapid) Negative (Negative) Influenza B (Rapid) Negative (Negative) 05/14/17 05/14/17 05/14/17 Range/Units 16:30 16:30 16:30 WBC 16.3 H (3.5-10.8) 10^3/ul RBC 4.17 (4.0-5.4) 10^6/ul Hgb 12.5 (12.0-16.0) g/dl Hct 37 (35-47) % MCV 89 (80-97) fL MCH 30 (27-31) pg MCHC 34 (31-36) g/dl RDW 14 (10.5-15) % Plt Count 181 (150-450) 10^3/ul MPV 8 (7.4-10.4) um3 Neut % (Auto) 92.7 H (38-83) % Lymph % (Auto) 3.2 L (25-47) % [place] % (Auto) 4.0 (1-9) % Eos % (Auto) 0 (0-6) % Baso % (Auto) 0.1 (0-2) % Absolute Neuts (auto) 15.2 H (1.5-7.7) 10^3/ul Absolute Lymphs (auto) 0.5 L (1.0-4.8) 10^3/ul Absolute Monos (auto) 0.7 (0-0.8) 10^3/ul Absolute Eos (auto) 0 (0-0.6) 10^3/ul Absolute Basos (auto) 0 (0-0.2) 10^3/ul Absolute Nucleated RBC 0 10^3/ul Nucleated RBC % 0 INR (Anticoag Therapy) 1.25 H (0.77-1.02) APTT 29.2 (26.0-36.3) seconds Patient Temperature ABG pH (7.35-7.45) ABG pH (Temp Correct) ABG pCO2 (35-45) mmHg ABG pCO2 (Temp Corrct ABG pO2 (80-100) mmHg ABG pO2 (Temp Correct ABG HCO3 (19-31) mmol/L ABG O2 Saturation (95-98) % ABG Base Excess (-2.0-2.0) Respiration Rate O2 Delivery Device Ventilator Type Vent Mode FiO2 Inspiratory Time PEEP Pressure Support Pressure Control EPAP IPAP BiPAP Sodium 128 L (133-145) mmol/L Potassium 3.8 (3.5-5.0) mmol/L Chloride 96 L (101-111) mmol/L Carbon Dioxide 22 (22-32) mmol/L Anion Gap 10 (2-11) mmol/L BUN 18 (6-24) mg/dL Creatinine 0.93 (0.51-0.95) mg/dL Est GFR ( Amer) 75.2 (>60) Est GFR (Non-Af Amer) 58.5 (>60) BUN/Creatinine Ratio 19.4 (8-20) Glucose 120 H (70-100) mg/dL Lactic Acid (0.5-2.0) mmol/L Calcium 8.8 (8.6-10.3) mg/dL Total Bilirubin 0.90 (0.2-1.0) mg/dL AST 38 (13-39) U/L ALT 29 (7-52) U/L Alkaline Phosphatase 86 (34-104) U/L Troponin I 0.03 (<0.04) ng/mL B-Natriuretic Peptide ( - 100) pg/mL Total Protein 6.2 L (6.4-8.9) g/dL Albumin 3.2 (3.2-5.2) g/dL Globulin 3.0 (2-4) g/dL Albumin/Globulin Ratio 1.1 (1-3) Influenza A (Rapid) (Negative) Influenza B (Rapid) (Negative) 05/14/17 Range/Units 16:30 WBC (3.5-10.8) 10^3/ul RBC (4.0-5.4) 10^6/ul Hgb (12.0-16.0) g/dl Hct (35-47) % MCV (80-97) fL MCH (27-31) pg MCHC (31-36) g/dl RDW (10.5-15) % Plt Count (150-450) 10^3/ul MPV (7.4-10.4) um3 Neut % (Auto) (38-83) % Lymph % (Auto) (25-47) % [place] % (Auto) (1-9) % Eos % (Auto) (0-6) % Baso % (Auto) (0-2) % Absolute Neuts (auto) (1.5-7.7) 10^3/ul Absolute Lymphs (auto) (1.0-4.8) 10^3/ul Absolute Monos (auto) (0-0.8) 10^3/ul Absolute Eos (auto) (0-0.6) 10^3/ul Absolute Basos (auto) (0-0.2) 10^3/ul Absolute Nucleated RBC 10^3/ul Nucleated RBC % INR (Anticoag Therapy) (0.77-1.02) APTT (26.0-36.3) seconds Patient Temperature ABG pH (7.35-7.45) ABG pH (Temp Correct) ABG pCO2 (35-45) mmHg ABG pCO2 (Temp Corrct ABG pO2 (80-100) mmHg ABG pO2 (Temp Correct ABG HCO3 (19-31) mmol/L ABG O2 Saturation (95-98) % ABG Base Excess (-2.0-2.0) Respiration Rate O2 Delivery Device Ventilator Type Vent Mode FiO2 Inspiratory Time PEEP Pressure Support Pressure Control EPAP IPAP BiPAP Sodium (133-145) mmol/L Potassium (3.5-5.0) mmol/L Chloride (101-111) mmol/L Carbon Dioxide (22-32) mmol/L Anion Gap (2-11) mmol/L BUN (6-24) mg/dL Creatinine (0.51-0.95) mg/dL Est GFR ( Amer) (>60) Est GFR (Non-Af Amer) (>60) BUN/Creatinine Ratio (8-20) Glucose (70-100) mg/dL Lactic Acid 1.9 (0.5-2.0) mmol/L Calcium (8.6-10.3) mg/dL Total Bilirubin (0.2-1.0) mg/dL AST (13-39) U/L ALT (7-52) U/L Alkaline Phosphatase (34-104) U/L Troponin I (<0.04) ng/mL B-Natriuretic Peptide ( - 100) pg/mL Total Protein (6.4-8.9) g/dL Albumin (3.2-5.2) g/dL Globulin (2-4) g/dL Albumin/Globulin Ratio (1-3) Influenza A (Rapid) (Negative) Influenza B (Rapid) (Negative) Result Diagrams: 05/14/17 16:30 05/14/17 16:30 Lab Statement: Any lab studies that have been ordered have been reviewed, and results considered in the medical decision making process. - Radiology CXR Xray Interpretation: No Acute Changes - No radiographic evidence for acute cardiopulmonary abnormality on this portable chest x-ray. Dr. Simmons has reviewed this report. Radiology Interpretation Completed By: Radiologist - EKG 16:10 Cardiac Rate: Tachycardia EKG Rhythm: Sinus Tachycardia - 101 BPM Course/Dx - Course Assessment/Plan: The patient is a 76 year old female who complains of shortness of breath, chest pain, a productive cough, and myalgia. She has COPD. In the ED course the patient was given Tylenol, Duoneb, IV fluids, Solumedrol, Rocephin, and Zithromax. Bloodwork and urinalysis were obtained. CXR was obtained. EKG was sinus tachycardia. Rapid flu A & B were negative. The patient is diagnosed with COPD exacerbation, fever, hypoxia, and respiratory failure. The patient was admitted to the hospital. - Diagnoses Differential Diagnosis/HQI/PQRI: Positive: Asthma, Bronchitis, COPD Exacerbation , Pneumonia, Other - resp failure Provider Diagnoses: COPD exacerbation, Fever, Hypoxia, Respiratory failure - Physician Notifications Discussed Care of Patient With: Terell Manley Time Discussed With Above Provider: 18:17 Instructed by Provider To: Admit As Inpatient Discharge - Discharge Plan Condition: Fair Disposition: ADMITTED TO [facility] Referrals: Demario Duff MD [Primary Care Provider] - The documentation as recorded by the Jeff riddle Thomas accurately reflects the service I personally performed and the decisions made by Iris rodriguez Emmanuel.
[2017-05-14] MEDS: Albuterol/Ipratropium NEB.SOL* Albuterol 2.5 MG/Ipratropium 0.5 MG 3 ML INH SCH ×2 (19:48→23:14)
[2017-05-14] MEDS ORDERED: Enoxaparin(*) 40 MG/0.4 ML SYR SUBCUT SCH (20:00)
[2017-05-14] MEDS: guaiFENesin LIQ* 100 MG/5 ML UDC PO SCH (20:28)
[2017-05-14] MEDS: Clobetasol 0.05% OINT* 30 GM TUBE TOPICAL SCH (20:33)
[2017-05-14] MEDS ORDERED: Atorvastatin* 20 MG TAB PO SCH (21:00)
[2017-05-14] MEDS ORDERED: Montelukast Sodium TAB* 10 MG PO SCH (21:00)
[2017-05-14 23:40] LABS: Urine Appearance Cloudy; Urine Blood Negative (Negative); Urine Color Yellow; Urine Ketones Trace (Negative); Urine Protein Negative (Negative); Urine Specific Gravity 1.043 (1.010-1.030); Urine Urobilinogen Negative (Negative)
[2017-05-15] MEDS: Albuterol/Ipratropium NEB.SOL* Albuterol 2.5 MG/Ipratropium 0.5 MG 3 ML INH SCH ×2 (02:48→07:35)
[2017-05-15 07:26] VITALS: BP 102/59
[2017-05-15] MEDS: Clobetasol 0.05% OINT* 30 GM TUBE TOPICAL SCH (08:26)
[2017-05-15] MEDS: guaiFENesin LIQ* 100 MG/5 ML UDC PO SCH (08:26)
[2017-05-15] MEDS ORDERED: Clopidogrel TAB* 75 MG PO SCH (09:00)
[2017-05-15] MEDS ORDERED: predniSONE TAB* 10 MG PO ONE (09:00)
[2017-05-15] MEDS ORDERED: Albuterol/Ipratropium NEB.SOL* Albuterol 2.5 MG/Ipratropium 0.5 MG 3 ML INH SCH (13:00)
[2017-05-15] MEDS ORDERED: ceFUROXime TAB(*) 250 MG PO SCH (14:00)
[2017-05-15] MEDS ORDERED: Azithromycin TAB* 250 MG PO SCH (15:00)
--- NOTE | 2017-05-15 19:52 | DS ---
CC: Dr. Duff DISCHARGE SUMMARY: DATE OF ADMISSION: 05/14/17 DATE OF DISCHARGE: 05/15/17 HISTORY: This 76-year-old woman was ill for about 3 days with shortness of breath. She had a chronic cough. She did bring up a little purulent sputum while in the hospital with the aid of a flutter valve. She fell the day before and strained her left ribs. She takes naproxen for this. She has a nebulizer, but the medicine she had was 5 years old and did not help her. She does not have a rescue inhaler. The rest of the history is detailed in the admission note. The patient felt much better the following morning. She felt that the ipratropium/albuterol nebulizer treatments helped a lot. She received antibiotics in the emergency room. She received Solu-Medrol as well. The patient will be on a tapering course of prednisone, azithromycin. She will receive a course of azithromycin and finish her cephalosporin treatment with cefuroxime. I have changed her Advair Diskus to 250/50. I have prescribed a supply of ipratropium albuterol to use in her nebulizer p.r.n. CT scan was abnormal. Please see the report for details. It may all be simply inflammatory or infectious origin, but I would recommend a followup CT scan in 6 to 8 weeks. DISCHARGE DIAGNOSES: 1. Chronic obstructive pulmonary disease exacerbation. 2. Abnormal CT scan of chest. 3. Menetrier's disease. DISCHARGE MEDICATIONS: 1. Azithromycin 250 mg daily for 4 days. 2. Cefuroxime 500 mg b.i.d. for 6 days. 3. Prednisone 10 mg, taper from 6 to 0 over 6 days. 4. Fluticasone/salmeterol 250/50 one puff b.i.d. 5. Albuterol/ipratropium 1 nebulizer treatment every 4 hours p.r.n. 6. Montelukast 10 mg h.s. 7. Clopidogrel 75 mg daily. 8. Clobetasol 0.05% ointment as directed. 9. Simvastatin 40 mg daily. [id number]/[facility] #: [id number] MTDD
== END 2017-05-15 10:45 | disposition home or self-care (01) ==
LOC: ED 15:13 → MED 18:19 → MEDTELE 18:20 → MED 19:25
PROVIDERS: ADMIT Internal Medicine; ATTEND Internal Medicine
DX: J44.1 Chronic obstructive pulmonary disease with (acute) exacerbation (principal); K29.60 Other gastritis without bleeding; R94.2 Abnormal results of pulmonary function studies; Z79.899 Other long term (current) drug therapy; Z88.2 Allergy status to sulfonamides; Z88.8 Allergy status to other drugs, medicaments and biological substances; Z87.891 Personal history of nicotine dependence; R00.0 Tachycardia, unspecified; I44.4 Left anterior fascicular block
CPT/HCPCS: 36415; 36600; 71045; 71275; 80053; 81003; 81015; 82803; 83605; 83880; 84484; 85025; 85610; 85730; 87040; 87086; 87502; 93005; 94640; 94760; 96365; 96367; 96372; 96375; 99284; A9270-GY; G0378; J0456; J0696; J1650; J2930; J7512; Q9967

== ENCOUNTER 2017-07-20 15:39 | Emergency (ER) | payer MEDICARE, BC ==
[2017-07-20 17:52] VITALS: BP 141/86
--- NOTE | 2017-07-20 18:16 | UC ---
UC General HPI - HPI Summary HPI Summary: Pt is c/o a yellow green drainage from her nose with sinus pain and congestion for a week. On additional hx, she notes some pain around the R eye and anabaptism area plus cloudy vision in R eye. Both are episodic for a week and present now. Pt then offers she hasn't been able to breathe out her R nare for a year. She was planning on seeing ENT in [place] where her goes. No fever, changes in speech or balance. - History of Current Complaint Stated Complaint: SINUSES, RT EYE COMPLAINT Time Seen by Provider: 07/20/17 17:39 Hx Obtained From: Patient Hx Last Menstrual Period: 48 yrs Pain Intensity: 5 Aggravating: nothing Alleviating: nothing Associated Signs & Symptoms: Positive: Headache. Negative: Dizziness, Fever, Nausea - Allergy/Home Medications Allergies/Adverse Reactions: Allergies Allergy/AdvReac Type Severity Reaction Status Date / Time MS Sulfa Drugs [Sulfa Drugs] Allergy Intermediate See Comment Verified 06/20/16 10:03 MS Salicylates [Salicylates] AdvReac Intermediate See Comment Verified 06/20/16 10:03 mercury Allergy Severe Swelling Uncoded 06/20/16 10:03 Of Face,Lips,& Throat ENVIRONMENTAL/SEASONAL Allergy CONGESTION, Uncoded 06/20/16 10:03 ASTHMA Home Medications: Home Medications Theophylline TAB* [Lavon Dur*] 200 mg PO DAILY 07/20/17 [History Confirmed ] PMH/Surg Hx/FS Hx/Imm Hx - Additional Past Medical History Additional PMH: Lung disease Endocrine History: Dyslipidemia - Surgical History Surgical History: Yes Surgery Procedure, Year, and Place: Stent Rt kidney July 2013 removed, Lt Hip replacement 08/2012, 3 C-sections, Complete Hysterectomy, Adhesions-Colon, Menetrier's Disease-Partial Gastric surgery 1984, right Breast Biopsy-Benign - Family History Known Family History: Positive: Cardiac Disease - Social History Occupation: Retired Lives: With Family Alcohol Use: None Substance Use Type: None Smoking Status (MU): Former Smoker Length of Time of Smoking/Using Tobacco: OFF AND ON FOR ABOUT 16 YEARS Have You Smoked in the Last Year: No When Did the Patient Quit Smoking/Using Tobacco: 1982 - Immunization History Most Recent Influenza Vaccination: 2016 Most Recent Tetanus Shot: up to date Most Recent Pneumonia Vaccination: 2013 Review of Systems Eyes: Blurred Vision - R ENT: Nasal Discharge, Sinus Congestion, Sinus Pain/Tenderness Neurological: Headache Is Patient Immunocompromised?: No All Other Systems Reviewed And Are Negative: Yes Physical Exam Triage Information Reviewed: Yes Appearance: Well-Appearing Vital Signs: Initial Vital Signs Temp 99.3 F 07/20/17 17:47 Pulse 76 07/20/17 17:47 Resp 17 07/20/17 17:47 BP 141/86 07/20/17 17:47 Pulse Ox 100 07/20/17 17:47 Vital Signs Reviewed: Yes Eyes: Positive: Conjunctiva Clear, Other: - PERRL, EOMI. No orbital edema. ENT: Positive: Pharynx normal, TMs normal, Other - L nare congested. R nare occluded and soft tissue mass noted along with swelling to R side of nose. R maxilla is tender. Neck: Positive: Supple, Nontender, No Lymphadenopathy Respiratory: Positive: Lungs clear, Normal breath sounds Cardiovascular: Positive: RRR, No Murmur Abdomen Description: Positive: Nontender, No Organomegaly, Soft Bowel Sounds: Positive: Present Musculoskeletal: Positive: ROM Intact Neurological: Positive: Alert, Other: - CN 2-12 grossly intact. Steady gait. Psychological: Positive: Age Appropriate Behavior Skin Exam: Normal Course/Dx - Course Course Of Treatment: Non toxic. Intranasal mass seen with swelling by R side of nose plus episodic CORBIN and cloudy vision OD. Will transfer to ER for additonal evaluation and CT to exclude invase growth. Report given to Dr Machado at the [facility] ER. Advised of tissue mass R nare, swelling R face and cloudy vison with R anabaptism/orbital headaches thus concern for invasive growth. - Differential Dx - Multi-Symptom Provider Diagnoses: Intranasal soft tissue mass, episodic cloudy vision OD, Episodic R orbital/anabaptism headaches Discharge - Sign-Out/Discharge Documenting (check all that apply): Discharge - Discharge Plan Condition: Stable Disposition: HOME Referrals: Demario Duff MD [Primary Care Provider] - If Needed Additional Instructions: GO DIRECTLY TO THE [facility] AFTER DISCHARGE FROM HERE. REPORT GIVEN TO DR MACHADO. - Billing Disposition and Condition Condition: STABLE Disposition: HOME
== END 2017-07-20 18:30 | disposition home or self-care (01) ==
LOC: UCCORT 15:39
DX: R22.0 Localized swelling, mass and lump, head (principal); H53.9 Unspecified visual disturbance; R51 Headache; Z87.891 Personal history of nicotine dependence; Z88.2 Allergy status to sulfonamides; Z88.8 Allergy status to other drugs, medicaments and biological substances
CPT/HCPCS: 99212; G0463

== ENCOUNTER 2018-07-17 18:38 | Inpatient (IN) | payer MEDICARE, BC ==
[2018-07-17] MEDS ORDERED: Albuterol/Ipratropium NEB.SOL* Albuterol 2.5 MG/Ipratropium 0.5 MG 3 ML INH ONE (19:34)
[2018-07-17] MEDS ORDERED: Piperacillin/Tazobac ADVAN(*) 3.375 GM in NS 0.9% 100 ML* 100 ML IVPB ONE (19:37)
[2018-07-17] MEDS ORDERED: Acetaminophen TAB* 325 MG PO ONE (19:37)
--- NOTE | 2018-07-17 19:37 | ED ---
HPI Febrile Illness - HPI Summary HPI Summary: This patient is a 78 year old F presenting to [facility] accompanied by with a chief complaint of fever (max of 103F) that began earlier today. The patient rates the pain 5/10 in severity. Symptoms aggravated by deep breaths. Symptoms alleviated by nothing. Patient reports SOB, painful skin, and nasal congestion. Patient denies abd pain. Patient states she recently had a double mastectomy for cancer, but denies currently receiving radiation or chemotherapy. - History of Current Complaint Chief Complaint: EDShortnessOfBreath Time Seen by Provider: 07/17/18 19:26 Hx Obtained From: Patient Hx Last Menstrual Period: 48 yrs Onset/Duration: Started Hours Ago, Atraumatic, Still Present Timing: Constant Temperature: 103 F Initial Severity: Moderate Current Severity: Moderate Pain Intensity: 5 Pain Scale Used: 0-10 Numeric Aggravating Factors: Other: - Deep breaths Alleviating Factors: Nothing Associated Signs and Symptoms: Other: - Positive SOB, painful skin, and nasal congestion. Negative abd pain. - Additional Pertinent History Primary Care Physician: JOSH - Allergy/Home Medications Allergies/Adverse Reactions: Allergies Allergy/AdvReac Type Severity Reaction Status Date / Time salicylates Allergy Joint Pain Verified 07/17/18 18:59 Sulfa (Sulfonamide Allergy Joint Pain Verified 07/17/18 18:59 Antibiotics) mercury Allergy Severe Swelling Uncoded 06/20/16 10:03 Of Face,Lips,& Throat ENVIRONMENTAL/SEASONAL Allergy CONGESTION, Uncoded 06/20/16 10:03 ASTHMA PMH/Surg Hx/FS Hx/Imm Hx Previously Healthy: No Endocrine/Hematology History: Reports: 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, NO PROBLEMS SINCE ADULTHOOD Denies: Hx Diabetes, Hx Systemic Lupus Erythematosus Cardiovascular History: Reports: Other Cardiovascular Problems/Disorders Denies: Hx Congestive Heart Failure, Hx Hypertension, Hx Pacemaker/ICD Respiratory History: Reports: Hx Asthma - INHALER, Hx Chronic Obstructive Pulmonary Disease (COPD), Hx Pneumonia GI History: Reports: Other GI Disorders - gastrectomy 2006 FOR ADHESIONS, Menetriers Disease History: Reports: Hx Kidney Infection, Hx Kidney Stones, Other Problems/ Disorders - RIGHT HYDRONEPHROSIS Denies: Hx Renal Disease Musculoskeletal History: Reports: Hx Arthritis Denies: Hx Rheumatoid Arthritis Sensory History: Reports: Hx Cataracts - BEGINNING, Hx Contacts or Glasses, Hx Hearing Aid - BILATERAL, DOES NOT ALWAYS WEAR, Hx Hearing Problem Opthamlomology History: Reports: Hx Cataracts - BEGINNING, Hx Contacts or Glasses Neurological History: Reports: Hx Transient Ischemic Attacks (TIA) Psychiatric History: Denies: Hx Panic Disorder - Cancer History Hx Chemotherapy: No - Surgical History Surgery Procedure, Year, and Place: Stent Rt kidney July 2013 removed, Lt Hip replacement 08/2012, 3 C-sections, Complete Hysterectomy, Adhesions-Colon, Menetrier's Disease-Partial Gastric surgery 1984, right Breast Biopsy-Benign Hx Anesthesia Reactions: Yes - 1960'S CONSTANT CRYING - Immunization History Date of Influenza Vaccine: 02/09 Infectious Disease History: No Infectious Disease History: Denies: Traveled Outside the [place] in Last 30 Days - Family History Known Family History: Positive: Cardiac Disease - Social History Occupation: Retired Lives: With Family Alcohol Use: None Hx Substance Use: No Substance Use Type: Reports: None Hx Tobacco Use: Yes Smoking Status (MU): Former Smoker Length of Time of Smoking/Using Tobacco: OFF AND ON FOR ABOUT 16 YEARS Have You Smoked in the Last Year: No Review of Systems Positive: Fever Positive: Other - Positive nasal congestion Positive: Shortness Of Breath Negative: Abdominal Pain Skin: Other - Positive "painful skin" All Other Systems Reviewed And Are Negative: Yes Physical Exam - Summary Physical Exam Summary: VITAL SIGNS: Reviewed. GENERAL: Patient is a well-developed and nourished female who is lying comfortable in the stretcher. Patient is not in any acute respiratory distress. HEAD AND FACE: No signs of trauma. No ecchymosis, hematomas or skull depressions. No sinus tenderness. EYES: PERRLA, EOMI x 2, No injected conjunctiva, no nystagmus. EARS: Hearing grossly intact. Ear canals and tympanic membranes are within normal limits. MOUTH: Oropharynx within normal limits. NECK: Supple, trachea is midline, no adenopathy, no JVD, no carotid bruit, no c- spine tenderness, neck with full ROM. CHEST: Symmetric, no tenderness at palpation. Bilateral mastectomy scars, they are healing well, no signs of infection LUNGS: bilateral inspiratory expiratory wheezes, bilateral rhonchi CVS: Regular rhythm, tachycardia, S1 and S2 present, no murmurs or gallops appreciated. ABDOMEN: Soft, non-tender. No signs of distention. No rebound no guarding, and no masses palpated. Bowel sounds are normal. EXTREMITIES: FROM in all major joints, no edema, no cyanosis or clubbing. NEURO: Alert and oriented x 3. No acute neurological deficits. Speech is normal and follows commands. SKIN: Dry and warm. Triage Information Reviewed: Yes Vital Signs On Initial Exam: Initial Vitals Temp Pulse Resp BP Pulse Ox 103.0 F 90 26 151/74 93 07/17/18 18:51 07/17/18 18:51 07/17/18 18:51 07/17/18 18:51 07/17/18 18:51 Vital Signs Reviewed: Yes Diagnostics - Vital Signs Vital Signs Temp Pulse Resp BP Pulse Ox 07/17/18 18:51 103.0 F 90 26 151/74 93 - Laboratory Result Diagrams: 07/17/18 19:49 07/17/18 19:49 Lab Statement: Any lab studies that have been ordered have been reviewed, and results considered in the medical decision making process. - Radiology Chest XR Radiology Interpretation Completed By: ED Physician Summary of Radiographic Findings: CXR reveals, per ED physician, lingular infiltrate. - EKG 2034 Cardiac Rate: NL EKG Rhythm: Sinus Rhythm - [address] Segment: Normal Ectopy: None Summary of EKG Findings: An EKG taken at 2034 reveals nml sinus rhythm at 77 BPM with normal axis, normal intervals, and no ischemic changes. Course/Dx - Course Course Of Treatment: This patient is a 78 year old F presenting to [facility] accompanied by with a chief complaint of fever (max of 103F) that began earlier today. Physical Exam Findings: Tachycardia, bilateral inspiratory expiratory wheezes, bilateral rhonchi. Bilateral mastectomy scars, they are healing well, no signs of infection. An EKG taken at 2034 reveals nml sinus rhythm at 77 BPM with normal axis, normal intervals, and no ischemic changes. CXR reveals, per ED physician, lingular infiltrate. Bloodwork obtained. In the ED course the patient was given acetaminophen, duoneb, magnesium dulfate, fluids , solu-medrol, and Zosyn. Consult with Dr. Perez (hospitalist) at 2121. He agrees to admit the patient for further evaluation. The patient is agreeable with this plan. - Diagnoses Provider Diagnoses: Pneumonia, COPD (chronic obstructive pulmonary disease) - Provider Notifications Discussed Care Of Patient With: Barak Cranston Time Discussed With Above Provider: 21:22 Instructed by Provider To: Other - Consult with Dr. Perez (hospitalist) at 2121. He agrees to admit the patient for further evaluation. Discharge - Sign-Out/Discharge Documenting (check all that apply): Patient Departure - Admit to [facility] Patient Received Moderate/Deep Sedation with Procedure: No - Discharge Plan Condition: Stable Disposition: ADMITTED TO [facility] Referrals: Demario Duff MD [Primary Care Provider] - - Attestation Statements Document Initiated by Scribe: Yes Documenting Scribe: Karmen Prieto Provider For Whom Scribe is Documenting (Include Credential): Dr. Bertha Rivear MD Scribe Attestation: I, Karmen Prieto, scribed for Dr. Bertha Rivera MD on 07/17/18 at 2124. Status of Scribe Document: Ready
[2018-07-17 19:58] LABS: ABS Basophils 0.1 10^3/ul (0-0.2); ABS Eosinophils 0 10^3/ul (0-0.6); ABS Lymphocytes 0.6 10^3/ul (1.0-4.8); ABS Monocytes 0.7 10^3/ul (0-0.8); ABS Neutrophils 13.3 10^3/ul (1.5-7.7); ABS Nucleated RBC 0 10^3/ul; Eosinophil % 0.2 %; Hematocrit 40 % (33-41); Hemoglobin 13.1 g/dL (12.0-16.0); Lymphocyte % 4.1 %; Mean Corpuscular HGB Conc 33 g/dL (31-36); Mean Corpuscular Hemoglobin 29 pg (27-31); Mean Corpuscular Volume 89 fL (80-97); Mean Platelet Volume 8.5 fL (7.4-10.4); Nucleated Red Blood Cells % 0; Platelet Count 241 10^3/uL (150-450); Red Blood Count 4.51 10^6 /uL (3.70-4.87); Red Cell Distribution Width 14 % (10.5-15); White Blood Count 14.7 10^3/uL (3.5-10.8)
[2018-07-17 20:05] LABS: Activated Partial Thrombo Time 27.7 seconds (26.0-36.3); INR 0.98 (0.77-1.02)
[2018-07-17 20:13] LABS: Albumin 4.2 g/dL (3.2-5.2); Albumin/Globulin Ratio 1.6 (1-3); BUN/Creatinine Ratio 20.6 (8-20); C Reactive Protein 71.21 mg/L (<8.01); Calcium 9.6 mg/dL (8.6-10.3); EGFR African American 59.9 (>60); EGFR Non-African American 49.5 (>60); Globulin 2.7 g/dL (2-4); Potassium 4.1 mmol/L (3.5-5.0); Total Bilirubin 0.4 mg/dL (0.2-1.0); Total Protein 6.9 g/dL (6.4-8.9)
[2018-07-17 20:14] LABS: Troponin I 0.01 ng/mL (<0.04)
[2018-07-17] MEDS ORDERED: methylPREDNISolone 125 MG* 2 ML VIAL IV ONE (20:15)
[2018-07-17] MEDS ORDERED: Magnesium Sulfate 2 GM IV* 2 GM/50 ML BAG IVPB ONE (20:15)
[2018-07-17] MEDS: NS 0.9% 1000 ML** 2,000 ML IV ONE (20:19)
[2018-07-17] MEDS: Albuterol 2.5 MG/3 ML NEB.SOL* (0.083%) INH SCH ×2 (20:58→22:48)
[2018-07-17 21:19] LABS: Influenza A Molecular NEGATIVE (Negative); Influenza B Molecular NEGATIVE (Negative)
[2018-07-17] MEDS ORDERED: Albuterol 2.5 MG/3 ML NEB.SOL* (0.083%) INH PRN (22:11)
[2018-07-17] MEDS ORDERED: Acetaminophen TAB* 325 MG PO PRN (22:11)
[2018-07-17] MEDS ORDERED: Albuterol/Ipratropium NEB.SOL* Albuterol 2.5 MG/Ipratropium 0.5 MG 3 ML INH PRN (22:16)
--- NOTE | 2018-07-17 22:39 | ADMNOTE ---
Subjective Date of Service: 07/17/18 Interval History: HISTORY AND PHYSICAL PCP: [facility]: fever HPI: Patient is a 78 year old woman with history of COPD who developed 5/10 chest pain and fever to 103 at home today. She has been feeling well up until today, with some dizziness off and on for 2 weeks. Today she felt she was freezing. She has been short of breath, wheezing, requiring increased use of nebulizer. She also had a bilateral mastectomy 6 weeks ago. No chemo or radiation is planned. 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[place], Quit tobacco 1982, no alcohol/drugs Past Medical History: Findings - COPD, hyperlipidemia, breast cancer (2 different types,) Menetrier's disease PSH: bilateral mastectomy X3, hysterectomy, Review of Systems - Measurements Intake and Output: Intake and Output Last 24 Hours 07/15/18 07/16/18 07/17/18 07/18/18 06:59 06:59 06:59 06:59 Intake Total 1050 Balance 1050 Intake: IV Fluids 1050 - Review of Systems Constitutional Symptoms: Positive: Weakness, Fever Dermatology: Positive: Normal HEENT: Positive: Sinus Problem Eyes: Positive: Double Vision Thyroid: Positive: Normal Pulmonary: Positive: Cough, Wheezing, Shortness of Breath Cardiology: Positive: Normal Gastroenterology: Positive: Normal Genital - Urinary: Positive: Normal Genitourinay - Female: Positive: Menopause Endocrinology: Positive: Normal Neurology: Positive: Normal Psychiatry: Positive: Normal Objective Active Medications: Home Medications: Acetaminophen (Tylenol Tab*) 650 mg PO Q4H PRN PRN Reason: FEVER/HEADACHE Albuterol/Ipratropium (Duoneb (Albuterol 2.5 Mg/Ipratropium 0.5 Mg)) 1 neb INH Q4H PRN PRN Reason: SHORTNESS OF BREATH Clopidogrel Bisulfate (Plavix Tab*) 75 mg PO DAILY [facility] Montelukast Sodium (Singulair Tab*) 10 mg PO BEDTIME [facility]VA Fluticasone/Salmeterol (Advair Diskus 250-50*) 1 puff INH BID ELVA Simvastatin (Zocor (Nf)) 40 mg PO DAILY [facility]VA Theophylline (Lavon Dur*) 200 mg PO DAILY LEVA Vital Signs - 8 hr 07/17/18 07/17/18 07/17/18 18:51 19:24 19:25 Temperature 39.4 C Pulse Rate 90 92 88 Respiratory 26 Rate Blood Pressure 151/74 157/78 (mmHg) O2 Sat by Pulse 93 96 96 Oximetry 07/17/18 07/17/18 07/17/18 19:53 20:00 20:23 Temperature Pulse Rate 96 88 80 Respiratory Rate Blood Pressure 144/84 145/76 (mmHg) O2 Sat by Pulse 96 96 97 Oximetry Oxygen Devices in Use Now: Nasal Cannula Appearance: sleeping, easily aroused, no distress Eyes: No Scleral Icterus Ears/Nose/Mouth/Throat: NL Teeth, Lips, Gums Neck: NL Appearance and Movements; NL JVP Respiratory: Symmetrical Chest Expansion and Respiratory Effort, - - ronchi and rales at bases bilat Cardiovascular: NL Sounds; No Murmurs; No JVD Abdominal: NL Sounds; No Tenderness; No Distention Lymphatic: No Cervical Adenopathy Extremities: No Edema Skin: No Rash or Ulcers Neurological: Alert and Oriented x 3 Lines/Tubes/Other Access: Clean, Dry and Intact Peripheral IV Nutrition: Taking PO's Result Diagrams: 07/18/18 05:55 07/18/18 05:55 Additional Lab and Data: Laboratory Tests 07/17/18 07/17/18 07/17/18 19:49 19:49 19:49 INR (Anticoag Therapy) 0.98 APTT 27.7 Lactic Acid 1.4 AST 17 ALT 12 C-Reactive Protein 71.21 H Albumin 4.2 Influenza A (Rapid) Influenza B (Rapid) 07/17/18 21:06 INR (Anticoag Therapy) APTT Lactic Acid AST ALT C-Reactive Protein Albumin Influenza A (Rapid) Negative Influenza B (Rapid) Negative Microbiology and Other Data: Microbiology 07/17/18 20:15 Influenza Types A,B Antigen - Final Nasopharyngeal Specimen received for Influenza A/B Molecular testing Diagnostic Imaging: CXR: lingular infiltrate EKG Data: NSR, LAFB, LVH Assess/Plan/Problems-Billing Assessment: 78 year old woman with community acquired pneumonia and COPD exacerbation - Patient Problems (1) Pneumonia Current Visit: Yes Status: Acute Priority: High Code(s): J18.9 - PNEUMONIA , UNSPECIFIED ORGANISM SNOMED Code(s): 052249753 Comment: -Lingular infiltrate seen on CXR -Was started on Zosyn in ER, this will be continued for community acquired pneumonia (2) COPD exacerbation Current Visit: Yes Status: Acute Priority: Medium Code(s): J44.1 - CHRONIC OBSTRUCTIVE PULMONARY DISEASE W (ACUTE) EXACERBATION SNOMED Code(s): 449370115 Comment: -Also has COPD exacerbation. Will give oral steroids. -Continue nebulizers prn and home inhalers. (3) DVT prophylaxis Current Visit: No Status: Acute Priority: Low Onset Date: 05/08/14 Code( s): NLP2164 - SNOMED Code(s): 418591936 Comment: -moderate risk -SC lovenox Status and Disposition: inpatient
[2018-07-17] MEDS ORDERED: Zosyn per Pharmacy* NOTE FOLLOW UP SCH (23:00)
[2018-07-18] MEDS: Enoxaparin(*) 40 MG/0.4 ML SYR SUBCUT SCH ×2 (00:30→21:09)
[2018-07-18] MEDS: Montelukast Sodium TAB* 10 MG PO SCH ×2 (00:31→21:08)
[2018-07-18] MEDS: ZOSYN 3.375 GM Q8H per EXTENDED INFUSION IVPB SCH ×4 (00:35→09:13)
[2018-07-18 06:05] LABS: ABS Basophils 0 10^3/ul (0-0.2); ABS Eosinophils 0 10^3/ul (0-0.6); ABS Lymphocytes 0.4 10^3/ul (1.0-4.8); ABS Monocytes 0.3 10^3/ul (0-0.8); ABS Neutrophils 17.4 10^3/ul (1.5-7.7); ABS Nucleated RBC 0 10^3/ul; Eosinophil % 0 %; Hematocrit 34 % (33-41); Lymphocyte % 2.1 %; Mean Corpuscular HGB Conc 33 g/dL (31-36); Mean Corpuscular Hemoglobin 29 pg (27-31); Mean Corpuscular Volume 90 fL (80-97); Mean Platelet Volume 8.6 fL (7.4-10.4); Nucleated Red Blood Cells % 0; Platelet Count 191 10^3/uL (150-450); Red Blood Count 3.77 10^6 /uL (3.70-4.87); Red Cell Distribution Width 14 % (10.5-15); White Blood Count 18.1 10^3/uL (3.5-10.8)
[2018-07-18 06:20] LABS: Anion Gap 9 mmol/L (2-11); BUN/Creatinine Ratio 16.1 (8-20); Blood Urea Nitrogen 18 mg/dL (6-24); CO2 Carbon Dioxide 18 mmol/L (22-32); Calcium 8.7 mg/dL (8.6-10.3); Chloride 109 mmol/L (101-111); EGFR African American 56.8 (>60); EGFR Non-African American 46.9 (>60); Glucose 236 mg/dL (70-100); Magnesium 2.4 mg/dL (1.9-2.7); Potassium 3.9 mmol/L (3.5-5.0); Sodium 136 mmol/L (135-145)
[2018-07-18 06:21] LABS: Theophylline < 2.7 mcg/mL (10-20.0)
[2018-07-18] MEDS: Mometasone/Formoter 200/5 MDI INH SCH ×2 (08:06→19:42)
[2018-07-18] MEDS ORDERED: predniSONE TAB* 50 MG PO SCH (09:00)
[2018-07-18] MEDS: Clopidogrel TAB* 75 MG PO SCH (09:11)
[2018-07-18] MEDS: Atorvastatin* 20 MG TAB PO SCH (09:12)
[2018-07-18] MEDS: THEOPHYLLINE 200 MG PO SCH ×2 (09:19→10:16)
--- NOTE | 2018-07-18 13:04 | PN ---
Subjective Date of Service: 07/18/18 Interval History: Reports she feels better than when she came in but continues to have wheezing, harsh cough, sputum production. Denies SOB. No CP. Denies any fever/chills today. Reports good appetite. 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 [place], Quit tobacco 1982, no alcohol/drugs Past Medical History: Findings - COPD, hyperlipidemia, breast cancer (2 different types,) Menetrier's disease PSH: bilateral mastectomy X3, hysterectomy, hostory of distant tobacco abuse for 20 years Objective Active Medications: Acetaminophen (Tylenol Tab*) 650 mg PO Q4H PRN PRN Reason: FEVER/HEADACHE Last Admin: 07/18/18 09:59 Dose: 325 mg Albuterol (Ventolin 2.5 Mg/3 Ml Neb.Elaine*) 2.5 mg INH [id number] AWAKE PRN PRN Reason: SOB/WHEEZING Albuterol/Ipratropium (Duoneb (Albuterol 2.5 Mg/Ipratropium 0.5 Mg)) 1 neb INH Q4H PRN PRN Reason: SHORTNESS OF BREATH Atorvastatin Calcium (Lipitor*) 20 mg PO DAILY [facility] Last Admin: 07/18/18 09:12 Dose: 20 mg Clopidogrel Bisulfate (Plavix Tab*) 75 mg PO DAILY [facility] Last Admin: 07/18/18 09:11 Dose: 75 mg Enoxaparin Sodium (Lovenox(*)) 40 mg SUBCUT Q24H [facility] Last Admin: 07/18/18 00:30 Dose: 40 mg Piperacillin Sod/Tazobactam (Sod 3.375 gm/ Sodium Chloride) 100 mls @ 25 mls/ hr IVPB Q8H [facility] Last Admin: 07/18/18 09:13 Dose: 25 mls/hr Mometasone Furoate/Formoterol Fumar (Dulera 200/5 Mdi*) 2 puff INH BID [facility] Last Admin: 07/18/18 08:06 Dose: Not Given Montelukast Sodium (Singulair Tab*) 10 mg PO BEDTIME [facility] Last Admin: 07/18/18 00:31 Dose: 10 mg Pharmacy Consult (Zosyn Per Pharmacy*) 1 note FOLLOW UP .ZOSYN PER PHARMACY [facility] Prednisone (Deltasone Tab*) 50 mg PO DAILY [facility] Last Admin: 07/18/18 09:12 Dose: 50 mg Theophylline (Lavon Dur*) 200 mg PO DAILY [facility] Last Admin: 07/18/18 10:16 Dose: 200 mg Vital Signs - 8 hr 07/18/18 07/18/18 07/18/18 07:32 07:37 09:40 Temperature 97.0 F 97 F Pulse Rate 68 69 Respiratory 16 16 16 Rate Blood Pressure 130/60 130/60 (mmHg) O2 Sat by Pulse 100 100 Oximetry 07/18/18 12:30 Temperature Pulse Rate 63 Respiratory 16 Rate Blood Pressure 140/61 (mmHg) O2 Sat by Pulse 100 Oximetry Oxygen Devices in Use Now: Nasal Cannula Appearance: 78 yo femamel A+O x3 in NAD - very talkative, friendly Ears/Nose/Mouth/Throat: NL Teeth, Lips, Gums, Clear Oropharnyx, Mucous Membranes Moist Neck: NL Appearance and Movements; NL JVP Respiratory: Symmetrical Chest Expansion and Respiratory Effort, - - course rhonchi throughout, exp wheezes upper lobes b/l; resp easy Cardiovascular: NL Sounds; No Murmurs; No JVD, RRR, No Edema Abdominal: NL Sounds; No Tenderness; No Distention Extremities: No Edema, No Clubbing, Cyanosis Skin: No Rash or Ulcers, No Nodules or Sclerosis Neurological: Alert and Oriented x 3, NL Sensation, NL Gait, NL Muscle Strength and Tone Lines/Tubes/Other Access: Clean, Dry and Intact Peripheral IV Nutrition: Taking PO's Result Diagrams: 07/18/18 05:55 07/18/18 05:55 Additional Lab and Data: Laboratory Tests 07/17/18 07/17/18 07/17/18 19:49 19:49 19:49 INR (Anticoag Therapy) 0.98 APTT 27.7 Lactic Acid 1.4 AST 17 ALT 12 C-Reactive Protein 71.21 H Albumin 4.2 Influenza A (Rapid) Influenza B (Rapid) 07/17/18 21:06 INR (Anticoag Therapy) APTT Lactic Acid AST ALT C-Reactive Protein Albumin Influenza A (Rapid) Negative Influenza B (Rapid) Negative Microbiology and Other Data: Microbiology 07/17/18 20:15 Influenza Types A,B Antigen - Final Nasopharyngeal Specimen received for Influenza A/B Molecular testing Diagnostic Imaging: CXR: lingular infiltrate EKG Data: NSR, LAFB, LVH Assess/Plan/Problems-Billing Assessment: 78 year old woman with community acquired pneumonia and COPD exacerbation - Patient Problems (1) Pneumonia Comment: - improving. Afebrile this am. feeling better -Lingular infiltrate seen on CXR -DC zoysn - community aquired pneumonia - started ceftriaxone and azithro - blood cx pending - ordered sputum cx and urine antigens for s. pneum and legionella - supplemental oxygen prn - currently on 2L maintaining O2 sats 100% - plan to attempt to titrate today (2) COPD exacerbation Comment: -Also has COPD exacerbation. continue oral steroids - decrease to 40 mg daily tomorrow -Continue nebulizers prn and home inhalers. - flutter valve q4hr wa (3) Chronic kidney disease Comment: - appears to be at baseline (4) DVT prophylaxis Comment: -moderate risk -SC lovenox Status and Disposition: inpatient for PNA/COPD exacerbation. Home when medically stable
[2018-07-18 14:52] LABS: Vitamin D Total 25(OH) 64.3 ng/mL (20-50)
[2018-07-18] MEDS ORDERED: cefTRIAXone(*) 1 GM in NS 0.9% 50 ML* 50 ML IVPB SCH (16:00)
[2018-07-18] MEDS ORDERED: Azithromycin IV(*) 500 MG in NS 0.9% 250 ML* 250 ML IVPB SCH (18:00)
[2018-07-18] MEDS: Ascorbic Acid TAB* 500 MG PO SCH (21:08)
[2018-07-19 05:55] LABS: ABS Basophils 0 10^3/ul (0-0.2); ABS Eosinophils 0 10^3/ul (0-0.6); ABS Lymphocytes 1.5 10^3/ul (1.0-4.8); ABS Monocytes 0.8 10^3/ul (0-0.8); ABS Neutrophils 14.8 10^3/ul (1.5-7.7); ABS Nucleated RBC 0 10^3/ul; Eosinophil % 0.1 %; Hematocrit 31 % (33-41); Hemoglobin 10.3 g/dL (12.0-16.0); Lymphocyte % 8.6 %; Mean Corpuscular HGB Conc 33 g/dL (31-36); Mean Corpuscular Hemoglobin 29 pg (27-31); Mean Corpuscular Volume 89 fL (80-97); Nucleated Red Blood Cells % 0; Platelet Count 192 10^3/uL (150-450); Red Blood Count 3.52 10^6 /uL (3.70-4.87); Red Cell Distribution Width 15 % (10.5-15); White Blood Count 17.1 10^3/uL (3.5-10.8)
[2018-07-19 06:16] LABS: BUN/Creatinine Ratio 22.2 (8-20); Calcium 8.9 mg/dL (8.6-10.3); EGFR African American 73.1 (>60); EGFR Non-African American 60.4 (>60); Potassium 4.1 mmol/L (3.5-5.0)
[2018-07-19] MEDS: Mometasone/Formoter 200/5 MDI INH SCH (07:51)
[2018-07-19] MEDS ORDERED: amLODIPine TAB* 5 MG PO SCH (09:00)
[2018-07-19] MEDS ORDERED: predniSONE TAB* 20 MG PO SCH (09:00)
[2018-07-19] MEDS: THEOPHYLLINE 200 MG PO SCH (09:06)
[2018-07-19] MEDS: Atorvastatin* 20 MG TAB PO SCH (09:06)
[2018-07-19] MEDS: Clopidogrel TAB* 75 MG PO SCH (09:06)
[2018-07-19] MEDS: Ascorbic Acid TAB* 500 MG PO SCH (09:07)
--- NOTE | 2018-07-19 11:22 | DCNOTE ---
Subjective Date of Service: 07/19/18 Interval History: patient reports she feels much better today and would like to go home. She continues to have a harsh cough with some sputum but reports this is not much. She denies wheezing or sob. No fevers or chills Denies N/V/D. 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 [place], Quit tobacco 1982, no alcohol/drugs Past Medical History: Findings - COPD, hyperlipidemia, breast cancer (2 different types,) Menetrier's disease PSH: bilateral mastectomy X3, hysterectomy, hostory of distant tobacco abuse for 20 years Objective Active Medications: Acetaminophen (Tylenol Tab*) 650 mg PO Q4H PRN PRN Reason: FEVER/HEADACHE Last Admin: 07/18/18 09:59 Dose: 325 mg Albuterol (Ventolin 2.5 Mg/3 Ml Neb.Elaine*) 2.5 mg INH [id number] AWAKE PRN PRN Reason: SOB/WHEEZING Albuterol/Ipratropium (Duoneb (Albuterol 2.5 Mg/Ipratropium 0.5 Mg)) 1 neb INH Q4H PRN PRN Reason: SHORTNESS OF BREATH Amlodipine Besylate (Norvasc Tab*) 5 mg PO DAILY [facility] Last Admin: 07/19/18 09:06 Dose: 5 mg Ascorbic Acid (Vitamin C Tab*) 500 mg PO BID [facility] Last Admin: 07/19/18 09:07 Dose: 500 mg Atorvastatin Calcium (Lipitor*) 20 mg PO DAILY [facility] Last Admin: 07/19/18 09:06 Dose: 20 mg Clopidogrel Bisulfate (Plavix Tab*) 75 mg PO DAILY [facility] Last Admin: 07/19/18 09:06 Dose: 75 mg Enoxaparin Sodium (Lovenox(*)) 40 mg SUBCUT Q24H [facility] Last Admin: 07/18/18 21:09 Dose: 40 mg Ceftriaxone Sodium 1 gm/ (Sodium Chloride) 50 mls @ 200 mls/hr IVPB Q24H [facility] Last Admin: 07/18/18 16:04 Dose: 200 mls/hr Azithromycin 500 mg/ Sodium (Chloride) 250 mls @ 250 mls/hr IVPB Q24H [facility] Last Admin: 07/18/18 17:34 Dose: 250 mls/hr Mometasone Furoate/Formoterol Fumar (Dulera 200/5 Mdi*) 2 puff INH BID [facility] Last Admin: 07/19/18 07:51 Dose: 2 puff Montelukast Sodium (Singulair Tab*) 10 mg PO BEDTIME [facility] Last Admin: 07/18/18 21:08 Dose: 10 mg Prednisone (Deltasone Tab*) 40 mg PO DAILY [facility] Last Admin: 07/19/18 09:07 Dose: 40 mg Theophylline (Lavon Dur*) 200 mg PO DAILY [facility] Last Admin: 07/19/18 09:06 Dose: 200 mg Vital Signs - 8 hr 07/19/18 07/19/18 07/19/18 03:33 07:21 08:56 Temperature 97.8 F 98.4 F Pulse Rate 75 68 Respiratory 16 20 Rate Blood Pressure 163/94 165/80 (mmHg) O2 Sat by Pulse 100 100 97 Oximetry Oxygen Devices in Use Now: None Appearance: well developed elderly female A+O x3 in NAD Eyes: No Scleral Icterus, PERRLA Ears/Nose/Mouth/Throat: NL Teeth, Lips, Gums, Mucous Membranes Moist Neck: NL Appearance and Movements; NL JVP Respiratory: Symmetrical Chest Expansion and Respiratory Effort, - - scattered course rhonchi - mild, good aeration throughout Cardiovascular: NL Sounds; No Murmurs; No JVD, RRR, No Edema Abdominal: NL Sounds; No Tenderness; No Distention Extremities: No Edema, No Clubbing, Cyanosis Skin: No Rash or Ulcers, No Nodules or Sclerosis Neurological: Alert and Oriented x 3, NL Sensation, NL Gait, NL Muscle Strength and Tone Lines/Tubes/Other Access: Clean, Dry and Intact Peripheral IV Nutrition: Taking PO's Result Diagrams: 07/19/18 05:32 07/19/18 05:32 Additional Lab and Data: Laboratory Tests 07/17/18 07/17/18 07/17/18 19:49 19:49 19:49 INR (Anticoag Therapy) 0.98 APTT 27.7 Lactic Acid 1.4 AST 17 ALT 12 C-Reactive Protein 71.21 H Albumin 4.2 Influenza A (Rapid) Influenza B (Rapid) 07/17/18 21:06 INR (Anticoag Therapy) APTT Lactic Acid AST ALT C-Reactive Protein Albumin Influenza A (Rapid) Negative Influenza B (Rapid) Negative Microbiology and Other Data: Microbiology 07/17/18 20:15 Influenza Types A,B Antigen - Final Nasopharyngeal Specimen received for Influenza A/B Molecular testing Diagnostic Imaging: CXR: lingular infiltrate EKG Data: NSR, LAFB, LVH Assess/Plan/Problems-Billing Assessment: 78 year old woman with community acquired pneumonia and COPD exacerbation - Patient Problems (1) Pneumonia Comment: - Great improvement since admission. Afebrile. Leukocytosis -Lingular infiltrate seen on CXR - community aquired pneumonia - ceftriaxone and azithro - switch to PO meds on DC - blood cx NTD - urine antigens for s. pneum and legionella negative - Oxygen weaned off - amulating maintaing O2 sats >96% (2) COPD exacerbation Comment: -Improving. continue oral steroids - Prednisone course on DC -Continue nebulizers prn and home inhalers. - flutter valve q4hr wa (3) DVT prophylaxis Comment: -moderate risk -SC lovenox (4) Acute kidney failure Comment: secondary to dehydration - resolved with IVFs Status and Disposition: inpatient for PNA/COPD exacerbation. Home today
[2018-07-19 11:40] VITALS: BP 155/73
--- NOTE | 2018-07-20 00:01 | DS ---
CC: Dr. Duff* DISCHARGE SUMMARY: DATE OF ADMISSION: 07/17/18 DATE OF DISCHARGE: 07/19/18 PROVIDER: Stella Gunn NP. ATTENDING PHYSICIAN: Dr. Kendall* (report dictated by Stella Gunn NP). PRIMARY CARE PROVIDER: Dr. Duff. DISCHARGE DIAGNOSES: 1. Community-acquired pneumonia. 2. Chronic obstructive pulmonary disease exacerbation, mild. 3. Acute renal injury, suspect secondary to dehydration. SECONDARY DIAGNOSES: 1. Hyperlipidemia. 2. History of breast cancer (2 different types), status post bilateral mastectomy 6 weeks ago. 3. Meniere disease. HISTORY OF PRESENT ILLNESS AND HOSPITAL COURSE: Please see history and physical by Dr. Barak Perez for full admission details. In summary, this is a 78-year-old female who presented to the emergency department on 07/17/18 after she developed cough, fever of 103, and chest pain. In the emergency department, she was found to have leukocytosis of 14.7 and a fever of 103. Chest x-ray showed small right basilar infiltrate. Hospital Medicine admitted the patient to the medical unit for IV fluids and IV antibiotics. The patient was also noted to have acute kidney injury, which resolved with IV fluids. The patient also was found to have a mild COPD exacerbation with expiratory wheezing and sputum production. She was given azithromycin and ceftriaxone along with IV Solu-Medrol. Please note the patient was negative for influenza A and B. Initially, the patient required oxygen supplementation with 2 L nasal cannula to maintain sats above 94%. However, this was weaned off approximately 24 hours ago. She has been ambulating around the hallways with a steady gait and feels much better today, maintaining O2 sats with exertion. The patient reports that she would like to be discharged to home, reporting she feels much better today. Continues to have an occasional harsh cough and reports her sputum production is much less than it was yesterday. Denies fever , chills, body aches. Reports her appetite has returned. No nausea, vomiting, or diarrhea. She was recommended to continue Duoneb at home 20 3 x a day for the next several days. Discharge plan was discussed with the patient and her . DISCHARGE MEDICATIONS: 1. Lavon-Dur 200 mg p.o. daily. 2. Zocor 40 mg p.o. daily. 3. Singulair 10 mg p.o. at bedtime. 4. Advair 250/50 one puff INH b.i.d. 5. Plavix 75 mg p.o. daily. 6. DuoNeb 2.5 mg/0.5 mg 1 neb INH q.4 hours p.r.n. 7. Prednisone 40 mg p.o. daily x4 days, then stop. 8. Vantin 200 mg p.o. b.i.d. x5 days. 9. Azithromycin 200 mg p.o. daily x3 days. DISCHARGE PLAN: 1. Follow up with Dr. Duff within 3 to 5 days. 2. Instructed the patient to increase her home nebulizers to 2 to 3 times a day for the next several days. 3. The patient is stable for discharge to home. TIME SPENT: Approximately 60 minutes were spent on this discharge. STELLA GUNN, DOMESTIC HELPER [id number]/[facility] #: [id number] SARITA
== END 2018-07-19 12:30 | disposition home or self-care (01) | DRG 190 ==
LOC: ED 18:38 → MED 22:09
PROVIDERS: ADMIT Internal Medicine; ATTEND Internal Medicine
DX: J44.1 Chronic obstructive pulmonary disease with (acute) exacerbation (principal); J18.9 Pneumonia, unspecified organism; N17.9 Acute kidney failure, unspecified; J44.0 Chronic obstructive pulmonary disease with (acute) lower respiratory infection; M19.90 Unspecified osteoarthritis, unspecified site; H26.9 Unspecified cataract; J30.2 Other seasonal allergic rhinitis; R00.0 Tachycardia, unspecified; E78.5 Hyperlipidemia, unspecified; N18.9 Chronic kidney disease, unspecified; E86.0 Dehydration; Z96.642 Presence of left artificial hip joint; H81.09 Meniere's disease, unspecified ear; Z87.01 Personal history of pneumonia (recurrent); Z90.3 Acquired absence of stomach [part of]; Z87.442 Personal history of urinary calculi; Z86.73 Personal history of transient ischemic attack (TIA), and cerebral infarction without residual deficits; Z90.710 Acquired absence of both cervix and uterus; Z82.49 Family history of ischemic heart disease and other diseases of the circulatory system; Z87.891 Personal history of nicotine dependence; Z80.1 Family history of malignant neoplasm of trachea, bronchus and lung; Z80.3 Family history of malignant neoplasm of breast; Z85.3 Personal history of malignant neoplasm of breast; Z90.13 Acquired absence of bilateral breasts and nipples; Z88.8 Allergy status to other drugs, medicaments and biological substances; Z88.2 Allergy status to sulfonamides; Z83.1 Family history of other infectious and parasitic diseases; Z79.02 Long term (current) use of antithrombotics/antiplatelets; Z97.4 Presence of external hearing-aid
CPT/HCPCS: 36415; 71045; 80048; 80053; 80198; 82306; 83605; 83735; 84484; 85025; 85610; 85730; 86140; 87040; 87070; 87077; 87205; 87899; 93005; 94640; 99285; A9270-GY; J0456; J0696; J1650; J2543; J2930; J3475; J7512

== ENCOUNTER 2019-02-01 08:52 | Day surgery (SDC) | payer MEDICARE, BC ==
[~2019-02-01 08:52] MED LIST: Buffered Lidocaine 1% SYRIN* 1 ML/SYRINGE INTRADERM ONE
[2019-02-01] MEDS ORDERED: Cyclopentolate 1% OPTH.SOL* 2 ML BTL ONE (11:21)
[2019-02-01] MEDS ORDERED: Ketorolac 0.5% OPHTH (NF) 0.5 % 5 ML BTL ONE (11:21)
[2019-02-01] MEDS ORDERED: Phenylephrine OPHTH SOL 2.5%* 2 ML ONE (11:21)
[2019-02-01] MEDS ORDERED: acetaZOLAMIDE TAB* 250 MG ONE (11:21)
[2019-02-01] MEDS ORDERED: Neomycin/Polymy/Dex OPTH.SUSP* MAXITROL 0.1% 5 ML ONE (11:21)
[2019-02-01] MEDS ORDERED: Povidone Iodine 5% OPTH* 30 ML BTL ONE (11:21)
[2019-02-01] MEDS ORDERED: Lidocaine 2% w/ EPI 1:200,000* 20 ML SDV VIAL ONE (11:21)
[2019-02-01] MEDS ORDERED: Lidocaine 1% MPF ** 5 ML VIAL ONE (11:21)
[2019-02-01] MEDS ORDERED: Proparacaine 0.5% OPHTH.SOL* 15 ML BTL ONE (11:21)
[2019-02-01] MEDS ORDERED: Propofol* 10 MG/ML 20 ML BTL ONE (12:57)
[2019-02-01] MEDS ORDERED: Lidocaine 2% PF * 5 ML VIAL ONE (12:57)
[2019-02-01 14:06] VITALS: BP 134/81
--- NOTE | 2019-02-01 14:58 | OP ---
DATE OF OPERATION: 02/01/2019 - [facility] DATE OF : 1940. SURGEON: Demario Recinos M.D. PREOPERATIVE DIAGNOSIS: Cataract right eye. POSTOPERATIVE DIAGNOSIS: Cataract right eye. OPERATIVE PROCEDURE: Extracapsular cataract extraction with intraocular lens implant right eye. DESCRIPTION OF PROCEDURE: The patient was brought to the operating room after being given 1/2% Alcaine with epinephrine drops in the preoperative area. The eye was prepped and draped in the usual sterile fashion. Sterile drape and eyelid speculum were placed. Again, topical 1/2% Alcaine with epinephrine was given. A paracentesis incision was made at the 9 o'clock position with the No.75 blade. Clear cornea incision 2.2 x 2.2-mm was created at the 12 o'clock position starting at the anterior limbus using the 2.2-mm keratome. The anterior chamber was irrigated with 0.4 mL of 1% non-preservative intracameral lidocaine and filled with DisCoVisc. A capsulorrhexis was completed using the cystotome and the Utrata forceps. Hydrodissection was performed with balanced salt solution. The lens nucleus was removed with the Phacoemulsification handpiece without incident. Cortex was removed with the irrigation-aspiration handpiece. The capsular bag was re-inflated using DisCoVisc and an [id number] 20 implant was inserted with the shooter. The irrigation-aspiration handpiece was used to remove all residual DisCoVisc. The eye was refilled with balanced salt solution and the wound checked and found to be watertight. Topical Maxitrol drops were given. [id number]/[facility] #: [id number] [facility]
== END 2019-02-01 13:35 | disposition home or self-care (01) ==
LOC: OREAST 08:52
PROVIDERS: ATTEND Specialist
DX: H25.811 Combined forms of age-related cataract, right eye (principal); H50.011 Monocular esotropia, right eye; J44.9 Chronic obstructive pulmonary disease, unspecified; E78.00 Pure hypercholesterolemia, unspecified; Z85.3 Personal history of malignant neoplasm of breast; Z86.73 Personal history of transient ischemic attack (TIA), and cerebral infarction without residual deficits
CPT/HCPCS: A9270-GY; J2704; V2632

== ENCOUNTER 2019-02-08 08:52 | Day surgery (SDC) | payer MEDICARE, BC ==
[2019-02-08] MEDS ORDERED: acetaZOLAMIDE TAB* 250 MG ONE (11:02)
[2019-02-08] MEDS ORDERED: Neomycin/Polymy/Dex OPTH.SUSP* MAXITROL 0.1% 5 ML ONE (11:02)
[2019-02-08] MEDS ORDERED: Lidocaine 2% w/ EPI 1:200,000* 20 ML SDV VIAL ONE (11:02)
[2019-02-08] MEDS ORDERED: Proparacaine 0.5% OPHTH.SOL* 15 ML BTL ONE (11:02)
[2019-02-08] MEDS ORDERED: Phenylephrine OPHTH SOL 2.5%* 2 ML ONE (11:02)
[2019-02-08] MEDS ORDERED: Ketorolac 0.5% OPHTH (NF) 0.5 % 5 ML BTL ONE (11:02)
[2019-02-08] MEDS ORDERED: Povidone Iodine 5% OPTH* 30 ML BTL ONE (11:02)
[2019-02-08] MEDS ORDERED: Lidocaine 1% MPF ** 5 ML VIAL ONE (11:02)
[2019-02-08] MEDS ORDERED: Cyclopentolate 1% OPTH.SOL* 2 ML BTL ONE (11:02)
[2019-02-08 12:58] VITALS: BP 134/64
--- NOTE | 2019-02-08 16:10 | OP ---
DATE OF OPERATION: 02/08/19 [facility] DATE OF : [birth year] SURGEON: Demario Recinos M.D. PREOPERATIVE DIAGNOSIS: Cataract, left eye. POSTOPERATIVE DIAGNOSIS: Cataract, left eye. OPERATIVE PROCEDURE: Extracapsular cataract extraction with intraocular lens implant, left eye. DESCRIPTION OF PROCEDURE: The patient was brought to the operating room after being given 1/2% Alcaine with epinephrine drops in the preoperative area. The eye was prepped and draped in the usual sterile fashion. Sterile drape and eyelid speculum were placed. Again, topical 1/2% Alcaine with epinephrine was given. A paracentesis incision was made at the 3 o'clock position with the No.75 blade. Clear cornea incision 2.2 x 2.2-mm was created at the 6 o'clock position starting at the anterior limbus using the 2.2-mm keratome. The anterior chamber was irrigated with 0.4 mL of 1% non-preservative intracameral lidocaine and filled with DisCoVisc. A capsulorrhexis was completed using the cystotome and the Utrata forceps. Hydrodissection was performed with balanced salt solution. The lens nucleus was removed with the Phacoemulsification handpiece without incident. Cortex was removed with the irrigation-aspiration handpiece. The capsular bag was re-inflated using DisCoVisc and an SN60WF 19.5 implant was inserted with the shooter. The irrigation-aspiration handpiece was used to remove all residual DisCoVisc. The eye was refilled with balanced salt solution and the wound checked and found to be watertight. Topical Maxitrol drops were given. [id number]/[facility] #: [id number] [facility]
== END 2019-02-08 11:55 | disposition home or self-care (01) ==
LOC: OREAST 08:52
PROVIDERS: ATTEND Specialist
DX: H25.812 Combined forms of age-related cataract, left eye (principal); H50.011 Monocular esotropia, right eye; J44.9 Chronic obstructive pulmonary disease, unspecified; E78.00 Pure hypercholesterolemia, unspecified; Z85.3 Personal history of malignant neoplasm of breast
CPT/HCPCS: A9270-GY; V2632

== ENCOUNTER 2019-03-29 09:53 | Emergency (ER) | payer MEDICARE, BC ==
--- OUTSIDE RECORDS SUMMARY | 2019-03-29 10:10 | XMS REPORT | Continuity of Care Document ---
:1940 External Reference #:[id number] Author Name Vilma Mobley O.D. Address [address] [place] [address] Care Team Providers Name Role Phone Demario Duff M.D. - Internal Care Team Information [employer] [phone] Medicine Josh Early M.D. - Care Team Information [employer] [phone] Gastroenterology Problems Active Problems Provider Date Chronic obstructive lung disease Onset: Hypercholesterolemia Onset: Monocular esotropia Demario Recinos M.D. Onset: 09/03/2017 Combined form of senile cataract Demario Recinos M.D. Onset: 09/03/2017 Malignant neoplasm of female breast Onset: Note: 04/2018 Presence of intraocular lens Demario Recinos M.D. Onset: 02/09/2019 Social History Type Date Description Comments Sex Unknown ETOH Use Denies alcohol use Tobacco Use Start: Unknown Patient has never smoked Recreational Drug Use Denies Drug Use Smoking Status Reviewed: 02/24/19 Patient has never smoked Allergies, Adverse Reactions, Alerts Active Allergies Reaction Severity Comments Date Sulfa Antibiotics 09/03/2017 Salicylates 09/15/2013 Mercury 02/24/2019 Inactive Allergies NKDA 01/24/2019 Medications Active Medications SIG Qnty Indications Ordering Provider Date Fish Oil 1 by mouth every Demario Recinos, 01/24/2019 1000mg Capsules day M.D. Artificial Tears Demario Recinos, 09/01/2017 0.2-0.2-1% M.D. Solution Simvastatin Demario Duff 06/26/2015 40mg Tablets M.D. Theophylline ER bid Unknown 03/18/1989 300mg Tablets ER 12HR Multivitamin Adult Unknown Tablets Vitamin B Complex Unknown Tablets Vitamin B12 Unknown 100mcg Tablets Vitamin B6 Unknown 50mg Tablets Folic Acid Unknown 1mg Tablets Flax Seed Oil 1 by mouth every Unknown 1000mg day Capsules Beta Carotene Unknown [id number] Capsules Coq-10 Unknown 400mg Capsules Clopidogrel Bisulfate Demario Duff 75mg M.D. Tablets Montelukast Sodium ElisaimaDemario caldwell 10mg M.D. Tablets Anastrozole Bonifacio Carreno 1mg Tablets M.D. Fluticasone Propionate Daily Unknown 50mcg/Act Suspension Ipratropium Danielito Han [place]/Albuterol M.D. Sulfate 0.5-2.5(3)mg/3ML Solution Advair Diskus Unknown 100-50mcg/Dose Aerosol History Medications Ciprofloxacin HCL instill one drop 5ml Demario Recinos, 01/24/2019 - 0.3% left eye three M.D. 02/23/2019 Solution times a day. taper as directed. Ketorolac Tromethamine use one drop right 10ml Demario Recinos, 2018 - 0.5% eye twice a day. M.D. 02/23/2019 Solution one drop left eye three times a day. taper as directed. Prednisolone Acetate use one drop right 10ml Demario Recinos, 01/24/2019 - 1% eye twice a day. M.D. 02/23/2019 Suspension one drop left eye three times a day. taper as directed. Immunizations Description No Information Available Vital Signs Description No Information Available Results Description No Information Available Procedures Date Code Description Status 02/08/2019 86529 Extracapsular Cataract Extraction W/Intraocular Lens Completed 02/01/2019 58926 Extracapsular Cataract Extraction W/Intraocular Lens Completed 01/24/2019 36447 Ophthalmic Biometry Completed 01/24/2019 95550 Ophthalmic Biometry Completed 01/24/2019 56644 Est Patient Intermediate Exam Completed 01/16/2019 13611 Est Patient Comprehensive Exam Completed Medical Devices Description No Information Available Encounters Description No Information Available Assessments Date Code Description Provider 02/24/2019 Z96.1 Presence of intraocular lens Vilma Mobley O.D. 02/09/2019 Z96.1 Presence of intraocular lens Demario Recinos M.D. 02/08/2019 H25.812 Combined forms of age-related cataract, left Demario Recinos M.D. eye 02/02/2019 H25.812 Combined forms of age-related cataract, left Demario Recinos M.D. eye 02/02/2019 H50.011 Monocular esotropia, right eye Demario Recinos M.D. 02/02/2019 Z96.1 Presence of intraocular lens Demario Recinos M.D. 02/01/2019 H25.811 Combined forms of age-related cataract, Demario Recinos M.D. right eye 01/24/2019 H25.811 Combined forms of age-related cataract, Demario Recinos M.D. right eye 01/24/2019 H50.011 Monocular esotropia, right eye Demario Recinos M.D. 01/24/2019 H25.812 Combined forms of age-related cataract, left Demario Recinos M.D. eye 01/16/2019 H25.813 Combined forms of age-related cataract, Demario Recinos M.D. bilateral 01/16/2019 H50.011 Monocular esotropia, right eye Demario Recinos M.D. Plan of Treatment 02/24/2019 - Vilma Mobley O.D.Z96.1 Presence of intraocular lensComments: Your lens implant looks stable in both eyes at this time. You should be done, or almost done with your drops at this time according to your surgical calendar. I have given you a prescription for glasses. If you have any questions, please feel free to call our office at .Follow up:1 YEAR You can expect to have your eyes dilated at your next visit. If Dr. Mobley orders any additional testing, it may require extra time. We recommend that you bring sunglasses, as dilation drops often make you light sensitive until they wear off. We always recommend you bring someone to drive you home if you are uncomfortable driving with your eyes dilated. If you have any questions before your next visit, feel free to call our office at . Functional Status Description No Information Available Mental Status Description No Information Available Referrals Description No Information Available
--- OUTSIDE RECORDS SUMMARY | 2019-03-29 10:10 | XMS REPORT | Continuity of Care Document ---
:1940 External Reference #:[id number] Author Name Demario Recinos M.D. Address [address] [place] [address] Care Team Providers Name Role Phone Demario Duff M.D. - Internal Care Team Information [employer] [phone] Medicine Josh Early M.D. - Care Team Information [employer] [phone] Gastroenterology Problems Active Problems Provider Date Chronic [...] Use Denies Drug Use Smoking Status Reviewed: 02/09/19 Patient has never smoked Allergies, Adverse Reactions, Alerts Active Allergies Reaction Severity Comments Date Sulfa Antibiotics 09/03/2017 Salicylates 09/15/2013 Mercury 01/24/2019 Inactive Allergies NKDA 01/24/2019 Medications Active Medications SIG Qnty Indications Ordering Provider Date Fish Oil 1 by mouth every Demario Recinos, 01/24/2019 1000mg Capsules day M.D. Ciprofloxacin HCL instill one drop 5ml Demario Recinos, 01/24/2019 0.3% left eye three M.D. Solution times a day. taper as directed. Ketorolac Tromethamine use one drop 10ml Demario Recinos, 01/24/2019 0.5% right eye twice a M.D. Solution day. one drop left eye three times a day. taper as directed. Prednisolone Acetate use one drop 10ml Demario Recinos, 01/24/2019 1% right eye twice a M.D. Suspension day. one drop left eye three times a day. taper as directed. Artificial Tears Demario Recinos, 09/01/2017 0.2-0.2-1% M.D. Solution Simvastatin Demario Duff 06/26/2015 40mg Tablets M.D. Theophylline ER bid Unknown 03/18/1989 300mg Tablets ER 12HR Multivitamin Adult Unknown Tablets Vitamin B Complex Unknown Tablets Vitamin B12 Unknown 100mcg Tablets Vitamin B6 Unknown 50mg Tablets Folic Acid Unknown 1mg Tablets Flax Seed Oil 1 by mouth every Unknown 1000mg day Capsules Beta Carotene Unknown 30420Mvsb Capsules Coq-10 Unknown 400mg Capsules Clopidogrel Bisulfate Demario Duff 75mg M.D. Tablets Montelukast Sodium Demario Duff 10mg M.D. Tablets Anastrozole Bonifacio Carreno 1mg Tablets M.D. Fluticasone Propionate Daily Unknown 50mcg/Act Suspension Ipratropium Danielito Han [place]/Albuterol M.D. Sulfate 0.5-2.5(3)mg/3ML Solution Advair Diskus Unknown 100-50mcg/Dose Aerosol Immunizations Description No Information Available Vital Signs Description No Information Available Results Description No Information Available Procedures Date Code Description Status 02/01/2019 61698 Extracapsular Cataract Extraction W/Intraocular Lens Completed 01/24/2019 65017 Ophthalmic Biometry Completed 01/24/2019 86503 Ophthalmic Biometry Completed 01/24/2019 95053 Est Patient Intermediate Exam Completed 01/16/2019 23585 Est Patient Comprehensive Exam Completed Medical Devices Description No Information Available Encounters Description No Information Available Assessments Date Code Description Provider 02/09/2019 Z96.1 Presence of intraocular lens Demario Recinos M.D. 02/02/2019 H25.812 Combined forms of age-related cataract, [...] eye Demario Recinos M.D. Plan of Treatment Future Appointment(s):02/24/2019 11:00 am - Vilma Mobley O.D. at Demario Recinos MD, [facility] - Demario Recinos M.D.Z96.1 Presence of intraocular lensComments:Smoking can increase the risk of developing or worsening any eye related disease, as well as affect your overall health. If you are a smoker, we strongly recommend that you quit.If you are not a smoker, we strongly recommend that you do not start. The artifical lens implant in your left eye appears to be stable. Since this is the first day after surgery, your left eye is still dilated and the vision will still be slightly blurry. The dilation will go down over the next day or two. Continue taking your eye drops as directed on the surgical calendar. If you have any questions, please call our office.Follow up:2 Year Follow Up RA Functional Status Description No Information Available Mental Status Description No Information Available Referrals Description No Information Available
--- OUTSIDE RECORDS SUMMARY | 2019-03-29 10:10 | XMS REPORT | Summary of Care ---
:1940 Author Organization [facility] Address [address] [facility] [place] [address] Care Team Providers Name Role Phone Demario Duff MD Primary Care Provider Reason for Visit Reason Comments Follow Up Had surgery in May /doing well Encounter Details Date Type Department Care Team Description 01/30/2019 Office Visit [facility] Julia Cordero History of malignant Surgery MD Onofre neoplasm of breast [address] 1 [facility] (Primary Dx) [place] [address] [place] [address] [phone] Allergies Active Allergy Reactions Severity Noted Date Comments Mercury Swelling High 01/21/2010 Rash Salicylates HEEL SEATER Reaction 02/22/2012 Headaches, and pain Sulfa Antibiotics Other Low 01/21/2010 documented as of this encounter (statuses as of 01/30/2019) Medications Medication Sig Dispensed Refills Start Date End Date Status Montelukast Sodium Take 10 mg by mouth 0 Active (SINGULAIR PO) EVERY BEDTIME. Fluticasone-Salmetero Take 1 Puff by 0 Active l (ADVAIR DISKUS IN) inhalation TWICE DAILY. Theophylline 300 MG Take 300 mg by 0 Active Oral CAPSULE SR 12 HR mouth THREE TIMES DAILY. Coenzyme Q10 (COQ10 Take 1 Tab by mouth 0 Active PO) EVERY MORNING. Tina-3 Fatty Acids Take 1 Tab by mouth 0 Active (FISH OIL PO) TWICE DAILY. FOLIC ACID-VIT B6-VIT Take by mouth. 0 Active B12 PO CORAL CALCIUM PO Take 1 Tab by mouth 0 Active EVERY NOON. BETA CAROTENE PO Take 1 Tab by mouth 0 Active EVERY MORNING. VITAMIN E PO Take 1 Tab by mouth 0 Active EVERY MORNING. VITAMIN D PO Take 1 Tab by mouth 0 Active EVERY MORNING. Multiple Vitamin Take 1 Tab by mouth 0 Active (MULTI-VITAMIN PO) EVERY EVENING. FOLIC ACID PO Take 1 Tab by mouth 0 Active EVERY NOON. B Complex Vitamins Take 1 Tab by mouth 0 Active (VITAMIN-B COMPLEX EVERY NOON. PO) SIMVASTATIN PO Take by mouth. 0 Active Flaxseed, Linseed, Take by mouth. 0 Active (FLAX SEEDS PO) clopidogrel (PLAVIX) Take 75 mg by mouth 0 Active 75 MG Oral Tab DAILY. anastrozole Take 1 mg by mouth 0 Active (ARIMIDEX) 1 MG Oral DAILY. Tab documented as of this encounter (statuses as of 01/30/2019) Active Problems Problem Noted Date Carcinoma of central portion of left breast in female, estrogen receptor 05/30 positive Overview: Added automatically from request for surgery [id number] Malignant neoplasm of upper-outer quadrant of right breast in female, 2018 estrogen receptor positive Overview: Added automatically from request for surgery [id number] Family history of malignant neoplasm of breast 02/15/2007 Other screening mammogram 11/28/2003 documented as of this encounter (statuses as of 01/30/2019) Immunizations Name Administration Dates Next Due Depo Medrol (80mg) 11/03/2013 Lidocaine 1% (Not Billed) 11/03/2013 documented as of this encounter Social History Tobacco Use Types Packs/Day Years Used Date Former Smoker Smokeless Tobacco: Never Used Comments: quit in 1982 Alcohol Use Drinks/Week oz/Week Comments No Sex Assigned at Date Recorded Not on file Job Start Date Occupation Industry Not on file Not on file Not on file Travel History Travel Start Travel End No recent travel history available. documented as of this encounter Last Filed Vital Signs Vital Sign Reading Time Taken Comments Blood Pressure 130/80 01/30/2019 10:53 AM EDT Pulse 68 01/30/2019 10:53 AM EDT Temperature - - Respiratory Rate - - Oxygen Saturation - - Inhaled Oxygen Concentration - - Weight 66.2 kg (146 lb) 01/30/2019 10:53 AM EDT Height 167.6 cm (5' 6") 01/30/2019 10:53 AM EDT Body Mass Index 23.57 01/30/2019 10:53 AM EDT documented in this encounter Progress Notes Julia Cordero MD - 01/30/2019 11:00 AM EDT PATIENT: Vilma De La Cruz : 1940 DATE OF SERVICE: 01/30/2019 PRIMARY CARE PROVIDER: Demario Duff DIAGNOSIS: 1. 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 On 06/03/2018, bilateral mastectomies and bilateral axillary sentinel lymph node biopsies 2. Adjuvant endocrine therapyanastrozole under the care of Dr. Carreno, initiated on 07/22/2018 ECOG performance status: 0 CHIEF COMPLAINT: Chief Complaint Patient presents with Follow Up Had surgery in May /doing well HISTORY OF PRESENT ILLNESS: Vilma De La Cruz is a 78-y.o. female who presents for breast cancer surveillance. She is doing well. She has no symptoms related to her bilateral mastectomy skin flaps. She feels no arm heaviness or swelling bilaterally. She feels no restriction in bilateral shoulder range of motion. She is tolerating anastrozole well with no bone or joint aches and pains. PHYSICAL EXAMINATION: BP 130/80 Pulse 68 Ht 5' 6" (1.676 m) Wt 146 lb (66.2 kg) LMP (LMP Unknown ) BMI 23.57 kg/m2 GENERAL: alert, no distress LUNGS: Nonlabored respirations. BREASTS: Her bilateral mastectomy skin flaps are viable with no erythema and no nodularity. MUSCULOSKELETAL: No arm swelling bilaterally. No axillary cording bilaterally. Impression: Vilma De La Cruz presents for breast cancer surveillance. She has no signs or symptoms of breast cancer recurrence. Plan: Continue follow-up with Dr. Carreno as she takes adjuvant endocrine therapy. Plan breast cancer surveillance appointments every 6 months for the next 5 years. Return in 6 months for ongoing breast cancer surveillance. Ms. De La Cruz expressed understanding and agreement with this plan. All of her questions were answered to her satisfaction. I spent 15 minutes with Ms. De La Cruz, over 75% of which was spent in counseling/ coordination of care. Author: Julia Cordero MD 01/30/2019 11:04 cc: Demario Duff documented in this encounter Plan of Treatment Date Type Specialty Care Team Description 08/07/2019 Office Visit General Surgery Julia Cordero MD [address] [place] [address] [phone] Health Maintenance Due Date Last Done Comments MEDICARE ANNUAL WELLNESS VISIT 1940 DEPRESSION SCREENING 1951 HIV SCREENING 1954 ZOSTER IMMUNIZATION SERIES (1 1989 of 2) FALL RISK ASSESSMENT 2004 PNEUMOCOCCAL 65+YRS (1 of 2 - 2004 PCV13) INFLUENZA VACCINE (#1) 2018 OSTEOPOROSIS SCREENING 01/27/2021 01/27/2011 (Previously completed) HPV IMMUNIZATION SERIES Aged Out No longer eligible based on patient's age to complete this topic MENINGOCOCCAL VACCINE IMM Aged Out No longer eligible based on patient's age to complete this topic documented as of this encounter Implants Implanted Type Area Machine Deburrer Device Shelf Model / Identifier Expiration Date Serial / Lot Ringloc Cup Left: Hip BIOMET [id number] / Implanted: Qty: 1 on 08/25/2012 at [facility] / [id number] Ringloc Max Liner Left: Hip BIOMET [id number] / Implanted: Qty: 1 on 08/25/2012 at [facility] / [id number] Taperloc Stem Left: Hip BIOMET [id number] / Implanted: Qty: 1 on 08/25/2012 at [facility] / [id number] Modular Head Left: Hip BIOMET [id number] / Implanted: Qty: 1 on 08/25/2012 at [facility] / [id number] documented as of this encounter Results Not on filedocumented in this encounter Visit Diagnoses Diagnosis History of malignant neoplasm of breast - Primary Personal history of malignant neoplasm of breast documented in this encounter Insurance Payer Benefit Plan / Subscriber ID Effective Dates Phone Address Type Group MEDICARE MEDICARE PART xxxxxxxxxxx 2004-[facility] Medicare A & B t [facility] EMPIRE [facility]-EMPIRE xxxxxxxxx 2016-[employer] PL[employer] t [place] [employer] BCBS xxxxxxxxxxxx 2018-[employer] BC/BS [place]( t [place] P[place]) Guarantor Name Account Type Relation to Date of Phone Billing Patient Address Vilma De La Cruz Personal/Family 1940 [address] [phone] [place], [place] (Work) [id number] documented as of this encounter
--- OUTSIDE RECORDS SUMMARY | 2019-03-29 10:10 | XMS REPORT | Continuity of Care Document ---
:1940 External Reference #:[id number] Author Name Demario Recinos M.D. Address [address] [place] [address] Care Team Providers Name Role Phone Demario Duff M.D. - Internal Care Team Information Wire Spring Relay Adjuster Medicine Josh Early M.D. - Care Team Information Wire Spring Relay Adjuster [phone] Gastroenterology Problems Active Problems Provider Date Chronic obstructive lung disease Onset: Hypercholesterolemia Onset: Monocular esotropia Demario Recinos M.D. Onset: 09/03/2017 Combined form of senile cataract Demario Recinos M.D. Onset: 09/03/2017 Malignant neoplasm of female breast Onset: Note: 04/2018 Social History Type Date Description Comments Sex Unknown ETOH Use Denies alcohol use Tobacco Use Start: Unknown Patient has never smoked Recreational Drug Use Denies Drug Use Smoking Status Reviewed: 02/02/19 Patient has never smoked Allergies, Adverse Reactions, Alerts Active Allergies Reaction Severity Comments Date Sulfa Antibiotics 09/03/2017 Salicylates 09/15/2013 Mercury 01/24/2019 Inactive Allergies NKDA 01/24/2019 Medications Active Medications SIG Qnty Indications Ordering Provider Date Fish Oil 1 by mouth every Demario Recinos, 01/24/2019 1000mg Capsules day M.D. Ciprofloxacin HCL instill one drop 5ml Demario Recinos, 01/24/2019 0.3% in the right eye M.D. Solution three times a day, start the day before surgery Ketorolac Tromethamine use one drop in 10ml Demario Recinos, 01/24/2019 0.5% the right eye M.D. Solution three times a day, start the day before surgery Prednisolone Acetate 1 drops right eye 10ml Demario Recinos, 01/24/2019 1% three times a M.D. Suspension day. taper as directed Artificial Tears Demario Recinos, 09/01/2017 0.2-0.2-1% M.D. Solution Simvastatin Demario Duff 06/26/2015 40mg Tablets M.D. Theophylline ER bid Unknown 03/18/1989 300mg Tablets ER 12HR Multivitamin Adult Unknown Tablets Vitamin B Complex Unknown Tablets Vitamin B12 Unknown 100mcg Tablets Vitamin B6 Unknown 50mg Tablets Folic Acid Unknown 1mg Tablets Flax Seed Oil 1 by mouth every Unknown 1000mg day Capsules Beta Carotene Unknown [id number] Capsules Coq-10 Unknown 400mg Capsules Clopidogrel Bisulfate Demario Duff 75mg M.D. Tablets Montelukast Sodium Demario Duff 10mg M.D. Tablets Anastrozole Bonifacio Carreno 1mg Tablets M.D. Fluticasone Propionate Daily Unknown 50mcg/Act Suspension Ipratropium Danielito Han Kendrick/Albuterol M.D. Sulfate 0.5-2.5(3)mg/3ML Solution Advair Diskus Unknown 100-50mcg/Dose Aerosol Immunizations Description No Information Available Vital Signs Description No Information Available Results Description No Information Available Procedures Date Code Description Status 02/01/2019 01365 Extracapsular Cataract Extraction W/Intraocular Lens Completed 01/24/2019 65182 Ophthalmic Biometry Completed 01/24/2019 27256 Ophthalmic Biometry Completed 01/24/2019 93006 Est Patient Intermediate Exam Completed 01/16/2019 67278 Est Patient Comprehensive Exam Completed Medical Devices Description No Information Available Encounters Description No Information Available Assessments Date Code Description Provider 02/02/2019 H25.812 Combined forms of age-related cataract, left Demario Recinos M.D. eye 02/02/2019 H50.011 Monocular esotropia, right eye Demario Recinos M.D. 02/02/2019 Z96.1 Presence of intraocular lens Demario Recinos M.D. 02/01/2019 H25.811 Combined forms of age-related cataract, Demario Recinos M.D. right eye 01/24/2019 H25.811 Combined forms of age-related cataract, Dmeario Recinos M.D. right eye 01/24/2019 H50.011 Monocular esotropia, right eye Demario Recinos M.D. 01/24/2019 H25.812 Combined forms of age-related cataract, left Demario Recinos M.D. eye 01/16/2019 H25.813 Combined forms of age-related cataract, Demario Recinos M.D. bilateral 01/16/2019 H50.011 Monocular esotropia, right eye Demario Recinos M.D. Plan of Treatment Future Appointment(s):02/24/2019 11:00 am - Vilma Mobley O.D. at [facility] 12:15 pm - Demario Recinos M.D. at [facility] 7:00 am - Demario Rec[facility] M.D. at [facility] - Demario Recinos M.D.H25.812 Combined forms of age-related cataract, left eyeComments:Smoking can increase the risk of developing or worsening any eye related disease, as well as affect your overall health. If you are a smoker , we strongly recommend that you quit.If you are not a smoker, we strongly recommend that you do not start. Dense cataract in the left eye.Follow up:For surgery. Please keep post op appointments as scheduled.H50.011 Monocular esotropia, right eyeZ96.1 Presence of intraocular lensComments:The artifical lens implant in your right eye appears to be stable. Since this is the first day after surgery, your right eye is still dilated and the vision will still be slightly blurry. The dilation will go down over the next day or two. Continue taking your eye drops as directed on the surgical calendar. If you have any questions, please call our office. Functional Status Description No Information Available Mental Status Description No Information Available Referrals Description No Information Available
--- OUTSIDE RECORDS SUMMARY | 2019-03-29 10:10 | XMS REPORT | Continuity of Care Document ---
:1940 External Reference #:[id number] Author Name Yomaira Manley M.D. Address [address] [place] [address] Care Team Providers Name Role Phone [facility] - Care Team Information Airport Control Operator [phone] Gastroenterology Julio C Fernandez MD - Orthopaedic Care Team Information Airport Control Operator [phone] Surgery Josh Early MD - Care Team Information Airport Control Operator [phone] Gastroenterology Problems Active Problems Provider Date Asthma without status asthmaticus Mark Pinzon M.D. Onset: 02/21/2009 Arthralgia of the pelvic region and thigh Demario Duff M.D. Onset: Hyperlipidemia Demario Duff M.D. Onset: 05/10/2012 Transient cerebral ischemia Demario Duff M.D. Onset: 05/15/2014 Disorder of shoulder Demario Duff M.D. Onset: 07/17/2014 Pure hypercholesterolemia Demario Duff M.D. Onset: 03/05/2015 Chronic obstructive lung disease Demario Duff M.D. Onset: 02/25/2016 Malignant neoplasm of female breast Demario Duff M.D. Onset: 09/27/2018 Social History Type Date Description Comments Sex Unknown Tobacco Use Start: Unknown Nonsmoker quit 1982. after 20 years. ETOH Use Denies alcohol use Tobacco Use Start: Unknown End: Patient is a former smoker Unknown Smoking Status Reviewed: 02/14/19 Patient is a former smoker Allergies, Adverse Reactions, Alerts Active Allergies Reaction Severity Comments Date Sulfa Drugs 10/02/2003 Mercury 11/13/2008 Salicylates pain 06/09/2011 Medications Active Medications SIG Qnty Indications Ordering Date Provider Clopidogrel Take 1 Tablet 90tabs Demario Fonseca 08/17/2018 Bisulfate Daily Josie Duff 75mg Tablets Clotrimazole/Betamet use on skin twice 30units Demario Fonseca 02/07/2018 hasone Dipropionate a day Josie Duff 1-0.05% Cream Clobetasol use twice a day 30gm Demario Fonseca 07/28/2016 Propionate Josie Duff 0.05% Cream Simvastatin 1 by mouth every 90tabs Demario Fonseca 07/19/2014 40mg day Josie Duff Tablets Ipratropium use 1 vial via 270ml Demario Fonseca 04/30/2014 [place]/Albuterol nebulizer three Josie Duff Sulfate times a day and 1 additional time as 0.5-2.5(3)mg/3ML needed Solution Advair Diskus use one inhalation 3units Demario Fonseca 10/07/2010 two times a day Josie Duff 100-50mcg/Dose Aerosol Montelukast Sodium take 1 tablet 90tabs Demario Fonseca 05/03/2006 daily Josie Duff 10mg Tablets Theophylline ER Take 1 Tablet 180tabs Demario Fonseca 10/02/2003 300mg Twice A Day Josie Duff Tablets ER 12HR Fluticasone 1 spray per Unknown Propionate Nasal nostril daily [place] 24- Hour 50mcg/Act Suspension Anastrozole 1 by mouth every Unknown 1mg day Tablets History Medications Azithromycin 2 by mouth x 2 12tabs J20.9 Trish Bueno 12/16/2018 - 250mg days, then 1 by Josie Velázquez 01/31/2019 Tablets mouth daily until finished (8 days) Tessalon Perles take 1 capsule by 90caps J20.9 Trish Bueno 12/16/2018 - 100mg mouth two to Josie Velázquez 01/31/2019 Capsules three times daily as needed for cough Medrol use as directed 1units J18.8 Trish Bueno 12/09/2018 - 4mg TBPK Josie Velázquez 12/16/2018 Medications Administered in Office Medication SIG Qnty Indications Ordering Provider Date Injection Subcutaneous Or Demario Duff M.D. 11/13/2008 Intramuscular Injection Immunizations CPT Code Status Date Vaccine Lot # [id number] Given 02/23/2018 High-Dose, Influenza Virus Vacccine-fluzone 65 [id number] and older 42478 Given 02/19/2017 High-Dose, Influenza Virus Vacccine-fluzone 65 [id number] and older 51342 Given 02/25/2016 High-Dose, Influenza Virus Vacccine-fluzone 65 [id number] and older 75737 Given 01/29/2015 Influenza Vac, Quadrivalent, Slit Virus, Im [id number] 13515 Given 01/29/2015 Pneumococcal Conjugate Vacc-13 [id number] 36062 Given 07/20/2014 Zostivax [id number] Given 02/26/2014 High-Dose, Influenza Virus Vacccine-fluzone 65 and older 37633 Given 04/29/2013 DO Not Use Split Influenza Virus Vaccine 26697 Given 04/23/2010 DO Not Use Split Influenza Virus Vaccine [id number] 36001 Given 04/27/2001 Pneumococcal Immunization Vital Signs Date Vital Result Comment 02/14/2019 9:40am BP Systolic 120 mmHg BP Diastolic 80 mmHg Heart Rate 68 /min Body Temperature 97.7 F Respiratory Rate 16 /min Weight 146.00 lb 01/31/2019 10:20am BP Systolic 134 mmHg BP Diastolic 80 mmHg Heart Rate 76 /min Body Temperature 97.7 F Height 68.5 inches 5'8.50" Weight 145.00 lb BMI (Body Mass Index) 21.7 kg/m2 Results Test Date Facility Test Result H/L Range Note CBC Auto Diff 12/05/2018 [facility] White Blood Count 4.7 10^3/uL Normal 3.5- 10.8 Red Blood Count 4.37 10^6/uL Normal 3.70-4.87 Hemoglobin 13.4 g/dL Normal 12.0-16.0 Hematocrit 39 % Normal 35-47 Mean Corpuscular Volume 89 fL Normal 80-97 Mean Corpuscular Hemoglobin 31 pg Normal 27-31 Mean Corpuscular HGB Conc 35 g/dL Normal 31-36 Red Cell Distribution Width 14 % Normal 10-15 Platelet Count 234 10^3/uL Normal 150-450 Mean Platelet Volume 9.3 fL Normal 7.4-10.4 Abs Neutrophils 3.1 10^3/uL Normal 1.5-7.7 Abs Lymphocytes 1.1 10^3/uL Normal 1.0-4.8 Abs Monocytes 0.4 10^3/uL Normal 0-0.8 Abs Eosinophils 0.1 10^3/uL Normal 0-0.6 Abs Basophils 0.0 10^3/uL Normal 0-0.2 Abs Nucleated RBC 0.0 10^3/uL Granulocyte % 66.4 % Lymphocyte % 22.4 % Monocyte % 8.4 % Eosinophil % 1.9 % Basophil % 0.9 % Nucleated Red Blood Cells % 0.2 Comp Metabolic Panel 12/05/2018 [facility] Sodium 140 mmol/L Normal 135-145 Potassium 4.2 mmol/L Normal 3.5-5.0 Chloride 109 mmol/L Normal 101-111 Co2 Carbon Dioxide 24 mmol/L Normal 22-32 Anion Gap 7 mmol/L Normal 2-11 Glucose 98 mg/dL Normal 70-100 Blood Urea Nitrogen 19 mg/dL Normal 6-24 Creatinine 0.98 mg/dL High 0.51-0.95 BUN/Creatinine Ratio 19.4 Normal 8-20 Calcium 9.6 mg/dL Normal 8.6-10.3 Total Protein 6.3 g/dL Low 6.4-8.9 Albumin 4.2 g/dL Normal 3.2-5.2 Globulin 2.1 g/dL Normal 2-4 Albumin/Globulin Ratio 2.0 Normal 1-3 Total Bilirubin 0.50 mg/dL Normal 0.2-1.0 Alkaline Phosphatase 74 U/L Normal 34-104 Alt 15 U/L Normal 7-52 Ast 20 U/L Normal 13-39 Egfr Non- 54.7 >60 Egfr 66.2 >60 1 1 Because ethnic data is not always readily [...] 15-29 5 Kidney failure <15 (or dialysis) Procedures Date Code Description Status 04/26/2014 [id number] Mammogram Completed 07/10/2008 [id number] Mammogram Completed 04/26/2005 [id number] Bone Mineral Density Test Completed 04/26/2005 [id number] Colonoscopy Completed Medical Devices Description No Information Available Encounters Type Date Location Provider Dx Diagnosis Office Visit 01/31/2019 [facility] Office Demario Fonseca H25.23 Age-related 10:00a Josie Duff cataract, morgagnian type, bilateral J44.1 Chronic obstructive pulmonary disease w (acute) exacerbation 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 unspecified Office Visit 12/09/2018 11:20a [facility] Office Trish Bueno J18.8 Other pneumoniaMelania M.D. unspecified organism N39.0 Urinary tract infection, site not specified E86.0 Dehydration Office Visit 09/27/2018 9:20a [facility] Office Demario Erickson.1 Chronic Josie Duff obstructive pulmonary disease w (acute) exacerbation C50.912 Malignant neoplasm of unspecified site of left female breast Assessments Date Code Description Provider 02/14/2019 S40.262A Insect bite (nonvenomous) of left Yomaira Manley M.D. shoulder, initial encounter 01/31/2019 H25.23 Age-related cataract, morgagnian type, Demario Duff M.D. bilateral 01/31/2019 J44.1 Chronic obstructive pulmonary disease Demario Duff M.D. with (acute) exacerbat 01/31/2019 I67.848 Other cerebrovascular vasospasm and Demario Duff M.D. vasoconstriction 01/31/2019 Z01.818 Encounter for other preprocedural Demario Duff M.D. examination 12/16/2018 J20.9 Acute bronchitis, unspecified Trish Velázquez M.D. 12/09/2018 J18.8 Other pneumonia, unspecified organism Trish Velázquez M.D. 12/09/2018 N39.0 Urinary tract infection, site not Trish Velázquez M.D. specified 12/09/2018 E86.0 Dehydration Trish Velázquez M.D. 09/27/2018 J44.1 Chronic obstructive pulmonary disease Demario Duff M.D. with (acute) exacerbat 09/27/2018 C50.912 Malignant neoplasm of unspecified site of Demario Duff M.D. left female breast Plan of Treatment 02/14/2019 - Yomaira Manley M.D.S40.262A Insect bite (nonvenomous) of left shoulder, initial encounterComments:Discussed lyme disease precaution and treatment. When spending time outdoors, check entire body for ticks daily. If any residual remains, your body will expel it. The bite site may be red and itchy due to the tick's saliva. Monitor the site of the tick bite over the next two to three weeks to see if you develop a rash. Less than half of the local deer tick population carries Lyme disease and ticks are inefficient at transmitting it, which makes your chances of being infected pretty low especially if the attachment is less than 48 hours. Monitor for symptoms of lyme include a bull's eye/target rash, fever, body aches, and flu like symptoms. Call if experiencing any symptoms or make an appointment.AllComments: Medication Management Patient Understands medications she's taking? Yes No Are there Barriers to Adherence? Yes No Has the patient been asked about herbal supplements and therapies, and OTC meds? Yes No Functional Status Description No Information Available Mental Status Description No Information Available Referrals Description No Information Available
[2019-03-29 12:45] LABS: ABS Eosinophils 0.1 10^3/ul (0-0.6); ABS Lymphocytes 0.9 10^3/ul (1.0-4.8); ABS Monocytes 0.9 10^3/ul (0-0.8); ABS Neutrophils 9.4 10^3/ul (1.5-7.7); Hematocrit 42 % (35-47); Hemoglobin 13.8 g/dL (12.0-16.0); Lymphocyte % 8.3 %; Mean Corpuscular HGB Conc 33 g/dL (31-36); Mean Corpuscular Hemoglobin 30 pg (27-31); Mean Corpuscular Volume 91 fL (80-97); Mean Platelet Volume 8.1 fL (7.4-10.4); Platelet Count 235 10^3/uL (150-450); Red Blood Count 4.58 10^6 /uL (3.70-4.87); Red Cell Distribution Width 14 % (10-15); White Blood Count 11.4 10^3/uL (3.5-10.8)
[2019-03-29 13:07] LABS: ALT 17 U/L (7-52); AST 20 U/L (13-39); Albumin 4.2 g/dL (3.2-5.2); Albumin/Globulin Ratio 1.4 (1-3); Alkaline Phosphatase 100 U/L (34-104); Anion Gap 8 mmol/L (2-11); BUN/Creatinine Ratio 14.9 (8-20); Blood Urea Nitrogen 15 mg/dL (6-24); C Reactive Protein 253.81 mg/L (<8.01); CO2 Carbon Dioxide 26 mmol/L (22-32); Chloride 101 mmol/L (101-111); EGFR Non-African American 52.9 (>60); Globulin 2.9 g/dL (2-4); Glucose 94 mg/dL (70-100); Sodium 135 mmol/L (135-145); Total Protein 7.1 g/dL (6.4-8.9)
--- NOTE | 2019-03-29 14:53 | ED ---
GI/ HPI - HPI Summary HPI Summary: The patient is a 78 y/o F presenting to [facility] accompanied by with a chief complaint of melenic stool for the last two days. She reports that two nights ago, she began experiencing black coal diarrhea. The next day, she continued to have melenic diarrhea, so she took Pepto Bismol to no relief of the diarrhea. She has continued to experience the dark and loose stools. She endorses nausea and diffuse cramping abdominal pain occurring immediately prior to passing stool and subsided following the movement. Her symptoms are currently rated 2/10 in severity. She additionally states pain in the posterior bilateral legs and generalized weakness. She denies any chest pain or shortness of breath. She uses Plavix daily but did not take it today due to her symptoms. She has not used any Aspirin, Ibuprofen, or NSAIDs. Last colonscopy was in 2005. PMHx: anemia, thyroid disease, DVT, COPD, Menetriers disease, CVA, TIA. Former smoker, no EtOH, no substance use. Medications reviewed. Allergies noted. - History of Current Complaint Chief Complaint: EDGIBleed Time Seen by Provider: 03/29/19 14:32 Stated Complaint: DIARREA/BLACK STOOL PER PT Hx Obtained From: Patient Hx Last Menstrual Period: 48 yrs Onset/Duration: Started Days Ago - three, Still Present Timing: Lasting Days Severity: Moderate Current Severity: Moderate Pain Intensity: 2 Location of Pain: Diffuse Pain Characteristics: Cramping Associated Signs and Symptoms: Positive: Weakness, Nausea, Diarrhea - melena, Abdominal Pain - diffuse, Other: - myalgia in posterior thighs; Negative: shortness of breath. Negative: Chest Pain Aggravating Factor(s): Nothing Alleviating Factor(s): Bowel Movements - Additional Pertinent History Primary Care Physician: [id number] - Allergy/Home Medications Allergies/Adverse Reactions: Allergies Allergy/AdvReac Type Severity Reaction Status Date / Time mercury (elemental) Allergy Severe Swelling Verified 02/08/19 09:18 Of Face,Lips,& Throat salicylates AdvReac Joint Pain Verified 02/08/19 09:18 Sulfa (Sulfonamide AdvReac Joint Pain Verified 02/08/19 09:18 Antibiotics) ENVIRONMENTAL/SEASONAL Allergy CONGESTION, Uncoded 02/08/19 09:18 ASTHMA Home Medications: Home Medications Clotrimazole/Betamethasone* [Lotrisone Cream*] 1 applic TOPICAL BID 03/29/19 [ History Confirmed 03/29/19] Fluticasone NASAL SPRAY 50MCG* [Flonase NASAL SPRAY 50MCG*] 2 spray BOTH NARES DAILY 03/29/19 [History Confirmed 03/29/19] Ipratropium 0.5MG/2.5ML NEB* [Atrovent 0.5 MG NEB.JOANNE*] 0.5 mg INH QID PRN 03/29 [History Confirmed 03/29/19] PMH/Surg Hx/FS Hx/Imm Hx Endocrine/Hematology History: Reports: Hx Thyroid Disease - hx of nodule, goiter 2010 pt states all clear, 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, NO PROBLEMS SINCE ADULTHOOD Denies: Hx Diabetes, Hx Systemic Lupus Erythematosus Cardiovascular History: Denies: Hx Congestive Heart Failure, Hx Hypercholesterolemia, Hx Hypertension , Hx Pacemaker/ICD Respiratory History: Reports: Hx Asthma - INHALER, Hx Chronic Obstructive Pulmonary Disease (COPD), Hx Pneumonia, Other Respiratory Problems/Disorders - hx of COPD, hx of pneumonia last in 06/2018/ right nasal polyps GI History: Reports: Other GI Disorders - gastrectomy 2005 FOR ADHESIONS, Menetriers Disease History: Reports: Hx Kidney Infection, Hx Kidney Stones, Other Problems/ Disorders - RIGHT HYDRONEPHROSIS Denies: Hx Renal Disease Musculoskeletal History: Reports: Hx Arthritis Denies: Hx Rheumatoid Arthritis Sensory History: Reports: Hx Cataracts - BEGINNING, Hx Contacts or Glasses, Hx Hearing Aid, Hx Hearing Problem Opthamlomology History: Reports: Hx Cataracts - BEGINNING, Hx Contacts or Glasses Neurological History: Reports: Hx CVA, Hx Transient Ischemic Attacks (TIA) Psychiatric History: Denies: Hx Panic Disorder - Cancer History Hx Chemotherapy: No - Surgical History Surgical History: Yes Surgery Procedure, Year, and Place: Stent Rt kidney July 2013 removed, Lt Hip replacement 08/2012, 3 C-sections, Complete Hysterectomy, Adhesions-Colon, Menetrier's Disease-Partial Gastric surgery 1984, right Breast Biopsy-Benign Hx Anesthesia Reactions: Yes - 1960'S CONSTANT CRYING - Immunization History Date of Influenza Vaccine: 02/09 Infectious Disease History: No Infectious Disease History: Denies: Traveled Outside the [place] in Last 30 Days - Family History Known Family History: Positive: Cardiac Disease - Social History Alcohol Use: None Hx Substance Use: No Substance Use Type: Reports: None Hx Tobacco Use: Yes Smoking Status (MU): Former Smoker Length of Time of Smoking/Using Tobacco: OFF AND ON FOR ABOUT 16 YEARS Have You Smoked in the Last Year: No Review of Systems Negative: Chest Pain Negative: Shortness Of Breath Positive: Abdominal Pain, Diarrhea - melenic, Nausea Positive: Myalgia - in the posterior bilateral thighs Positive: Weakness - generalized All Other Systems Reviewed And Are Negative: Yes Physical Exam - Summary Physical Exam Summary: VITAL SIGNS: Reviewed. GENERAL: Patient is a well-developed and nourished female who is lying comfortable in the stretcher. Patient is not in any acute respiratory distress. HEAD AND FACE: No signs of trauma. No ecchymosis, hematomas or skull depressions. No sinus tenderness. EYES: PERRLA, EOMI x 2, No injected conjunctiva, no nystagmus. EARS: Hearing grossly intact. Ear canals and tympanic membranes are within normal limits. MOUTH: Oropharynx within normal limits. NECK: Supple, trachea is midline, no adenopathy, no JVD, no carotid bruit, no c- spine tenderness, neck with full ROM. CHEST: Symmetric, no tenderness at palpation. LUNGS: Clear to auscultation bilaterally. No wheezing or crackles. CVS: Regular rate and rhythm, S1 and S2 present, no murmurs or gallops appreciated. ABDOMEN: Soft, non-tender. No signs of distention. No rebound, no guarding, and no masses palpated. Bowel sounds are normal. EXTREMITIES: FROM in all major joints, no edema, no cyanosis or clubbing. NEURO: Alert and oriented x 3. No acute neurological deficits. Speech is normal and follows commands. SKIN: Dry and warm. RECTAL: Melena. No hemorrhoids. No gross blood. Triage Information Reviewed: Yes Vital Signs On Initial Exam: Initial Vitals Temp Pulse Resp BP Pulse Ox 97.1 F 81 14 117/75 96 03/29/19 09:54 03/29/19 09:54 03/29/19 09:54 03/29/19 09:54 03/29/19 09:54 Vital Signs Reviewed: Yes Procedures - Sedation Patient Received Moderate/Deep Sedation with Procedure: No Diagnostics - Vital Signs Vital Signs Temp Pulse Resp BP Pulse Ox 03/29/19 14:38 118/66 03/29/19 14:19 100.2 F 89 16 149/88 95 12/04/19 11:43 98.9 F 77 14 138/74 96 03/29/19 09:54 97.1 F 81 14 117/75 96 - Laboratory Lab Results: Lab Results 03/29/19 03/29/19 03/29/19 Range/Units 12:37 12:37 12:37 WBC 11.4 H (3.5-10.8) 10^3/uL RBC 4.58 (3.70-4.87) 10^6 /uL Hgb 13.8 (12.0-16.0) g/dL Hct 42 (35-47) % MCV 91 (80-97) fL MCH 30 (27-31) pg MCHC 33 (31-36) g/dL RDW 14 (10-15) % Plt Count 235 (150-450) 10^3/uL MPV 8.1 (7.4-10.4) fL Neut % (Auto) 82.3 % Lymph % (Auto) 8.3 % [place] % (Auto) 8.2 % Eos % (Auto) 1.0 % Baso % (Auto) 0.2 % Absolute Neuts (auto) 9.4 H (1.5-7.7) 10^3/ul Absolute Lymphs (auto) 0.9 L (1.0-4.8) 10^3/ul Absolute Monos (auto) 0.9 H (0-0.8) 10^3/ul Absolute Eos (auto) 0.1 (0-0.6) 10^3/ul Absolute Basos (auto) 0.0 (0-0.2) 10^3/ul Absolute Nucleated RBC 0.0 10^3/ul Nucleated RBC % 0.0 Sodium 135 (135-145) mmol/L Potassium 4.0 (3.5-5.0) mmol/L Chloride 101 (101-111) mmol/L Carbon Dioxide 26 (22-32) mmol/L Anion Gap 8 (2-11) mmol/L BUN 15 (6-24) mg/dL Creatinine 1.01 H (0.51-0.95) mg/dL Est GFR ( Amer) 64.0 (>60) Est GFR (Non-Af Amer) 52.9 (>60) BUN/Creatinine Ratio 14.9 (8-20) Glucose 94 (70-100) mg/dL Lactic Acid 0.8 (0.5-2.0) mmol/L Calcium 10.0 (8.6-10.3) mg/dL Total Bilirubin 0.60 (0.2-1.0) mg/dL AST 20 (13-39) U/L ALT 17 (7-52) U/L Alkaline Phosphatase 100 (34-104) U/L C-Reactive Protein 253.81 H (<8.01) mg/L Total Protein 7.1 (6.4-8.9) g/dL Albumin 4.2 (3.2-5.2) g/dL Globulin 2.9 (2-4) g/dL Albumin/Globulin Ratio 1.4 (1-3) Lipase < 10 L (11.0-82.0) U/L Blood Type Antibody Screen 03/29/19 Range/Units 12:37 WBC (3.5-10.8) 10^3/uL RBC (3.70-4.87) 10^6 /uL Hgb (12.0-16.0) g/dL Hct (35-47) % MCV (80-97) fL MCH (27-31) pg MCHC (31-36) g/dL RDW (10-15) % Plt Count (150-450) 10^3/uL MPV (7.4-10.4) fL Neut % (Auto) % Lymph % (Auto) % [place] % (Auto) % Eos % (Auto) % Baso % (Auto) % Absolute Neuts (auto) (1.5-7.7) 10^3/ul Absolute Lymphs (auto) (1.0-4.8) 10^3/ul Absolute Monos (auto) (0-0.8) 10^3/ul Absolute Eos (auto) (0-0.6) 10^3/ul Absolute Basos (auto) (0-0.2) 10^3/ul Absolute Nucleated RBC 10^3/ul Nucleated RBC % Sodium (135-145) mmol/L Potassium (3.5-5.0) mmol/L Chloride (101-111) mmol/L Carbon Dioxide (22-32) mmol/L Anion Gap (2-11) mmol/L BUN (6-24) mg/dL Creatinine (0.51-0.95) mg/dL Est GFR ( Amer) (>60) Est GFR (Non-Af Amer) (>60) BUN/Creatinine Ratio (8-20) Glucose (70-100) mg/dL Lactic Acid (0.5-2.0) mmol/L Calcium (8.6-10.3) mg/dL Total Bilirubin (0.2-1.0) mg/dL AST (13-39) U/L ALT (7-52) U/L Alkaline Phosphatase (34-104) U/L C-Reactive Protein (<8.01) mg/L Total Protein (6.4-8.9) g/dL Albumin (3.2-5.2) g/dL Globulin (2-4) g/dL Albumin/Globulin Ratio (1-3) Lipase (11.0-82.0) U/L Blood Type O Positive Antibody Screen Negative Result Diagrams: 03/29/19 12:37 03/29/19 12:37 Lab Statement: Any lab studies that have been ordered have been reviewed, and results considered in the medical decision making process. - CT Abdomen/Pelvic CT CT Interpretation Completed By: Radiologist Summary of CT Findings: Impression: No etiology for abdominal pain, diarrhea, or GI bleeds evident. ED physician has reviewed this report. Re-Evaluation - Re-Evaluation First Eval Re-Evaluation Time: 18:10 Change: Improved Comment: We discussed results and plan for discharge. GIGU Course/Dx - Course Assessment/Plan: This patient is a 78-year-old female who presents to the emergency room with a chief complaint of having black stools. Patient reports that initially she had diarrhea and that should develop these black stools. Then yesterday she took some Pepto-Bismol, and she continued to have black stools. However, she reports that she had melena before she took the Pepto- Bismol but not very sure. She has abdominal cramping. She takes Plavix and occasional NSAIDs. Last colonoscopy was in 2005. Blood test results without any significant abnormality except for WBCs of 11.4, creatinine of 1.01, CRP of 253 , and urinalysis negative for UTI. Urinalysis is negative for UTI. We will send the urine for cultures. The patient denies any urinary frequency or dysuria. At this point I cannot account for the increased CRP however the patient had episodes of diarrhea which are improving. And I believe that the dark stools are secondary to the Pepto-Bismol. The patient is hemodynamically stable, alert , and oriented 3. The patient is not toxic or ill looking. I discussed all the findings and test results with the patient. Patient was instructed to return to the emergency room immediately if any of the symptoms return worsens. Plan of care was discussed with the patient and understands and agrees. All questions were answered at patient satisfaction. There were no further complaints or concerns. Lung exam before discharge: CTA B/L. Good air exchange. No wheezing or crackles heard. CVS: S1 and S2 present. No murmurs appreciated. Patient is alert and oriented x 3. Patient is hemodynamically stable. Patient will be discharged home with follow up PCP in the next 2-3 days. - Diagnoses Differential Diagnoses - Female: Diverticulosis, Enterocolitis, Gastritis, Gastroenteritis (Viral), Gastroenteritis (Bacterial) Provider Diagnoses: Diarrhea, Abdominal cramping Discharge ED - Sign-Out/Discharge Documenting (check all that apply): Patient Departure - Patient will be discharged home. - Discharge Plan Condition: Stable Disposition: HOME Patient Education Materials: Acute Diarrhea (ED), Abdominal Pain (ED) Referrals: Demario Duff MD [Primary Care Provider] - 3 Days Additional Instructions: Follow up with your primary care provider in 2-3 days. Return to the emergency department for any new or worsening symptoms. - Billing Disposition and Condition Condition: STABLE Disposition: Home - Attestation Statements Document Initiated by Princess: Yes Documenting Scribe: Leisa Felton Provider For Whom Princess is Documenting (Include Credential): Dr. Valentino Leslie MD Scribe Attestation: Leisa Triplett scribed for Dr. Valentino Leslie MD on 03/31/19 at 0738. Scribe Documentation Reviewed: Yes Provider Attestation: The documentation as recorded by the Leisa riddle accurately reflects the service I personally performed and the decisions made by me, Dr. Valentino Leslie MD Status of Scribe Document: Viewed
[2019-03-29 15:44] LABS: Urine Appearance Clear; Urine Bilirubin Negative (Negative); Urine Blood Negative (Negative); Urine Color Yellow; Urine Glucose Negative (Negative); Urine Ketones 1+ (Negative); Urine Nitrite Negative (Negative); Urine Protein Negative (Negative); Urine Specific Gravity 1.016 (1.010-1.030); Urine Urobilinogen Negative (Negative)
[2019-03-29 15:45] LABS: Urine Bacteria 1+ (Absent); Urine Red Blood Cell Trace(0-2/hpf) (Absent); Urine Squamous Epithelial Cell Present (Absent); Urine White Blood Cell Trace(0-5/hpf) (Absent)
[2019-03-29] MEDS ORDERED: Iohexol 300* (CONTRAST) 10 ML SDV IV ONE (16:48)
[2019-03-29 18:19] VITALS: BP 124/67
== END 2019-03-29 18:15 | disposition home or self-care (01) ==
LOC: ED 09:53
DX: R19.7 Diarrhea, unspecified (principal); R10.84 Generalized abdominal pain; R11.0 Nausea; M79.605 Pain in left leg; M79.604 Pain in right leg; R53.1 Weakness; J44.9 Chronic obstructive pulmonary disease, unspecified; Z79.01 Long term (current) use of anticoagulants; Z96.642 Presence of left artificial hip joint; Z88.2 Allergy status to sulfonamides; Z87.891 Personal history of nicotine dependence
CPT/HCPCS: 36415; 74177; 80053; 81003; 81015; 82270; 83605; 83690; 85025; 86140; 86850; 86900; 86901; 87086; 99283; Q9967

== ENCOUNTER 2019-04-07 14:34 | Inpatient (IN) | payer MEDICARE, BC ==
[2019-04-07] MEDS ORDERED: NS 0.9% 1000 ML** 1,000 ML IV ONE ×2 (18:08→19:21)
--- NOTE | 2019-04-07 18:17 | ED ---
GI/ HPI - HPI Summary HPI Summary: This patient is a 78 year old female presenting to [facility] with a chief complaint of continued diarrhea and weakness. She states she was here last week and her symptoms have not resolved. She states her weakness has worsened and has abdominal pain. She also reports decreased appetite and sore throat. She reports an exacerbation of chronic back and shoulder pain. Pt denies any fever, chills, erythema of eyes, sore throat, CP, SOB, cough, N/V, dysuria, hematuria , myalgia, edema, rash, or dizziness. - History of Current Complaint Chief Complaint: EDWeakness Time Seen by Provider: 04/07/19 16:54 Stated Complaint: COUGH Hx Obtained From: Patient Hx Last Menstrual Period: 48 yrs Onset/Duration: Started Weeks Ago Timing: Constant Pain Intensity: 5 - Additional Pertinent History Primary Care Physician: JOSH - Allergy/Home Medications Allergies/Adverse Reactions: Allergies Allergy/AdvReac Type Severity Reaction Status Date / Time mercury (elemental) Allergy Severe Swelling Verified 04/07/19 15:03 Of Face,Lips,& Throat salicylates AdvReac Joint Pain Verified 04/07/19 15:03 Sulfa (Sulfonamide AdvReac Joint Pain Verified 04/07/19 15:03 Antibiotics) ENVIRONMENTAL/SEASONAL Allergy CONGESTION, Uncoded 04/07/19 15:03 ASTHMA Home Medications: Home Medications Levofloxacin TAB* [Levaquin TAB*] 500 mg PO DAILY 04/07/19 [History Confirmed ] PMH/Surg Hx/FS Hx/Imm Hx Endocrine/Hematology History: Reports: Hx Thyroid Disease - hx of nodule, goiter 2010 pt states all clear, 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, NO PROBLEMS SINCE ADULTHOOD Denies: Hx Diabetes, Hx Systemic Lupus Erythematosus Cardiovascular History: Reports: Other Cardiovascular Problems/Disorders Denies: Hx Congestive Heart Failure, Hx Hypercholesterolemia, Hx Hypertension , Hx Pacemaker/ICD Respiratory History: Reports: Hx Asthma - INHALER, Hx Chronic Obstructive Pulmonary Disease (COPD), Hx Pneumonia, Other Respiratory Problems/Disorders - hx of COPD, hx of pneumonia last in 06/2018/ right nasal polyps GI History: Reports: Other GI Disorders - gastrectomy 2005 FOR ADHESIONS, Menetriers Disease History: Reports: Hx Kidney Infection, Hx Kidney Stones, Other Problems/ Disorders - RIGHT HYDRONEPHROSIS Denies: Hx Renal Disease Musculoskeletal History: Reports: Hx Arthritis Denies: Hx Rheumatoid Arthritis Sensory History: Reports: Hx Cataracts - BEGINNING, Hx Contacts or Glasses, Hx Hearing Aid, Hx Hearing Problem Opthamlomology History: Reports: Hx Cataracts - BEGINNING, Hx Contacts or Glasses Neurological History: Reports: Hx CVA, Hx Transient Ischemic Attacks (TIA) Psychiatric History: Denies: Hx Panic Disorder - Cancer History Hx Chemotherapy: No - Surgical History Surgery Procedure, Year, and Place: Stent Rt kidney July 2013 removed, Lt Hip replacement 08/2012, 3 C-sections, Complete Hysterectomy, Adhesions-Colon, Menetrier's Disease-Partial Gastric surgery 1984, right Breast Biopsy-Benign Hx Anesthesia Reactions: Yes - 1960'S CONSTANT CRYING - Immunization History Date of Influenza Vaccine: 02/09 Infectious Disease History: No Infectious Disease History: Denies: Traveled Outside the [place] in Last 30 Days - Family History Known Family History: Positive: Cardiac Disease - Social History Alcohol Use: None Hx Substance Use: No Substance Use Type: Reports: None Hx Tobacco Use: Yes Smoking Status (MU): Former Smoker Length of Time of Smoking/Using Tobacco: OFF AND ON FOR ABOUT 16 YEARS Have You Smoked in the Last Year: No Review of Systems Positive: Other - Decreased appetite. Negative: Fever, Chills Negative: Erythema Positive: Sore Throat Negative: Chest Pain Negative: Shortness Of Breath, Cough Positive: Abdominal Pain, Diarrhea. Negative: Vomiting, Nausea Negative: dysuria, hematuria Positive: Other - Back and shoulder pain. Negative: Myalgia, Edema Negative: Rash Neurological: Other - Neg: Dizziness Positive: Weakness All Other Systems Reviewed And Are Negative: No Physical Exam - Summary Physical Exam Summary: Constitutional: Well-developed, Well-nourished, Alert. (-) Distressed Skin: Warm, Dry HENT: Normocephalic; Atraumatic. Dry mucoous membranes Eyes: Conjunctiva normal Neck: Musculoskeletal ROM normal neck. (-) JVD, (-) Stridor, (-) Tracheal deviation Cardio: Rhythm regular, rate bradycardic, Heart sounds normal; Intact distal pulses; The pedal pulses are 2+ and symmetric. Radial pulses are 2+ and symmetric. (-) Murmur Pulmonary/Chest wall: Effort normal. (-) Respiratory distress, (+) Inspiratory and expritory Wheezes in the upper and lower lung bryant, (-) Rales Abd: Soft, (+) suprapubic tenderness, (-) Distension, (-) Guarding, (-) Rebound Musculoskeletal: (-) Edema Lymph: (-) Cervical adenopathy Neuro: Alert, Oriented x3 Psych: Mood and affect Normal Triage Information Reviewed: Yes Vital Signs On Initial Exam: Initial Vitals Temp Pulse Resp BP Pulse Ox 100.1 F 45 16 109/54 98 04/07/19 14:57 04/07/19 14:57 04/07/19 14:57 04/07/19 14:57 04/07/19 14:57 Vital Signs Reviewed: Yes Procedures - Sedation Patient Received Moderate/Deep Sedation with Procedure: No Diagnostics - Vital Signs Vital Signs Temp Pulse Resp BP Pulse Ox 04/07/19 16:22 99.3 F 44 16 127/44 98 04/07/19 14:57 100.1 F 45 16 109/54 98 - Laboratory Result Diagrams: 04/07/19 18:23 04/07/19 18:23 Lab Statement: Any lab studies that have been ordered have been reviewed, and results considered in the medical decision making process. - Radiology CXR Radiology Interpretation Completed By: Radiologist Summary of Radiographic Findings: Possible right upper lung pneumonia with bronchiectatic dilatation. Please correlate to surgical history as this corresponds to surgical clips as well. ED Provider has reviewed this report. - EKG 1825 Cardiac Rate: NL - 78 BPM EKG Rhythm: Sinus Rhythm Summary of EKG Findings: No STEMI. ED Physician has reviewed and interpreted this report. GIGU Course/Dx - Course Course Of Treatment: This patient is a 78 year old female presenting to [facility] with a chief complaint of continued diarrhea and weakness. CXR reveals possible right upper lung pneumonia with bronchiectatic dilatation. Please correlate to surgical history as this corresponds to surgical clips as well.Patient will be signed out to Dr. Stockton pending Hospitalist consult at shift change 1900. - Diagnoses Provider Diagnoses: Community acquired pneumonia, Sepsis, Urinary retention Discharge ED - Sign-Out/Discharge Documenting (check all that apply): Sign-Out Patient Signing out patient TO: Gage Stockton - At shift change 1900 pending consult - Discharge Plan Condition: Stable Referrals: Demario Duff MD [Primary Care Provider] - - Attestation Statements Document Initiated by Scribe: Yes Documenting Scribe: Terell Ambrosio Provider For Whom Scribe is Documenting (Include Credential): Daniel Wayne MD Scribe Attestation: I, Terell Ambrosio, scribed for Daniel Wayne MD on 04/07/19 at 1922. Status of Scribe Document: Ready
[2019-04-07 18:38] LABS: ABS Eosinophils 0.1 10^3/ul (0-0.6); ABS Lymphocytes 0.9 10^3/ul (1.0-4.8); ABS Monocytes 1.5 10^3/ul (0-0.8); ABS Neutrophils 8.4 10^3/ul (1.5-7.7); Eosinophil % 0.7 %; Hematocrit 32 % (35-47); Lymphocyte % 8.7 %; Mean Corpuscular HGB Conc 34 g/dL (31-36); Mean Corpuscular Hemoglobin 31 pg (27-31); Mean Corpuscular Volume 89 fL (80-97); Mean Platelet Volume 7.9 fL (7.4-10.4); Platelet Count 318 10^3/uL (150-450); Red Blood Count 3.61 10^6 /uL (3.70-4.87); Red Cell Distribution Width 14 % (10-15); White Blood Count 10.9 10^3/uL (3.5-10.8)
[2019-04-07 18:49] LABS: Albumin 2.4 g/dL (3.2-5.2); Albumin/Globulin Ratio 1.1 (1-3); BUN/Creatinine Ratio 15.5 (8-20); Calcium 7.8 mg/dL (8.6-10.3); EGFR African American 62.5 (>60); EGFR Non-African American 51.7 (>60); Globulin 2.2 g/dL (2-4); Magnesium 2.1 mg/dL (1.9-2.7); Potassium 3.7 mmol/L (3.5-5.0); Total Bilirubin 0.7 mg/dL (0.2-1.0); Total Protein 4.6 g/dL (6.4-8.9)
[2019-04-07] MEDS ORDERED: Azithromycin 500 mg/250 ml NS 500 MG/250 ML BAG IVPB ONE (18:52)
[2019-04-07] MEDS ORDERED: cefTRIAXone(*) 1 GM in NS 0.9% 50 ML* 50 ML IVPB ONE (18:52)
[2019-04-07 19:56] LABS: C Reactive Protein 163.75 mg/L (<8.01)
[2019-04-07] MEDS ORDERED: Ondansetron INJ* 2 MG/ML VIAL IV PRN (20:06)
[2019-04-07] MEDS ORDERED: Clobetasol 0.05% OINT* 30 GM TUBE TOPICAL PRN (20:12)
[2019-04-07] MEDS ORDERED: Albuterol/Ipratropium NEB.SOL* Albuterol 2.5 MG/Ipratropium 0.5 MG 3 ML INH PRN (20:13)
[2019-04-07 20:30] LABS: TSH (Thyroid Stimulating Horm) 1.82 mcIU/mL (0.34-5.60)
[2019-04-07 20:48] LABS: Urine Appearance Clear; Urine Bilirubin Negative (Negative); Urine Blood Negative (Negative); Urine Color Amber; Urine Glucose Negative (Negative); Urine Ketones Negative (Negative); Urine Nitrite Negative (Negative); Urine Protein Negative (Negative); Urine Specific Gravity 1.014 (1.010-1.030); Urine Urobilinogen Negative (Negative)
[2019-04-07 20:55] LABS: Urine Bacteria Absent (Absent); Urine Red Blood Cell Trace(0-2/hpf) (Absent); Urine Squamous Epithelial Cell Present (Absent); Urine White Blood Cell 2+(11-20/hpf) (Absent)
[2019-04-07] MEDS ORDERED: Enoxaparin(*) 40 MG/0.4 ML SYR SUBCUT SCH (21:00)
--- NOTE | 2019-04-07 21:18 | HP ---
HISTORY AND PHYSICAL: ADDENDUM: ASSESSMENT AND PLAN: 1. Hyponatremia. The patient has hyponatremia, I suspect that this is from dehydration. She has received 1 L IV fluid bolus. We will continue maintenance fluids overnight and recheck this level in the morning. 2. Elevated creatinine. The patient has a mildly elevated creatinine. It appears she has had this for several months, although there is a slight increase. She may have the beginning seizures of chronic kidney disease. This also may represent an JEROME. The patient has received 1 L fluid bolus and will be continued on maintenance fluids. We will recheck creatinine in the morning. PHILIP PIERCE [id number]/[facility] #: [id number]
--- NOTE | 2019-04-07 21:53 | ED ---
Progress - Progress Note Progress Note: Patient is received as a sign-out from Dr. Wayne to Dr. Stockton at 1900 shift change pending hospitalist consult of patient's case. 2005 - Patient was accepted for admission under night hospitalistDr. Duncan. Admission orders placed at this time. Course/Dx - Course Course Of Treatment: Patient is received as a sign-out from Dr. Wayne to Dr. Stockton at 1900 04/07/19 shift change pending hospitalist consult of patient's case. 2005 - Patient was accepted for admission under night hospitalistDr. Duncan. Admission orders placed at this time. - Diagnoses Provider Diagnoses: Community acquired pneumonia, Sepsis, Urinary retention - Provider Notifications Discussed Care Of Patient With: Lorena Duncan Time Discussed With Above Provider: 20:06 Instructed by Provider To: Other - 2005 - Patient was accepted for admission under night hospitalistDr. Duncan. Admission orders placed at this time. Discharge ED - Sign-Out/Discharge Documenting (check all that apply): Patient Departure - admit All imaging exams completed and their final reports reviewed: Yes - Discharge Plan Condition: Fair Disposition: ADMITTED TO [facility] - Billing Disposition and Condition Condition: FAIR Disposition: Admitted to [facility] - Attestation Statements Document Initiated by Princess: Yes Documenting Daianaibmirian: DEANNA GRIFFIN Provider For Whom Princess is Documenting (Include Credential): DELFINO STOCKTON MD Scribmirian Attestation: DEANNA Tirplett scribed for DELFINO STOCKTON MD on 04/08/19 at 0420. Scribe Documentation Reviewed: Yes Provider Attestation: The documentation as recorded by the DEANNA riddle accurately reflects the service I personally performed and the decisions made by , DELFINO STOCKTON MD Status of Scribmirian Document: Viewed
--- NOTE | 2019-04-07 22:37 | HP ---
ADDENDUM NOW INCLUDED ON THIS REPORT CC: Demario Duff MD; Bonifacio Carreno MD; Nguyễn Loza MD * HISTORY AND PHYSICAL: DATE OF ADMISSION: 04/07/19 PRIMARY CARE PROVIDER: Demario Duff MD OTHER PROVIDERS: Bonifacio Carreno MD; Nguyễn Loza MD ATTENDING PHYSICIAN: Lorena Duncan MD * (dictated by PHILIP Reagan). CHIEF COMPLAINT: 1. "I'm exhausted." 2. Productive cough x10 days. HISTORY OF PRESENT ILLNESS: Ms. 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 She notes that she has been diagnosed with pneumonia and was on an antibiotic for 3 days, but is unsure of what antibiotic. She then went to see her primary care provider who switched her to Levaquin and she is on day 4 of Levaquin right now with little to no improvement reportedly. She continues to have a productive cough and general malaise. She also complains of sore throat and diarrhea of approximately 1 episode per day. She complains of urinary retention stating she has not gone in few hours and she feels suprapubic discomfort and pressure. She does state that she has discomfort with urinating, stating "there may be a little burn" with urination and again is retaining without frequency or urgency at this time. In the ER, the patient received a full workup. Blood work revealed a mild leukocytosis, anemia, hyponatremia, and mild JEROME. Chest x-ray shows possible right upper lobe pneumonia. The patient was given 1 L of fluid bolus, azithromycin, and ceftriaxone. The hospitalist team was asked to evaluate the patient for admission. PAST MEDICAL HISTORY: 1. COPD. 2. Asthma. 3. Hyperlipidemia. 4. Bilateral breast cancer, status post mastectomy, on anastrozole. 5. CVA without residual effects. PAST SURGICAL HISTORY: Right kidney stent, left total hip arthroplasty, C- section, hysterectomy, adhesions, history of Menetrier's disease with partial gastric surgery, bilateral mastectomy. HOME MEDICATIONS: 1. Anastrozole 1 mg p.o. daily. 2. Clobetasol 0.05% topical ointment 1 application topically b.i.d. p.r.n. 3. Clopidogrel 75 mg p.o. daily. 4. Clotrimazole/betamethasone 1 application topically b.i.d. 5. Fluticasone nasal spray 2 sprays to both nares daily. 6. Advair Diskus 250/50 one puff inhalation b.i.d. 7. Atrovent 0.5 mg neb inhalation q.i.d. p.r.n. 8. Montelukast 10 mg p.o. daily. 9. Simvastatin 40 mg p.o. daily. 10. Theophylline 300 mg p.o. b.i.d. DRUG ALLERGIES: MERCURY, angioedema; SALICYLATES, joint pain; SULFA, joint pain ; ENVIRONMENTAL/SEASONAL, congestion, asthma. FAMILY HISTORY: Mother had CAD with bypass, also had breast cancer. Father has lung cancer. The patient has a son with non-Hodgkin's lymphoma. No family history of diabetes mellitus or CVA. SOCIAL HISTORY: The patient quit using tobacco in 1982, prior to that she smoked for approximately 17 years, 1 pack per day. She does not use alcohol. She is . She had 3 children, 1 son was killed by a drunk driver license technician, 1 son has non- Hodgkin's lymphoma, and the other son is healthy. In the event that she is unable to make her own medical decisions, she has appointed her , Paulie De La Cruz to be her surrogate decision maker. REVIEW OF SYSTEMS: A 14-point review of systems has been performed and all the pertinent positives and negatives are in the HPI. All other systems are negative. PHYSICAL EXAMINATION GENERAL: Ms. De La Cruz is a well-developed, well-nourished, older white female who is sitting up in bed. She appears to be in no acute distress. She is pleasant and cooperative. VITAL SIGNS: Temperature 99.3 temporal, heart rate 65, respiratory rate 16, oxygen saturation 97% on room air, blood pressure 113/55. HEENT: PERRL. EOMI. Visual bryant grossly intact. Nonicteric sclerae. Hearing is grossly intact. Oral mucous membranes are mildly dry. The posterior pharynx is clear without erythema, exudates, or drainage. Tongue is at midline. Palate elevates symmetrically. PULMONARY: Symmetrical chest expansion without use of accessory muscles. There is diffuse end-expiratory wheezing throughout without rales or rhonchi. No digital clubbing or cyanosis. CARDIOVASCULAR: Regular rate and rhythm. S1, S2 present. No murmurs, rubs, clicks, or gallops. There is trace bilateral lower extremity edema. ABDOMEN: Flat. Bowel sounds in all quadrants. Suprapubic tenderness to palpation with palpable bladder. Otherwise nontender. Negative CVA tenderness. MUSCULOSKELETAL: 5/5 strength bilaterally in upper and lower extremities. NEURO: The patient is awake. She is alert and oriented x3. Cranial nerves II through XII are grossly intact. She is able to move all of her extremities. Her motor strength is 5/5 bilaterally in upper and lower extremities. DIAGNOSTIC STUDIES/LAB DATA: WBC 10.9, Hgb 11, HCT 32. Sodium 129, creatinine 1.03, calcium 7.8. CRP 163.75. TSH 1.82. Lactic acid 1.0. Theophylline less than 2.7. Chest x-ray, impression: Possible right upper lung pneumonia with bronchiectatic dilatation, please correlate to surgical history as this corresponds to surgical clips as well. ASSESSMENT AND PLAN: Ms. De La Cruz is a 78-year-old female with past medical history of chronic obstructive pulmonary disease, asthma, bilateral breast cancer, status post mastectomy, who presented to the ER today with complaints of productive cough, fever, general malaise, and was found to have a possible right upper lobe infiltrate on chest x- ray. The patient will be admitted for: 1. Cough, fever, general malaise. The patient presents with these symptoms with a T-max of 102.5. She has been treated with 2 courses of antibiotics. She is unsure of the first course but the second course was 4 days of levofloxacin. She did not complete this course instead she came to the ER for further recommendations. She will be admitted for possible pneumonia. A urine for Legionella and Streptococcus pneumoniae have been ordered. A sputum culture has been ordered. She will be started on ceftriaxone and azithromycin. A flu test will be obtained. 2. Urinary retention. The patient complains of urinary retention and has a palpable bladder at this time. A renal bladder ultrasound has been ordered. A Biswas will be placed. Urine will be sent for urinalysis and culture. 3. Hyponatremia. The patient has hyponatremia, I suspect that this is from dehydration. She has received 1 L IV fluid bolus. We will continue maintenance fluids overnight and recheck this level in the morning. 4. Elevated creatinine. The patient has a mildly elevated creatinine. It appears she has had this for several months, although there is a slight increase. She may have early chronic kidney disease. This may represent an JEROME. The patient has received 1 L fluid bolus and will be continued on maintenance fluids. We will recheck creatinine in the morning. 5. Chronic obstructive pulmonary disease/asthma. The patient does have end- expiratory wheezing but does not appear to be in chronic obstructive pulmonary disease exacerbation at this time. She states that she has recently finished a 5- day course of prednisone, which she completed yesterday. I do not think there is any need for further steroid medication at this time. She will continue her home Advair with DuoNebs as needed. 6. Hyperlipidemia. Continue atorvastatin 7. History of cerebrovascular accident. Continue clopidogrel. 8. DVT prophylaxis. According to DVT Risk Assessment, the patient scores 4 placing her at high risk. She will be started on enoxaparin. 9. Code status. Full code. TIME SPENT: Approximately 60 minutes were spent on this admission, greater than half of that time was spent [id number] with the patient obtaining history , performing physical, and reviewing the plan of care. The case has been reviewed with my attending, Dr. Duncan, who is in agreement with the plan of care. PHILIP PIERCE
[2019-04-08] MEDS: NS 0.9% 1000 ML** 1,000 ML IV SCH ×2 (01:21→18:05)
[2019-04-08] MEDS: Clotrimazole/Betamethasone CREAM* 15 GM TOPICAL SCH ×3 (01:43→21:52)
[2019-04-08] MEDS: Theophylline TAB* 300 MG PO SCH ×3 (01:44→21:48)
[2019-04-08 02:54] LABS: Influenza A Molecular NEGATIVE (Negative); Influenza B Molecular NEGATIVE (Negative)
[2019-04-08 05:49] LABS: ABS Eosinophils 0.1 10^3/ul (0-0.6); ABS Lymphocytes 0.7 10^3/ul (1.0-4.8); ABS Monocytes 1.4 10^3/ul (0-0.8); ABS Neutrophils 6.8 10^3/ul (1.5-7.7); Eosinophil % 0.8 %; Hematocrit 31 % (35-47); Hemoglobin 10.4 g/dL (12.0-16.0); Lymphocyte % 7.6 %; Mean Corpuscular HGB Conc 34 g/dL (31-36); Mean Corpuscular Hemoglobin 30 pg (27-31); Mean Corpuscular Volume 88 fL (80-97); Mean Platelet Volume 7.5 fL (7.4-10.4); Platelet Count 293 10^3/uL (150-450); Red Blood Count 3.48 10^6 /uL (3.70-4.87); Red Cell Distribution Width 14 % (10-15)
[2019-04-08 06:05] LABS: BUN/Creatinine Ratio 15.1 (8-20); Calcium 7.4 mg/dL (8.6-10.3); EGFR Non-African American 63.7 (>60); Potassium 3.4 mmol/L (3.5-5.0)
[2019-04-08] MEDS: Enoxaparin(*) 40 MG/0.4 ML SYR SUBCUT SCH (06:09)
[2019-04-08] MEDS: Mometasone/Formoter 200/5 MDI INH SCH ×3 (07:17→20:04)
[2019-04-08] MEDS: Acetaminophen TAB* 325 MG PO PRN (10:33)
[2019-04-08] MEDS: Clopidogrel TAB* 75 MG PO SCH (10:35)
[2019-04-08] MEDS: Montelukast Sodium TAB* 10 MG PO SCH (10:35)
[2019-04-08] MEDS: Atorvastatin* 20 MG TAB PO SCH (10:35)
[2019-04-08] MEDS: CMCS:Anastrozole (NF) 1 MG TAB PO SCH (10:35)
[2019-04-08] MEDS: Fluticasone NASAL SPRAY 50MCG* 16 gm SPRAY BTL BOTH NARES SCH (10:37)
[2019-04-08] MEDS ORDERED: Potassium Chlor TAB* 20 MEQ TAB.ER PO ONE (15:02)
--- NOTE | 2019-04-08 16:20 | PN ---
Subjective Date of Service: 04/08/19 Interval History: Feels very weak.Still sob. Sig diarrhea. Reports diarrhea preceded being on antibiotics has been on outpt antibiotics for pneumonia Objective Active Medications: Acetaminophen (Tylenol Tab*) 650 mg PO Q4H PRN PRN Reason: mild to moderate pain Last Admin: 04/08/19 10:33 Dose: 650 mg Albuterol/Ipratropium (Duoneb (Albuterol 2.5 Mg/Ipratropium 0.5 Mg)) 1 neb INH Q4H PRN PRN Reason: SOB/WHEEZING Anastrozole (Arimidex (Nf)) 1 mg PO DAILY [facility] Last Admin: 04/08/19 10:35 Dose: 1 mg Atorvastatin Calcium (Lipitor*) 20 mg PO DAILY [facility] Last Admin: 04/08/19 10:35 Dose: 20 mg Betamethasone/Clotrimazole (Lotrisone Cream*) 1 applic TOPICAL BID [facility] Last Admin: 04/08/19 10:39 Dose: 1 applic Clobetasol Propionate (Clobetasol 0.05% Oint*) 1 applic TOPICAL BID PRN PRN Reason: RASH Clopidogrel Bisulfate (Plavix Tab*) 75 mg PO DAILY [facility] Last Admin: 04/08/19 10:35 Dose: 75 mg Enoxaparin Sodium (Lovenox(*)) 40 mg SUBCUT DAILY@0600 [facility] Last Admin: 04/08/19 06:09 Dose: 40 mg Fluticasone Propionate (Flonase Nasal [place] 50mcg*) 2 spray BOTH NARES DAILY [facility] Last Admin: 04/08/19 10:37 Dose: 2 spray Sodium Chloride (Ns 0.9% 1000 Ml) 1,000 mls @ 100 mls/hr IV PER RATE [facility] Last Admin: 04/08/19 01:21 Dose: 100 mls/hr Azithromycin 250 mg/ Sodium (Chloride) 250 mls @ 250 mls/hr IVPB Q24H [facility] Ceftriaxone Sodium 1 gm/ (Sodium Chloride) 50 mls @ 100 mls/hr IVPB Q24H [facility] Mometasone Furoate/Formoterol Fumar (Dulera 200/5 Mdi*) 2 puff INH BID [facility] Last Admin: 04/08/19 08:30 Dose: 2 puff Montelukast Sodium (Singulair Tab*) 10 mg PO DAILY [facility] Last Admin: 04/08/19 10:35 Dose: 10 mg Ondansetron HCl (Zofran Inj*) 4 mg IV Q4H PRN PRN Reason: NAUSEA/VOMITING Theophylline (Lavon Dur*) 300 mg PO BID [facility] Last Admin: 04/08/19 10:33 Dose: 300 mg Vital Signs - 8 hr 04/08/19 04/08/19 08:36 11:00 Temperature 98.6 F Pulse Rate 83 82 Respiratory 18 20 Rate Blood Pressure 88/40 (mmHg) O2 Sat by Pulse 96 96 Oximetry Oxygen Devices in Use Now: None Eyes: No Scleral Icterus Ears/Nose/Mouth/Throat: NL Teeth, Lips, Gums Neck: NL Appearance and Movements; NL JVP Respiratory: Symmetrical Chest Expansion and Respiratory Effort, - - bronchial breath sounds Cardiovascular: NL Sounds; No Murmurs; No JVD Abdominal: NL Sounds; No Tenderness; No Distention Extremities: No Edema Neurological: Alert and Oriented x 3 Result Diagrams: 04/08/19 05:29 04/08/19 05:29 Microbiology and Other Data: Microbiology 04/07/19 20:20 Legionella Urinary Antigen - Final Urine Negative Legionella Antigen Streptococcus pneumoniae Ag Screen - Final Negative S. pneumo Antigen Assess/Plan/Problems-Billing Assessment: - Patient Problems (1) Pneumonia Current Visit: Yes Status: Acute Code(s): J18.9 - PNEUMONIA, UNSPECIFIED ORGANISM SNOMED Code(s): 465217595 Comment: RUL pneumonia on CXR Failed outpt antibiotics Continue ceftriaxone azithromycin for now H/o breast cancer and unresolving sob.Will get a CT with IV contrast to r/o malignancy (2) Diarrhea Current Visit: Yes Status: Acute Code(s): R19.7 - DIARRHEA, UNSPECIFIED SNOMED Code(s): 38355968 Comment: Reports that it preceeded outpt antibiotics Wiped out Will get stool studies and consider adding imaging of the abd as well to r/o colitis pt reports worsening condition over the last 2 weeks has already had 3+ loose bm will r/o c diff and check stool studies inc rota virus (3) Hyponatremia Current Visit: Yes Status: Acute Code(s): E87.1 - HYPO-OSMOLALITY AND HYPONATREMIA SNOMED Code(s): 77657534 Comment: continue ivf ct to r/o lung malignancy and paraneoplastic/siadh check urine serum osm and uric acid (4) Hypokalemia Current Visit: Yes Status: Acute Code(s): E87.6 - HYPOKALEMIA SNOMED Code( s): 03773650 Comment: sec gi loss replace (5) Urinary retention Current Visit: Yes Status: Acute Code(s): R33.9 - RETENTION OF URINE, UNSPECIFIED SNOMED Code(s): 486421157 Comment: possible uti f/u culture continue ceftriaxone loera for now consider voiding trial in am sees urology as outpt ?urethral stricture has had stents with dr saini before
[2019-04-08] MEDS ORDERED: Iodixanol* (CONTRAST) 320 MG/ML 100 ML SDV IV ONE (16:52)
[2019-04-08 17:10] LABS: Urine Appearance Clear; Urine Bilirubin Negative (Negative); Urine Blood 2+ (Negative); Urine Color Yellow; Urine Glucose Negative (Negative); Urine Ketones Negative (Negative); Urine Nitrite Negative (Negative); Urine Protein Negative (Negative); Urine Specific Gravity 1.011 (1.010-1.030); Urine Urobilinogen Negative (Negative)
[2019-04-08 17:15] LABS: Urine Bacteria Absent (Absent); Urine Red Blood Cell 3+(>10/hpf) (Absent); Urine Squamous Epithelial Cell Present (Absent); Urine White Blood Cell Trace(0-5/hpf) (Absent)
[2019-04-08] MEDS ORDERED: cefTRIAXone(*) 1 GM in NS 0.9% 50 ML* 50 ML IVPB SCH (19:30)
[2019-04-08] MEDS ORDERED: VANCOMYCIN PO SOLN* 125 MG/5ML 25 MG/ML PO SCH (21:00)
[2019-04-08] MEDS ORDERED: Azithromycin IV(*) 250 MG in NS 0.9% 250 ML* 250 ML IVPB SCH (21:00)
[2019-04-08] MEDS: Vancomycin CAP* 250 MG CAP PO SCH (21:47)
[2019-04-09] MEDS: NS 0.9% 1000 ML** 1,000 ML IV SCH ×2 (04:17→17:15)
[2019-04-09] MEDS: Enoxaparin(*) 40 MG/0.4 ML SYR SUBCUT SCH (05:59)
[2019-04-09 06:48] LABS: ABS Lymphocytes 0.6 10^3/ul (1.0-4.8); ABS Monocytes 1.3 10^3/ul (0-0.8); Eosinophil % 0.4 %; Hematocrit 32 % (35-47); Hemoglobin 10.7 g/dL (12.0-16.0); Lymphocyte % 5.6 %; Mean Corpuscular HGB Conc 33 g/dL (31-36); Mean Corpuscular Hemoglobin 30 pg (27-31); Mean Corpuscular Volume 90 fL (80-97); Mean Platelet Volume 7.7 fL (7.4-10.4); Platelet Count 328 10^3/uL (150-450); Red Blood Count 3.57 10^6 /uL (3.70-4.87); Red Cell Distribution Width 14 % (10-15); White Blood Count 11.1 10^3/uL (3.5-10.8)
[2019-04-09 06:57] LABS: BUN/Creatinine Ratio 13.6 (8-20); Calcium 7.6 mg/dL (8.6-10.3); EGFR African American 82.5 (>60); EGFR Non-African American 68.2 (>60); Potassium 3.5 mmol/L (3.5-5.0)
[2019-04-09] MEDS: Mometasone/Formoter 200/5 MDI INH SCH ×2 (07:38→20:31)
[2019-04-09] MEDS: Clopidogrel TAB* 75 MG PO SCH (08:33)
[2019-04-09] MEDS: Atorvastatin* 20 MG TAB PO SCH (08:33)
[2019-04-09] MEDS: Montelukast Sodium TAB* 10 MG PO SCH (08:33)
[2019-04-09] MEDS: Vancomycin CAP* 250 MG CAP PO SCH ×4 (08:33→20:14)
[2019-04-09] MEDS: Clotrimazole/Betamethasone CREAM* 15 GM TOPICAL SCH ×2 (08:34→20:16)
[2019-04-09] MEDS: Theophylline TAB* 300 MG PO SCH ×2 (08:34→20:14)
[2019-04-09] MEDS: CMCS:Anastrozole (NF) 1 MG TAB PO SCH (08:34)
[2019-04-09] MEDS: Fluticasone NASAL SPRAY 50MCG* 16 gm SPRAY BTL BOTH NARES SCH (08:37)
--- NOTE | 2019-04-09 17:05 | PN ---
Subjective Date of Service: 04/09/19 Interval History: Pt is feeling a little better today. She continues to have diarrhea, especially after eating lunch. She has only had 3-4 BMs today. Yesterday 3-4 BMs. She denies abdominal pain at this time but this AM it was reported she was uncomfortable. Her breathing is comfortable. She is coughing on occasion. No significant sputum. Objective Active Medications: Acetaminophen (Tylenol Tab*) 650 mg PO Q4H PRN PRN Reason: mild to moderate pain Last Admin: 04/08/19 10:33 Dose: 650 mg Albuterol/Ipratropium (Duoneb (Albuterol 2.5 Mg/Ipratropium 0.5 Mg)) 1 neb INH Q4H PRN PRN Reason: SOB/WHEEZING Anastrozole (Arimidex (Nf)) 1 mg PO DAILY [facility] Last Admin: 04/09/19 08:34 Dose: 1 mg Atorvastatin Calcium (Lipitor*) 20 mg PO DAILY [facility] Last Admin: 04/09/19 08:33 Dose: 20 mg Betamethasone/Clotrimazole (Lotrisone Cream*) 1 applic TOPICAL BID [facility] Last Admin: 04/09/19 08:34 Dose: Not Given Clobetasol Propionate (Clobetasol 0.05% Oint*) 1 applic TOPICAL BID PRN PRN Reason: RASH Clopidogrel Bisulfate (Plavix Tab*) 75 mg PO DAILY [facility] Last Admin: 04/09/19 08:33 Dose: 75 mg Enoxaparin Sodium (Lovenox(*)) 40 mg SUBCUT DAILY@0600 [facility] Last Admin: 04/09/19 05:59 Dose: 40 mg Fluticasone Propionate (Flonase Nasal [place] 50mcg*) 2 spray BOTH NARES DAILY [facility] Last Admin: 04/09/19 08:37 Dose: Not Given Sodium Chloride (Ns 0.9% 1000 Ml) 1,000 mls @ 100 mls/hr IV PER RATE [facility] Last Admin: 04/09/19 04:17 Dose: 100 mls/hr Azithromycin 250 mg/ Sodium (Chloride) 250 mls @ 250 mls/hr IVPB Q24H [facility] Last Admin: 04/08/19 22:16 Dose: 250 mls/hr Ceftriaxone Sodium 1 gm/ (Sodium Chloride) 50 mls @ 100 mls/hr IVPB Q24H [facility] Last Admin: 04/08/19 20:20 Dose: 100 mls/hr Mometasone Furoate/Formoterol Fumar (Dulera 200/5 Mdi*) 2 puff INH BID [facility] Last Admin: 04/09/19 07:38 Dose: 2 puff Montelukast Sodium (Singulair Tab*) 10 mg PO DAILY [facility] Last Admin: 04/09/19 08:33 Dose: 10 mg Ondansetron HCl (Zofran Inj*) 4 mg IV Q4H PRN PRN Reason: NAUSEA/VOMITING Last Admin: 04/09/19 06:41 Dose: 4 mg Theophylline (Lavon Dur*) 300 mg PO BID [facility] Last Admin: 04/09/19 08:34 Dose: 300 mg Vancomycin HCl (Vancomycin Cap*) 250 mg PO QID [facility] Last Admin: 04/09/19 13:53 Dose: 250 mg Vital Signs - 8 hr 04/09/19 12:00 Temperature 98.7 F Pulse Rate 82 Respiratory 18 Rate Blood Pressure 104/46 (mmHg) O2 Sat by Pulse 99 Oximetry Oxygen Devices in Use Now: None Appearance: Elderly female sitting up in bed, NAD Eyes: No Scleral Icterus Ears/Nose/Mouth/Throat: Mucous Membranes Moist Respiratory: Symmetrical Chest Expansion and Respiratory Effort, Clear to Auscultation Cardiovascular: NL Sounds; No Murmurs; No JVD, RRR, No Edema Abdominal: - - BS hyperactive, soft, moderately distended. Extremities: No Clubbing, Cyanosis Skin: No Nodules or Sclerosis Neurological: Alert and Oriented x 3 Result Diagrams: 04/09/19 06:27 04/09/19 06:27 Microbiology and Other Data: Microbiology 04/07/19 20:20 Legionella Urinary Antigen - Final Urine Negative Legionella Antigen Streptococcus pneumoniae Ag Screen - Final Negative S. pneumo Antigen Assess/Plan/Problems-Billing Ms De La Cruz is a 78 yo F who has a h/o COPD and HLD who presented to the ER with c/ o productive cough and feeling exhausted and was ultimately identified to have c difficile colitis. - Patient Problems (1) Diarrhea Current Visit: Yes Status: Acute Code(s): R19.7 - DIARRHEA, UNSPECIFIED SNOMED Code(s): 73903475 Comment: Pt reports that it preceeded outpt antibiotic usage though she is not the clearest historian. C diff is positive. She has been started on vancomycin orally. Will continue vancomycin. CT abd/pelvis shows mild barrios colitis and liquid filled colon. If no better tomorrow will likely request ID consult. (2) Pneumonia Current Visit: Yes Status: Acute Code(s): J18.9 - PNEUMONIA, UNSPECIFIED ORGANISM SNOMED Code(s): 863932278 Comment: I believe the patient was likely adequately treated as an outpatient but continued to have coughing secondary to inflammation. She most recently had 7 days of outpatient Abx (initially azithromycin 3days then levaquin 4 days). Stop ceftriaxone and azithromycin. She has been afebrile since in the hospital. Monitor for symtpoms. (3) Urinary retention Current Visit: Yes Status: Acute Code(s): R33.9 - RETENTION OF URINE, UNSPECIFIED SNOMED Code(s): 409754215 Comment: In ER pt had pelvic pressure and distended bladder. Loera placed. Will trial loera removal this afternoon. No evidence of UTI. (4) COPD (chronic obstructive pulmonary disease) Current Visit: Yes Status: Acute Code(s): J44.9 - CHRONIC OBSTRUCTIVE PULMONARY DISEASE, UNSPECIFIED SNOMED Code(s): 71823251 Comment: No signs of exacerbation at this time. Continue singulair, theophylline, dulera and duonebs. (5) Hypokalemia Current Visit: Yes Status: Acute Code(s): E87.6 - HYPOKALEMIA SNOMED Code( s): 10256828 Comment: Secondary to GI losses, will replete as needed. (6) Hyponatremia Current Visit: Yes Status: Acute Code(s): E87.1 - HYPO-OSMOLALITY AND HYPONATREMIA SNOMED Code(s): 49068854 Comment: Improving. Likely secondary to pneumonia/volume loss. (7) CVA (cerebral vascular accident) Current Visit: Yes Status: Suspected Onset Date: 05/08/14 Code(s): I63.9 - CEREBRAL INFARCTION, UNSPECIFIED SNOMED Code(s): 773463387 Comment: Pt had a CVA in the past without any residual deficits. Will continue plavix and lipitor. (8) DVT prophylaxis Current Visit: Yes Status: Acute Onset Date: 05/08/14 Code(s): YLG9253 - SNOMED Code(s): 714519472 Comment: Chitra (9) Full code status Current Visit: Yes Status: Acute Code(s): Z78.9 - OTHER SPECIFIED HEALTH STATUS SNOMED Code(s): 459907032
[2019-04-10] MEDS: NS 0.9% 1000 ML** 1,000 ML IV SCH (02:22)
[2019-04-10] MEDS: Enoxaparin(*) 40 MG/0.4 ML SYR SUBCUT SCH (05:26)
[2019-04-10 07:03] LABS: ABS Eosinophils 0.1 10^3/ul (0-0.6); ABS Lymphocytes 0.7 10^3/ul (1.0-4.8); ABS Monocytes 1.1 10^3/ul (0-0.8); ABS Neutrophils 7.1 10^3/ul (1.5-7.7); Eosinophil % 1.4 %; Hematocrit 29 % (35-47); Hemoglobin 9.8 g/dL (12.0-16.0); Lymphocyte % 7.5 %; Mean Corpuscular HGB Conc 34 g/dL (31-36); Mean Corpuscular Hemoglobin 30 pg (27-31); Mean Corpuscular Volume 89 fL (80-97); Mean Platelet Volume 7.4 fL (7.4-10.4); Platelet Count 329 10^3/uL (150-450); Red Blood Count 3.23 10^6 /uL (3.70-4.87); Red Cell Distribution Width 14 % (10-15); White Blood Count 9.1 10^3/uL (3.5-10.8)
[2019-04-10 07:18] LABS: BUN/Creatinine Ratio 13.5 (8-20); Calcium 7.5 mg/dL (8.6-10.3); EGFR African American 91.6 (>60); EGFR Non-African American 75.7 (>60); Potassium 3.5 mmol/L (3.5-5.0)
[2019-04-10] MEDS: Mometasone/Formoter 200/5 MDI INH SCH ×2 (08:09→20:06)
[2019-04-10] MEDS: Fluticasone NASAL SPRAY 50MCG* 16 gm SPRAY BTL BOTH NARES SCH (08:37)
[2019-04-10] MEDS: Vancomycin CAP* 250 MG CAP PO SCH ×4 (08:38→21:32)
[2019-04-10] MEDS: Montelukast Sodium TAB* 10 MG PO SCH (08:38)
[2019-04-10] MEDS: Theophylline TAB* 300 MG PO SCH ×2 (08:38→21:32)
[2019-04-10] MEDS: Atorvastatin* 20 MG TAB PO SCH (08:38)
[2019-04-10] MEDS: CMCS:Anastrozole (NF) 1 MG TAB PO SCH (08:38)
[2019-04-10] MEDS: Clopidogrel TAB* 75 MG PO SCH (08:38)
[2019-04-10] MEDS: Clotrimazole/Betamethasone CREAM* 15 GM TOPICAL SCH ×2 (08:39→21:32)
[2019-04-10] MEDS: Acetaminophen TAB* 325 MG PO PRN (12:05)
[2019-04-10 13:34] LABS: Hepatitis B Surface Antigen Nonreactive (Nonreactive)
[2019-04-10 13:51] LABS: Hepatitis C Antibody Negative (Negative)
--- NOTE | 2019-04-10 15:49 | PN ---
Subjective Date of Service: 04/10/19 Interval History: Pt is feeling ok today. She states she had a very large liquid bowel movement this morning after breakfast. She otherwise has not had any other stools today. She does state she had soft semi formed stool last evening. She denies any pain. She still feels very distended. No SOB. Objective Active Medications: Acetaminophen (Tylenol Tab*) 650 mg PO Q4H PRN PRN Reason: mild to moderate pain Last Admin: 04/10/19 12:05 Dose: 650 mg Albuterol/Ipratropium (Duoneb (Albuterol 2.5 Mg/Ipratropium 0.5 Mg)) 1 neb INH Q4H PRN PRN Reason: SOB/WHEEZING Anastrozole (Arimidex (Nf)) 1 mg PO DAILY [facility] Last Admin: 04/10/19 08:38 Dose: 1 mg Atorvastatin Calcium (Lipitor*) 20 mg PO DAILY [facility] Last Admin: 04/10/19 08:38 Dose: 20 mg Betamethasone/Clotrimazole (Lotrisone Cream*) 1 applic TOPICAL BID [facility] Last Admin: 04/10/19 08:39 Dose: Not Given Clobetasol Propionate (Clobetasol 0.05% Oint*) 1 applic TOPICAL BID PRN PRN Reason: RASH Clopidogrel Bisulfate (Plavix Tab*) 75 mg PO DAILY [facility] Last Admin: 04/10/19 08:38 Dose: 75 mg Enoxaparin Sodium (Lovenox(*)) 40 mg SUBCUT DAILY@0600 [facility] Last Admin: 04/10/19 05:26 Dose: 40 mg Fluticasone Propionate (Flonase Nasal [place] 50mcg*) 2 spray BOTH NARES DAILY [facility] Last Admin: 04/10/19 08:37 Dose: 2 spray Sodium Chloride (Ns 0.9% 1000 Ml) 1,000 mls @ 100 mls/hr IV PER RATE [facility] Last Admin: 04/10/19 02:22 Dose: 100 mls/hr Mometasone Furoate/Formoterol Fumar (Dulera 200/5 Mdi*) 2 puff INH BID [facility] Last Admin: 04/10/19 08:09 Dose: 2 puff Montelukast Sodium (Singulair Tab*) 10 mg PO DAILY [facility] Last Admin: 04/10/19 08:38 Dose: 10 mg Ondansetron HCl (Zofran Inj*) 4 mg IV Q4H PRN PRN Reason: NAUSEA/VOMITING Last Admin: 04/09/19 06:41 Dose: 4 mg Theophylline (Lavon Dur*) 300 mg PO BID [facility] Last Admin: 04/10/19 08:38 Dose: 300 mg Vancomycin HCl (Vancomycin Cap*) 250 mg PO QID [facility] Last Admin: 04/10/19 13:01 Dose: 250 mg Vital Signs - 8 hr 04/10/19 04/10/19 04/10/19 08:00 08:26 12:00 Temperature 98.4 F Pulse Rate 79 84 Respiratory 18 15 18 Rate Blood Pressure 104/61 (mmHg) O2 Sat by Pulse 98 100 Oximetry Oxygen Devices in Use Now: None Appearance: Elderly female sitting up in bed, NAD Eyes: No Scleral Icterus Ears/Nose/Mouth/Throat: Mucous Membranes Moist Respiratory: Symmetrical Chest Expansion and Respiratory Effort, Clear to Auscultation Cardiovascular: NL Sounds; No Murmurs; No JVD, RRR, - - 1-2+ LE edema Abdominal: - - BS+ soft, NT, moderately distended Extremities: No Clubbing, Cyanosis Skin: No Nodules or Sclerosis Neurological: Alert and Oriented x 3 Result Diagrams: 04/10/19 06:23 04/10/19 06:23 Microbiology and Other Data: Microbiology 04/07/19 20:20 Legionella Urinary Antigen - Final Urine Negative Legionella Antigen Streptococcus pneumoniae Ag Screen - Final Negative S. pneumo Antigen Assess/Plan/Problems-Billing Ms De La Cruz is a 78 yo F who has a h/o COPD and HLD who presented to the ER with c/ o productive cough and feeling exhausted and was ultimately identified to have c difficile colitis. - Patient Problems (1) Diarrhea Current Visit: Yes Status: Acute Code(s): R19.7 - DIARRHEA, UNSPECIFIED SNOMED Code(s): 22062069 Comment: Pt reports that it preceeded outpt antibiotic usage though she is not the clearest historian. C diff is positive. She has been started on vancomycin orally, she continues to have diarrhea. Today she states her diarrhea is less frequent than it has been. Will continue vancomycin. CT abd/ pelvis shows mild barrios colitis and liquid filled colon. Maybe slightly better today. Will follow up tomorrow and if still having liquid stool will ask for ID consult and possible GI consult. (2) Pneumonia Current Visit: Yes Status: Acute Code(s): J18.9 - PNEUMONIA, UNSPECIFIED ORGANISM SNOMED Code(s): 618515659 Comment: I believe the patient was likely adequately treated as an outpatient but continued to have coughing secondary to inflammation. She most recently had 7 days of outpatient Abx (initially azithromycin 3days then levaquin 4 days). She has been afebrile since in the hospital. Monitor for symtpoms. (3) Urinary retention Current Visit: Yes Status: Acute Code(s): R33.9 - RETENTION OF URINE, UNSPECIFIED SNOMED Code(s): 518717193 Comment: Biswas removed and pt voiding without difficult. (4) COPD (chronic obstructive pulmonary disease) Current Visit: Yes Status: Acute Code(s): J44.9 - CHRONIC OBSTRUCTIVE PULMONARY DISEASE, UNSPECIFIED SNOMED Code(s): 52306421 Comment: No signs of exacerbation at this time. Continue singulair, theophylline, dulera and duonebs. (5) Hypokalemia Current Visit: Yes Status: Acute Code(s): E87.6 - HYPOKALEMIA SNOMED Code( s): 08816403 Comment: Secondary to GI losses, will replete as needed. (6) Hyponatremia Current Visit: Yes Status: Acute Code(s): E87.1 - HYPO-OSMOLALITY AND HYPONATREMIA SNOMED Code(s): 51211281 Comment: Improving. Likely secondary to pneumonia/volume loss. (7) CVA (cerebral vascular accident) Current Visit: Yes Status: Suspected Onset Date: 05/08/14 Code(s): I63.9 - CEREBRAL INFARCTION, UNSPECIFIED SNOMED Code(s): 306747068 Comment: Pt had a CVA in the past without any residual deficits. Will continue plavix and lipitor. (8) DVT prophylaxis Current Visit: Yes Status: Acute Onset Date: 05/08/14 Code(s): HRA8222 - SNOMED Code(s): 581740777 Comment: Lovenox (9) Full code status Current Visit: Yes Status: Acute Code(s): Z78.9 - OTHER SPECIFIED HEALTH STATUS SNOMED Code(s): 201645678
[2019-04-10 16:10] LABS: HIV 4th Generation Nonreactive (Nonreactive)
[2019-04-11] MEDS ORDERED: Calcium Carbonate CHEW TAB* 500 MG (TUMS) PO PRN (05:42)
[2019-04-11] MEDS: Enoxaparin(*) 40 MG/0.4 ML SYR SUBCUT SCH (05:49)
[2019-04-11] MEDS: Mometasone/Formoter 200/5 MDI INH SCH ×2 (08:51→19:38)
[2019-04-11] MEDS: Montelukast Sodium TAB* 10 MG PO SCH (09:59)
[2019-04-11] MEDS: Atorvastatin* 20 MG TAB PO SCH (10:00)
[2019-04-11] MEDS: Clopidogrel TAB* 75 MG PO SCH (10:00)
[2019-04-11] MEDS: Fluticasone NASAL SPRAY 50MCG* 16 gm SPRAY BTL BOTH NARES SCH (10:01)
[2019-04-11] MEDS: Theophylline TAB* 300 MG PO SCH ×2 (10:01→22:09)
[2019-04-11] MEDS: CMCS:Anastrozole (NF) 1 MG TAB PO SCH (10:01)
[2019-04-11] MEDS: Clotrimazole/Betamethasone CREAM* 15 GM TOPICAL SCH ×2 (10:02→22:09)
[2019-04-11] MEDS: Pantoprazole TAB * 40 MG TAB PO SCH (10:31)
[2019-04-11] MEDS: Vancomycin CAP* 250 MG CAP PO SCH ×4 (10:31→22:10)
--- NOTE | 2019-04-11 13:11 | PN ---
Subjective Date of Service: 04/11/19 Interval History: Pt is feeling better today. She had her first formed stool today. She does state it hurt to go. She is still bloated. She states she is voiding small amounts of urine but thinks the volume is increasing. Objective Active Medications: Acetaminophen (Tylenol Tab*) 650 mg PO Q4H PRN PRN Reason: mild to moderate pain Last Admin: 04/10/19 12:05 Dose: 650 mg Albuterol/Ipratropium (Duoneb (Albuterol 2.5 Mg/Ipratropium 0.5 Mg)) 1 neb INH Q4H PRN PRN Reason: SOB/WHEEZING Anastrozole (Arimidex (Nf)) 1 mg PO DAILY [facility] Last Admin: 04/11/19 10:01 Dose: 1 mg Atorvastatin Calcium (Lipitor*) 20 mg PO DAILY [facility] Last Admin: 04/11/19 10:00 Dose: 20 mg Betamethasone/Clotrimazole (Lotrisone Cream*) 1 applic TOPICAL BID [facility] Last Admin: 04/11/19 10:02 Dose: Not Given Calcium Carbonate (Tums*) 1,000 mg PO Q8H PRN PRN Reason: INDIGESTION Last Admin: 04/11/19 05:48 Dose: 1,000 mg Clobetasol Propionate (Clobetasol 0.05% Oint*) 1 applic TOPICAL BID PRN PRN Reason: RASH Clopidogrel Bisulfate (Plavix Tab*) 75 mg PO DAILY [facility] Last Admin: 04/11/19 10:00 Dose: 75 mg Enoxaparin Sodium (Lovenox(*)) 40 mg SUBCUT DAILY@0600 [facility] Last Admin: 04/11/19 05:49 Dose: 40 mg Fluticasone Propionate (Flonase Nasal [place] 50mcg*) 2 spray BOTH NARES DAILY [facility] Last Admin: 04/11/19 10:01 Dose: 2 spray Sodium Chloride (Ns 0.9% 1000 Ml) 1,000 mls @ 100 mls/hr IV PER RATE [facility] Last Admin: 04/10/19 02:22 Dose: 100 mls/hr Mometasone Furoate/Formoterol Fumar (Dulera 200/5 Mdi*) 2 puff INH BID [facility] Last Admin: 04/11/19 08:51 Dose: 2 puff Montelukast Sodium (Singulair Tab*) 10 mg PO DAILY [facility] Last Admin: 04/11/19 09:59 Dose: 10 mg Ondansetron HCl (Zofran Inj*) 4 mg IV Q4H PRN PRN Reason: NAUSEA/VOMITING Last Admin: 04/09/19 06:41 Dose: 4 mg Pantoprazole Sodium (Protonix Tab*) 40 mg PO DAILY [facility] Last Admin: 04/11/19 10:31 Dose: 40 mg Theophylline (Lavon Dur*) 300 mg PO BID [facility] Last Admin: 04/11/19 10:01 Dose: 300 mg Vancomycin HCl (Vancomycin Cap*) 250 mg PO QID [facility] Last Admin: 04/11/19 10:31 Dose: 250 mg Vital Signs - 8 hr 04/11/19 04/11/19 04/11/19 08:00 08:56 11:24 Temperature 98.2 F 98.3 F Pulse Rate 71 75 70 Respiratory 20 15 20 Rate Blood Pressure 104/65 97/58 (mmHg) O2 Sat by Pulse 98 98 100 Oximetry Oxygen Devices in Use Now: None Appearance: Elderly female sitting on the edge of the bed, eating lunch, NAD Eyes: No Scleral Icterus Ears/Nose/Mouth/Throat: Mucous Membranes Moist Respiratory: Symmetrical Chest Expansion and Respiratory Effort, Clear to Auscultation Cardiovascular: NL Sounds; No Murmurs; No JVD, RRR, - - 1+ B/L LE edema Abdominal: - - BS+ soft, NT, moderately distended Extremities: No Clubbing, Cyanosis Skin: No Nodules or Sclerosis Neurological: Alert and Oriented x 3 Result Diagrams: 04/10/19 06:23 04/10/19 06:23 Microbiology and Other Data: Microbiology 04/07/19 20:20 Legionella Urinary Antigen - Final Urine Negative Legionella Antigen Streptococcus pneumoniae Ag Screen - Final Negative S. pneumo Antigen Assess/Plan/Problems-Billing Ms De La Cruz is a 78 yo F who has a h/o COPD and HLD who presented to the ER with c/ o productive cough and feeling exhausted and was ultimately identified to have c difficile colitis. - Patient Problems (1) Diarrhea Current Visit: Yes Status: Acute Code(s): R19.7 - DIARRHEA, UNSPECIFIED SNOMED Code(s): 38198308 Comment: Continue treatment for Cdiff. Appreciate ID input. Will get AXR to eval for ileus given degree of dilation. I am encouraged by the fact that she finally had a formed stool today. Possibly home tomorrow if continued improvement. (2) Pneumonia Current Visit: Yes Status: Acute Code(s): J18.9 - PNEUMONIA, UNSPECIFIED ORGANISM SNOMED Code(s): 097883263 Comment: No further signs of pneumonia. Not on Abx for the last several days. (3) Urinary retention Current Visit: Yes Status: Acute Code(s): R33.9 - RETENTION OF URINE, UNSPECIFIED SNOMED Code(s): 370406653 Comment: Biswas removed and pt voiding without difficult. With new c/o voiding small amounts will bladder scan pt. (4) COPD (chronic obstructive pulmonary disease) Current Visit: Yes Status: Acute Code(s): J44.9 - CHRONIC OBSTRUCTIVE PULMONARY DISEASE, UNSPECIFIED SNOMED Code(s): 42346831 Comment: No signs of exacerbation at this time. Continue singulair, theophylline, dulera and duonebs. (5) Hypokalemia Current Visit: Yes Status: Acute Code(s): E87.6 - HYPOKALEMIA SNOMED Code( s): 65723132 Comment: Secondary to GI losses, will replete as needed. (6) Hyponatremia Current Visit: Yes Status: Acute Code(s): E87.1 - HYPO-OSMOLALITY AND HYPONATREMIA SNOMED Code(s): 18249670 Comment: Improving. Likely secondary to pneumonia/volume loss. (7) CVA (cerebral vascular accident) Current Visit: Yes Status: Suspected Onset Date: 05/08/14 Code(s): I63.9 - CEREBRAL INFARCTION, UNSPECIFIED SNOMED Code(s): 942950875 Comment: Pt had a CVA in the past without any residual deficits. Will continue plavix and lipitor. (8) DVT prophylaxis Current Visit: Yes Status: Acute Onset Date: 05/08/14 Code(s): WHB0469 - SNOMED Code(s): 493905357 Comment: Lovenox (9) Full code status Current Visit: Yes Status: Acute Code(s): Z78.9 - OTHER SPECIFIED HEALTH STATUS SNOMED Code(s): 302959297
--- NOTE | 2019-04-11 14:52 | CONS ---
CONSULTATION REPORT: DATE OF CONSULT: 04/11/19 PRIMARY CARE PROVIDER: Dr. Demario Duff. PROVIDER REQUESTING CONSULTATION: Dr. Kaykay Quick. CONSULTING SERVICE: Infectious Disease. PROVIDER: Arnel Swartz NP ATTENDING PROVIDER: Dr. Neel Medina.* (DICTATED BY ARNEL SWARTZ NP) REASON FOR CONSULT: Diarrhea with positive C. difficile PCR. IMPRESSION: 1. Diarrhea. The patient has stool culture that was PCR positive for C. diff; Negative for giardia, shigella, and rotavirus. The patient is a poor historian and it is hard to quantify exactly how much diarrhea she has been having. According to the nursing documentation, she last had 2 bowel movements on and has not had a bowel movement since. She had a CT of the abdomen and pelvis on 04/08/19 showing question of minimal nonspecific pancolitis with fluid throughout much of the colon consistent with diarrhea. She has been on oral vancomycin for 3 days. She is afebrile. Denies abdominal pain, but reports a discomfort due to the abdominal distention. No leukocytosis. She is tolerating a regular diet. Differential diagnosis includes Clostridium difficile colitis vs ileus. 2. Community-acquired pneumonia. The patient has no current signs of pneumonia and completed her course of antibiotics. 3. Urinary retention. She had urinary catheter removed and has been voiding without difficulty. I question if part of the urinary retention may be secondary to whatever abdominal process she has going on and the distention from this. PLAN: Recommend continuing oral vancomycin to complete a 10-day course. Also could consider obtaining abdominal x-ray to evaluate for an ileus. We will continue to follow along. HISTORY OF PRESENT ILLNESS: Ms. De La Cruz is a 78-year-old with past medical history significant for COPD, asthma, hyperlipidemia, breast cancer, CVA and Menetrier's disease, who states that she was in her usual state of health when approximately 10 days before her presentation she developed bright yellow sputum with a cough. She had initially been seen by her primary care provider' s office, who placed her on azithromycin. After 3 days, she was seen again and the antibiotics were changed to Levaquin. She continued to have a cough with yellow sputum and a fever of 102.5 with chills and sweats at home and so she presented to the emergency room for further evaluation. While in the emergency room, she was noted to have mild leukocytosis, a chest x -ray showing right upper lobe pneumonia, and she was admitted to the hospital for community-acquired pneumonia with urinary retention, hyponatremia, and an elevated creatinine. The patient was started on azithromycin and ceftriaxone. While in the hospital, her fatigue has improved. She is generally feeling well. She reports having diarrhea at home. She states this was 1 to 2 loose stools daily. She is not really able to give much detail about this. According to nursing documentation, it appears that she was having anywhere from 1 to 6 stools daily. She had testing positive for C. diff, negative for shigella, rotavirus, giardia, cryptosporidium. She was started on oral vancomycin. She has completed a course of antibiotics for her pneumonia. She was also noted to have a distended abdomen. She denies pain, but states that it is uncomfortable. Her fevers have resolved. Her leukocytosis has resolved. Urinalysis negative. She denies fevers but reports chills last night. She reports an occasional cough with white sputum production. Denies joint pain, muscle pain, rash, nausea, vomiting, diarrhea, or constipation. She states that she for the last couple days has had 1 to 2 loose stools, but now has not moved her bowels in approximately a day. She reports acid reflux, which she feels is secondary to the antibiotic. She reports urinating, but feels that she is urinating less than her normal. PAST MEDICAL HISTORY: 1. COPD. 2. Asthma. 3. Hyperlipidemia. 4. Breast cancer. 5. CVA. 6. Menetrier's disease. PAST SURGICAL HISTORY: 1. Status post bilateral mastectomy. 2. Status post cysto and renal stent placement. 3. Status post left total hip arthroplasty. 4. Status post section. 5. Status post hysterectomy. 6. Status post lysis of adhesions. 7. Status post partial gastrectomy. MEDICATIONS: Home medications: 1. Lavon-Dur 300 mg by mouth twice daily. 2. Advair Diskus 250/50 one puff inhalation twice daily. 3. Fluticasone 2 sprays to both nares daily. 4. Lotrisone cream topical daily. 5. Plavix 75 mg by mouth daily. 6. Clobetasol 0.05%, apply topical twice daily as needed for rash. 7. Anastrozole 1 tablet by mouth daily. 8. Simvastatin 40 mg by mouth daily. 9. Singulair 10 mg by mouth daily. 10. Levofloxacin 500 mg by mouth daily. 11. Atrovent 0.5 mg inhalation 4 times daily as needed for shortness of breath or wheeze. Hospital medications: 1. Acetaminophen 650 mg by mouth every 4 hours as needed for [id number] pain. 2. DuoNeb 2.5/0.5 one neb inhalation every 4 hours as needed for shortness of breath or wheeze. 3. Anastrozole 1 mg by mouth daily. 4. Atorvastatin 20 mg by mouth daily. 5. Lotrisone, apply topical twice daily. 6. Calcium carbonate 1000 mg by mouth every 8 hours as needed for indigestion. 7. Clobetasol 0.05%, apply topical twice daily as needed for rash. 8. Plavix 75 mg by mouth daily. 9. Lovenox 40 mg subcutaneous daily. 10. Flonase nasal spray 2 sprays to both nares daily. 11. Dulera 200/5 two puffs inhalation twice daily. 12. Singulair 10 mg by mouth daily. 13. Zofran 4 mg IV every 4 hours as needed for nausea. 14. Protonix 40 mg by mouth daily. 15. Sodium chloride 100 mL intravenously an hour. 16. Lavon-Dur 300 mg by mouth twice daily. 17. Vancomycin 250 mg by mouth 4 times daily. ALLERGIES: 1. MERCURY. 2. SALICYLATES. 3. SULFA causes joint pain. 4. Environmental allergies. FAMILY HISTORY: No family history of recurrent or resistant infections. Mother with a history of coronary artery disease and history of coronary artery bypass graft. No family history of diabetes. Mother with a history of breast cancer. Father with a history of lung cancer. Son with a history of non-Hodgkin 's lymphoma. SOCIAL HISTORY: Denies alcohol or recreational drug use. She is a former smoker, quitting in 1982. Prior to that, she had a 17-year 1 pack a day smoking history. REVIEW OF SYSTEMS: I performed a 10-point review of systems. All the pertinent positives and negatives are mentioned in the history of present illness. The remaining review of systems are negative. PHYSICAL EXAM: Vital Signs: Temperature 98.2, heart rate 71, respiratory rate 20, O2 sat 98% on room air, blood pressure 104/65. General Appearance: The patient is alert, appears to be in no acute distress. Head: Normocephalic, atraumatic. EENT: Extraocular movements are intact. No subconjunctival hemorrhage. Moist mucous membranes. Neck: Supple. No lymphadenopathy. Neurological: Alert and oriented to person, place and time, but had some mild confusion. Cardiovascular: Irregular rate and rhythm. S1 and S2 present. No murmurs, rubs, or gallops heard. There is 1+ bilateral lower extremity edema. Respiratory: Lungs are clear to auscultation bilaterally. Abdomen: Bowel sounds hypoactive. Abdomen is soft, nontender, distended, and slightly gravid appearing. Extremities: DP and PT pulses are present. Musculoskeletal: No clubbing or cyanosis noted. Exhibits good strength in all extremities. Psychological: Calm and cooperative. Skin: No rashes or abnormalities seen. DIAGNOSTIC STUDIES/LAB DATA: Sodium 133, potassium 3.5, chloride 107, CO2 of 20 , BUN 10, creatinine 0.74, glucose 88. White blood cell count 9.1, hemoglobin 9.8, hematocrit 29, platelet count 329. Please see impression and recommendations outlined above. Recommendations have been discussed with Dr. Kaykay Quick. Thank you for asking us to see Ms. De La Cruz in consultation. The case has been reviewed with the attending, Dr. Neel Medina, who agrees with the plan of care. Reviewed by MINI FOURNIER 04/12/19 1613 [id number]/[facility] #: [id number] SAR[place]
[2019-04-12] MEDS: Enoxaparin(*) 40 MG/0.4 ML SYR SUBCUT SCH (06:20)
[2019-04-12] MEDS: Mometasone/Formoter 200/5 MDI INH SCH (07:36)
[2019-04-12] MEDS: Clotrimazole/Betamethasone CREAM* 15 GM TOPICAL SCH (09:19)
[2019-04-12] MEDS: Fluticasone NASAL SPRAY 50MCG* 16 gm SPRAY BTL BOTH NARES SCH (09:23)
[2019-04-12] MEDS: Theophylline TAB* 300 MG PO SCH (09:23)
[2019-04-12] MEDS: Montelukast Sodium TAB* 10 MG PO SCH (09:23)
[2019-04-12] MEDS: Atorvastatin* 20 MG TAB PO SCH (09:24)
[2019-04-12] MEDS: Clopidogrel TAB* 75 MG PO SCH (09:24)
[2019-04-12] MEDS: Vancomycin CAP* 250 MG CAP PO SCH ×2 (09:24→13:02)
[2019-04-12] MEDS: Pantoprazole TAB * 40 MG TAB PO SCH (09:24)
[2019-04-12] MEDS: CMCS:Anastrozole (NF) 1 MG TAB PO SCH (09:24)
--- NOTE | 2019-04-12 11:06 | PN ---
Progress Note - Progress Note Date of Service: 04/12/19 SOAP: Subjective: CC: Diarrhea HPI: Ms. De La Cruz is a 78 yo female with PMH significant for COPD, asthma, HLD, breast cancer, CVA, and Mentrier's disease; who presented to the hospital with fever and cough. Denies fever, chills, nausea, vomiting, or diarrhea. The indigestion that she was having yesterday has resolved. She reports a normal bowl movement yesterday and a BM with formed and loose stool this AM. She is tolerating a regular diet. She reports mild discomfort in her ABD with palpation. Objective: Vital Signs - 8 hr 04/12/19 04/12/19 03:25 08:00 Temperature 98.6 F 97.6 F Pulse Rate 65 66 Respiratory 20 16 Rate Blood Pressure 109/57 95/52 (mmHg) O2 Sat by Pulse 100 99 Oximetry Physical Exam: General: NAD, sitting up in bed Neurological: Alert and Oriented x3 HEENT: Moist MM, no thrush Cardiovascular: Heart rate regular Respiratory: Lung sounds clear Abdominal: Bowel sounds present; ABD soft, distended, and generalized tenderness with palpation Skin: No rash Laboratory Last Values WBC 9.1 10^3/uL (3.5-10.8) 04/10/19 06:23 RBC 3.23 10^6 /uL (3.70-4.87) L 04/10/19 06:23 Hgb 9.8 g/dL (12.0-16.0) L 04/10/19 06:23 Hct 29 % (35-47) L 04/10/19 06:23 MCV 89 fL (80-97) 04/10/19 06:23 MCH 30 pg (27-31) 04/10/19 06:23 MCHC 34 g/dL (31-36) 04/10/19 06:23 RDW 14 % (10-15) 04/10/19 06:23 Plt Count 329 10^3/uL (150-450) 04/10/19 06:23 MPV 7.4 fL (7.4-10.4) 04/10/19 06:23 Neut % (Auto) 78.8 % 04/10/19 06:23 Lymph % (Auto) 7.5 % 04/10/19 06:23 [place] % (Auto) 11.9 % 04/10/19 06:23 Eos % (Auto) 1.4 % 04/10/19 06:23 Baso % (Auto) 0.4 % 04/10/19 06:23 Absolute Neuts (auto) 7.1 10^3/ul (1.5-7.7) 04/10/19 06:23 Absolute Lymphs (auto) 0.7 10^3/ul (1.0-4.8) L 04/10/19 06:23 Absolute Monos (auto) 1.1 10^3/ul (0-0.8) H 04/10/19 06:23 Absolute Eos (auto) 0.1 10^3/ul (0-0.6) 04/10/19 06:23 Absolute Basos (auto) 0.0 10^3/ul (0-0.2) 04/10/19 06:23 Absolute Nucleated RBC 0.0 10^3/ul 04/10/19 06:23 Nucleated RBC % 0.0 04/10/19 06:23 Sodium 133 mmol/L (135-145) L 04/10/19 06:23 Potassium 3.5 mmol/L (3.5-5.0) 04/10/19 06:23 Chloride 107 mmol/L (101-111) 04/10/19 06:23 Carbon Dioxide 20 mmol/L (22-32) L 04/10/19 06:23 Anion Gap 6 mmol/L (2-11) 04/10/19 06:23 BUN 10 mg/dL (6-24) 04/10/19 06:23 Creatinine 0.74 mg/dL (0.51-0.95) 04/10/19 06:23 Est GFR ( Amer) 91.6 (>60) 04/10/19 06:23 Est GFR (Non-Af Amer) 75.7 (>60) 04/10/19 06:23 BUN/Creatinine Ratio 13.5 (8-20) 04/10/19 06:23 Glucose 88 mg/dL (70-100) 04/10/19 06:23 Lactic Acid 1.0 mmol/L (0.5-2.0) 04/07/19 18:23 Calcium 7.5 mg/dL (8.6-10.3) L 04/10/19 06:23 Magnesium 2.1 mg/dL (1.9-2.7) 04/07/19 18:23 Total Bilirubin 0.70 mg/dL (0.2-1.0) 04/07/19 18:23 AST 30 U/L (13-39) 04/07/19 18:23 ALT 32 U/L (7-52) 04/07/19 18:23 Alkaline Phosphatase 78 U/L (34-104) 04/07/19 18:23 Troponin I 0.00 ng/mL (<0.03) 04/07/19 18:23 C-Reactive Protein 163.75 mg/L (<8.01) H 04/07/19 18:23 Total Protein 4.6 g/dL (6.4-8.9) L 04/07/19 18:23 Albumin 2.4 g/dL (3.2-5.2) L 04/07/19 18:23 Globulin 2.2 g/dL (2-4) 04/07/19 18:23 Albumin/Globulin Ratio 1.1 (1-3) 04/07/19 18:23 TSH 1.82 mcIU/mL (0.34-5.60) 04/07/19 18:23 Urine Color Yellow 04/08/19 16:40 Urine Appearance Clear 04/08/19 16:40 Urine pH 5.0 (5-9) 04/08/19 16:40 Ur Specific [place] 1.011 (1.010-1.030) 04/08/19 16:40 Urine Protein Negative (Negative) 04/08/19 16:40 Urine Ketones Negative (Negative) 04/08/19 16:40 Urine Blood 2+ (Negative) A 04/08/19 16:40 Urine Nitrate Negative (Negative) 04/08/19 16:40 Urine Bilirubin Negative (Negative) 04/08/19 16:40 Urine Urobilinogen Negative (Negative) 04/08/19 16:40 Ur Leukocyte Esterase Negative (Negative) 04/08/19 16:40 Urine WBC (Auto) Trace(0-5/hpf) (Absent) 04/08/19 16:40 Urine RBC (Auto) 3+(>10/hpf) (Absent) A 04/08/19 16:40 Ur Squamous Epith Cells Present (Absent) A 04/08/19 16:40 Urine Bacteria Absent (Absent) 04/08/19 16:40 Urine Glucose Negative (Negative) 04/08/19 16:40 Urine Ascorbic Acid * (Negative) A 04/07/19 20:20 Theophylline < 2.7 mcg/mL (10-20.0) L 04/07/19 18:23 Hep Bs Antigen Nonreactive (Nonreactive) 04/10/19 06:23 Hepatitis C Antibody Negative (Negative) 04/10/19 06:23 Hepatitis C Ab Index 0.00 s/c 04/10/19 06:23 HIV 1&2 Ab/P24 Ag 4thGn Nonreactive (Nonreactive) 04/10/19 14:34 Influenza A (Rapid) Negative (Negative) 04/08/19 02:00 H.influenzae Type B Ab 0.94 mg/L (>=0.15) 04/07/19 18:28 Influenza B (Rapid) Negative (Negative) 04/08/19 02:00 Parasite Exam See comment 04/08/19 16:40 Microbiology 04/07/19 18:43 Aerobic Blood Culture - Preliminary Blood Venous No Growth Day 4 Anaerobic Blood Culture - Preliminary No Growth Day 4 04/07/19 19:00 Aerobic Blood Culture - Preliminary Blood Venous No Growth Day 4 Anaerobic Blood Culture - Preliminary No Growth Day 4 04/09/19 04:20 Gram Stain - Final Sputum Sputum Culture - Final YEAST Normal Leslee 04/08/19 17:07 Cryptosporidium/Giardia - Final Stool Neg Cryptosporidium/Giardia 04/08/19 16:40 Stool Culture - Final Stool Stool Gross Appearance - Final Shiga Toxin I & II - Final C. difficile DNA Amplification - Final 027 Presumptive NEGATIVE Toxigenic C.diff POSITIVE Rotavirus Antigen - Final Negative Rotavirus 04/07/19 20:20 Urine Culture - Final Urine No Growth (<1,000 CFU/mL) 04/08/19 14:20 Gram Stain - Final Sputum Expectorated 04/07/19 20:20 Legionella Urinary Antigen - Final Urine Negative Legionella Antigen Streptococcus pneumoniae Ag Screen - Final Negative S. pneumo Antigen Assessment: 1. Diarrhea. ABD/pelvis CT with nonspecific pancolitis. PCR for C-diff positive. Stool culture negative. ABD xray yesterday with no evidence of obstruction, and thickening of the colon wall. Pt reports that the loose stools has been decreasing. She reports a normal BM yesterday and loose/formed stool this AM. Afebrile and no leukocytosis. She is tolerting a regular diet. 2. Indigestion. Resolved since starting Protonix yesterday. Plan: Continue oral Vancomycin, day 10.
[2019-04-12 13:50] VITALS: BP 100/56
--- NOTE | 2019-04-12 22:06 | DS ---
CC: Demario Duff M.D.; Bonifacio Carreno M.D.; Nguyễn Loza M.D. * DISCHARGE SUMMARY: DATE OF ADMISSION: 04/07/19 DATE OF DISCHARGE: 04/12/19 PRIMARY CARE PROVIDER: Demario Duff M.D. OTHER PROVIDERS: Bonifacio Carreno M.D.; Nguyễn Loza M.D. ATTENDING PHYSICIAN: Kp Marcos M.D.* (dictated by PHILIP Reagan) PRIMARY DIAGNOSES: 1. Clostridium difficile. 2. Pneumonia. 3. Acute urinary retention. 4. Electrolyte abnormalities. SECONDARY DIAGNOSES: 1. Chronic obstructive pulmonary disease. 2. Asthma. 3. Hyperlipidemia. 4. Bilateral breast cancer, status post mastectomy. 5. Cerebrovascular accident without residual defects. STUDIES WHILE IN THE HOSPITAL: 1. Chest x-ray, impression: Possible right upper lung pneumonia with bronchiectatic dilatation. Please correlate to surgical history as this corresponds to surgical clips as well. 2. Ultrasound of renal and bladder, impression: Right renal cortical thinning , which measures 7 mm. Otherwise negative renal sonogram. 3. CT chest, abdomen, and pelvis with contrast: Status post bilateral mastectomies. Mild bilateral lower lobe fibroatelectatic change, which is similar to 08/16/17 with minimal patchy infiltrates in the right lung and left base, which are new. Trace pericardial effusion, which is increased. Minimal hiatal hernia. Otherwise negative CT chest and no central pulmonary embolism is identified. Status post hysterectomy. Biswas catheter in bladder. Question of minimal nonspecific pancolitis. Fluid throughout much of the colon consistent with diarrhea. 4. KUB, impression: No evidence for obstruction. Thickening of the haustral folds suggestive of colon wall thickening consistent with the prior CT findings. DISCHARGE MEDICATIONS: Home medications: 1. Anastrozole 1 mg p.o. daily. 2. Clobetasol 0.05% ointment 1 application topically b.i.d. p.r.n. rash. 3. Clopidogrel 75 mg p.o. daily. 4. Lotrisone cream 1 application topically b.i.d. 5. Fluticasone nasal spray 2 sprays to both nares daily. 6. Advair Diskus 250/50 one puff inhalation b.i.d. 7. Atrovent 0.5 mg nebulizer inhalation q.i.d. p.r.n. shortness of breath/ wheeze. 8. Montelukast sodium 10 mg p.o. daily. 9. Simvastatin 40 mg p.o. daily. 10. Theophylline ER 300 mg p.o. b.i.d. [place] Medications: 1. Pantoprazole 40 mg p.o. daily. 2. Vancomycin 250 mg p.o. 4 times daily x7 days. HISTORY OF PRESENT ILLNESS/HOSPITAL COURSE: Ms. De La Cruz is a 78-year-old female with a past medical history of COPD, asthma, bilateral breast cancer, status post mastectomy, who presented to the ER on 04/07/19 with complaints of productive cough x10 days, fever up to 102.5, chills, sweats, one episode of diarrhea daily. For full and complete details, please see the history and physical dictated on 04/07/19; but, in short, the patient presented with these symptoms. She was admitted and was started on ceftriaxone and azithromycin for treatment of community-acquired pneumonia. In the outpatient setting, she completed 7 days of antibiotics; azithromycin x3 days, Levaquin x4 days. Ceftriaxone and azithromycin were discontinued. The patient continued to have a cough, but this was occasional and mild. She was otherwise asymptomatic and was afebrile throughout her hospital stay. She was noted to have a mild leukocytosis, which resolved by the time of discharge. The patient complained of diarrhea daily. She was noted to be a relatively poor historian, and there was suspicion that she may be experiencing greater than one loose stool daily. Stool studies were obtained and were positive for C. diff. CT of the chest, abdomen, and pelvis revealed mild pancolitis, liquid- filled colon. She was started on vancomycin 4 times a day. ID was consulted and recommended abdominal x- ray and continuation of vancomycin. Abdominal x- ray revealed no evidence of obstruction. The patient continued vancomycin with good results. Her last 2 bowel movements have been formed, although she reported some mild liquid stool this morning along with formed stool and some fluctuance. She denies abdominal pain, "unless I press on it." She did complain of indigestion over the last couple of days, but notes that this improved with pantoprazole which she will be discharged home with. At admission, the patient had mild urinary retention. Urinalysis revealed 2+ LE with negative urine culture. A Biswas catheter was placed. A trial Biswas removal was performed and the patient was voiding without difficulty. The patient denies urinary complaints at this time. The patient was also noted to have some mild electrolyte abnormalities, specifically hypokalemia and hyponatremia. These improved with IV fluids and repletion. These were likely secondary to GI losses and dehydration. At the time of discharge, the patient complains of an occasional cough that is productive with white sputum. She had a bowel movement today that was half "runny" and half formed. She is complaining of flatus. She denies abdominal pain at this time. She has no other complaints. Ms. De La Cruz is stable for discharge to home. PHYSICAL EXAMINATION: Vital Signs: Temperature 97.6 oral, heart rate 66, respiratory rate 16, oxygen saturation 99% on room air, blood pressure 95/52. General: Ms. De La Cruz is a well-developed, well-nourished, average weight, older white female, who is seen ambulating in the [place]. She appears comfortable and in no acute distress. HEENT: PERRL. EOMI. Sclerae nonicteric. Hearing is mildly diminished. Oral mucous membranes are moist. There are no lesions. The pharynx is clear without erythema, exudate, drainage. Tongue is at midline. Palate elevates symmetrically. Cardiovascular: Regular rate and rhythm with S1, S2 present. No murmurs, rubs, clicks or gallops. There is no JVD, 1+ pitting edema to bilateral lower extremities. Pulmonary: Symmetrical chest expansion without use of accessory muscles. Clear to auscultation bilaterally without rhonchi, wheeze or rales. Abdomen: Bowel sounds are normoactive throughout. Abdomen is soft. There is very mild tenderness to palpation in the epigastric area. Musculoskeletal: Full range of motion without pain or deformities. Neuro: The patient is awake. She is alert and oriented x3. Cranial nerves II through XII are grossly intact. Musculoskeletal : Strength 5/5 bilaterally in upper and lower extremities. [employer] strength equal , steady gait without impairment. DISCHARGE PLAN: Ms. De La Cruz will be discharged to home. DIET: Heart healthy. ACTIVITY: As tolerated. CONDITION: Good. MEDICATIONS: 1. Continue vancomycin 4 times daily for 6 more days. 2. Continue pantoprazole daily. EDUCATION: 1. Follow up with primary care provider in 4 to 7 days. Discuss recent hospitalization. 2. Return to the ER or nearest hospital if you experience any return or worsening of symptoms, return of diarrhea, chest pain or discomfort, shortness of breath, dizziness, lightheadedness, loss of consciousness, high fevers, chills, night sweats or any other worrisome signs or symptoms. This is a summarized report for complex medical history and hospital stay. For further details, please see the entire medical record. TIME SPENT: Approximately 35 minutes was spent on this discharge; greater than half that time was spent [id number] with the patient discussing discharge plans and instructions. PHILIP PIERCE [id number]/[facility] #: [id number]
== END 2019-04-12 13:50 | disposition home or self-care (01) | DRG 371 ==
LOC: ED 14:34 → MED 20:06
PROVIDERS: ADMIT Student in an Organized Health Care Education/Training Program; ATTEND Internal Medicine
DX: A04.72 Enterocolitis due to Clostridium difficile, not specified as recurrent (principal); J18.9 Pneumonia, unspecified organism; K51.00 Ulcerative (chronic) pancolitis without complications; J44.0 Chronic obstructive pulmonary disease with (acute) lower respiratory infection; E87.1 Hypo-osmolality and hyponatremia; N17.9 Acute kidney failure, unspecified; M19.90 Unspecified osteoarthritis, unspecified site; Z96.642 Presence of left artificial hip joint; E78.5 Hyperlipidemia, unspecified; E86.0 Dehydration; D64.9 Anemia, unspecified; R33.9 Retention of urine, unspecified; Z88.2 Allergy status to sulfonamides; Z88.8 Allergy status to other drugs, medicaments and biological substances; Z87.442 Personal history of urinary calculi; Z86.73 Personal history of transient ischemic attack (TIA), and cerebral infarction without residual deficits; Z87.891 Personal history of nicotine dependence; Z85.3 Personal history of malignant neoplasm of breast; Z90.13 Acquired absence of bilateral breasts and nipples; Z79.02 Long term (current) use of antithrombotics/antiplatelets; Z79.899 Other long term (current) drug therapy
CPT/HCPCS: 36415; 71045; 71260; 74018; 74177; 76770; 80048; 80053; 80198; 81003; 81015; 83605; 83735; 84443; 84484; 85025; 86140; 86684; 86803; 87040; 87045; 87046; 87070; 87086; 87177; 87205; 87209; 87328; 87329; 87340; 87389; 87425; 87493; 87899; 93005; 94640; 96365; 96375; 99284; A9270-GY; J0456; J0696; J1650; J2405; Q9967

== ENCOUNTER 2019-07-03 12:55 | Emergency (ER) | payer MEDICARE, BC ==
[2019-07-03 13:06] VITALS: BP 177/98
--- OUTSIDE RECORDS SUMMARY | 2019-07-03 13:24 | XMS REPORT | Continuity of Care Document ---
:1940 External Reference #:[id number] Author Name Med Hinds Address [address] [place] [address] Care Team Providers Name Role Phone [facility] - Care Team Information Gumming Machine Operator [phone] Gastroenterology Julio C Fernandez MD - Orthopaedic Care Team Information Gumming Machine Operator Surgery Josh Early MD - Care Team Information Gumming Machine Operator [phone] Gastroenterology Problems Active Problems Provider Date Asthma [...] Unknown End: Patient is a former smoker quit 1975 Unknown Smoking Status Reviewed: 06/20/19 Patient is a former smoker quit 1975 Allergies, Adverse Reactions, Alerts Active Allergies Reaction Severity Comments Date Sulfa Drugs 10/02/2003 Mercury 11/13/2008 Salicylates pain 06/09/2011 Medications Active Medications SIG Qnty Indications Ordering Date Provider Fluticasone 2 sprays each 32gm Demario Fonseca 05/02/2019 Propionate nostril daily Josie Duff 50mcg/Act Suspension Dyazide take 1 capsule by 30caps Daniela 04/18/2019 37.5-25mg mouth for fluid Jovanna, VENEER DRIER Capsules in am Clopidogrel take 1 tablet 90tabs Demario Naploes 08/17/2018 Bisulfate daily MD Kaylene 75mg Tablets Clotrimazole/Betamet use on skin twice 30units Demario Fonseca 02/07/2018 hasone Dipropionate a day Josie Duff 1-0.05% Cream Clobetasol use twice a day 30gm Demario Fonseca 07/28/2016 Propionate Josie Duff 0.05% Cream Simvastatin 1 by mouth every 90tabs Demario Fonseca 07/19/2014 40mg day Josie Duff Tablets Ipratropium Nebulize 1 Vial 270units R0 Demario Fonseca 04/30/2014 [place]/Albuterol Three Times A Day Josie Duff Sulfate And 1 Additional Time as Needed 0.5-2.5(3)mg/3ML Solution Advair Diskus use one 3units R05 Demario Fonseca 10/07/2010 inhalation two Josie Duff 100-50mcg/Dose times a day Aerosol Montelukast Sodium take 1 tablet 90tabs Yessi 05/03/2006 daily Easleynp-C 10mg Tablets Theophylline ER take 1 tablet 180tabs Yessi 10/02/2003 300mg twice a day Crista Shukla-C Tablets ER 12HR Anastrozole 1 by mouth every Unknown 1mg day Tablets History Medications Levaquin 1 by mouth every 7tabs Demario Fonseca 04/03/2019 - 500mg day x 7 days Josie Duff 04/18/2019 Tablets Loperamide HCL take two tablets 40caps R19.7 Lauryn Gomez, 03/31/2019 - 2mg for pain oafter VENEER DRIER 05/02/2019 Capsules first diarrheal stool then one after each subsequent stool maximum daily dose = 6 Medications Administered in Office Medication SIG Qnty Indications Ordering Provider Date Injection Subcutaneous Or Demario Duff M.D. 11/13/2008 Intramuscular Injection Immunizations CPT Code Status Date Vaccine Lot # [id number] Given 02/13/2019 High-Dose, Influenza Virus Vacccine-fluzone 65 and older 60286 Given 02/23/2018 High-Dose, Influenza Virus Vacccine-fluzone 65 [id number] and older 62436 Given 02/19/2017 High-Dose, Influenza Virus Vacccine-fluzone 65 [id number] and older 10602 Given 02/25/2016 High-Dose, Influenza Virus Vacccine-fluzone 65 [id number] and older 22078 Given 01/29/2015 Influenza Vac, Quadrivalent, Slit Virus, Im [id number] 41795 Given 01/29/2015 Pneumococcal Conjugate Vacc-13 [id number] 39037 Given 07/20/2014 Zostivax 21057 Given 02/26/2014 High-Dose, Influenza Virus Vacccine-fluzone 65 and older 41461 Given 04/29/2013 DO Not Use Split Influenza Virus Vaccine 60390 Given 04/23/2010 DO Not Use Split Influenza Virus Vaccine [id number] 32887 Given 04/27/2001 Pneumococcal Immunization Vital Signs Date Vital Result Comment 06/20/2019 10:32am BP Systolic 138 mmHg BP Diastolic 76 mmHg Heart Rate 68 /min Body Temperature 97.6 F Respiratory Rate 18 /min O2 % BldC Oximetry 96 % Weight 145.00 lb 05/02/2019 7:53am BP Systolic 138 mmHg BP Diastolic 80 mmHg Heart Rate 74 /min Body Temperature 97.9 F O2 % BldC Oximetry 98 % Weight 141.00 lb Results Test Acquired Date Facility Test Result H/L Range Note CBC Auto Diff 04/07/2019 [facility] White Blood 10.9 10^3/uL High 3.5-10.8 Count Red Blood Count 3.61 10^6/uL Low 3.70-4.87 Hemoglobin 11.0 g/dL Low 12.0-16.0 Hematocrit 32 % Low 35-47 Mean Corpuscular Volume 89 fL Normal 80-97 Mean Corpuscular Hemoglobin 31 pg Normal 27-31 Mean Corpuscular HGB Conc 34 g/dL Normal 31-36 Red Cell Distribution Width 14 % Normal 10-15 Platelet Count 318 10^3/uL Normal 150-450 Mean Platelet Volume 7.9 fL Normal 7.4-10.4 Abs Neutrophils 8.4 10^3/uL High 1.5-7.7 Abs Lymphocytes 0.9 10^3/uL Low 1.0-4.8 Abs Monocytes 1.5 10^3/uL High 0-0.8 Abs Eosinophils 0.1 10^3/uL Normal 0-0.6 Abs Basophils 0.0 10^3/uL Normal 0-0.2 Abs Nucleated RBC 0.0 10^3/uL Granulocyte % 77.0 % Lymphocyte % 8.7 % Monocyte % 13.3 % Eosinophil % 0.7 % Basophil % 0.3 % Nucleated Red Blood Cells % 0.0 Laboratory test finding 04/07/2019 [facility] Lactic Acid 1.0 mmol/L Normal 0.5- 2.0 1 Theophylline < 2.7 g/mL Low 10-20.0 Comp Metabolic Panel 04/07/2019 [facility] Sodium 129 mmol/L Low 135-145 Potassium 3.7 mmol/L Normal 3.5-5.0 Chloride 96 mmol/L Low 101-111 Co2 Carbon Dioxide 27 mmol/L Normal 22-32 Anion Gap 6 mmol/L Normal 2-11 Glucose 95 mg/dL Normal 70-100 Blood Urea Nitrogen 16 mg/dL Normal 6-24 Creatinine 1.03 mg/dL High 0.51-0.95 BUN/Creatinine Ratio 15.5 Normal 8-20 Calcium 7.8 mg/dL Low 8.6-10.3 Total Protein 4.6 g/dL Low 6.4-8.9 Albumin 2.4 g/dL Low 3.2-5.2 Globulin 2.2 g/dL Normal 2-4 Albumin/Globulin Ratio 1.1 Normal 1-3 Total Bilirubin 0.70 mg/dL Normal 0.2-1.0 Alkaline Phosphatase 78 U/L Normal 34-104 Alt 32 U/L Normal 7-52 Ast 30 U/L Normal 13-39 Egfr Non- 51.7 >60 Egfr 62.5 >60 2 Laboratory test finding 04/07/2019 [facility] Magnesium 2.1 mg/dL Normal 1.9- 2.7 Troponin-I (TnI) 0.00 ng/mL <0.03 3 C Reactive Protein 163.75 mg/L High <8.01 TSH (Thyroid Stim Horm) 1.82 mcIU/mL Normal 0.34-5.60 Urinalysis Profile 04/07/2019 [facility] [place] Color Jocelyn Urine Appearance Clear Urine Specific [place]all 1.014 Normal 1.010-1.030 Urine pH 6.0 Normal 5-9 Urine Urobilinogen Negative Negative Urine Ketones Negative Negative Urine Protein Negative Negative Urine Leukocytes 2+ Abnormal Negative Urine Blood Negative Negative * * Abnormal Negative 4 Urine Nitrite Negative Negative Urine Bilirubin Negative Negative Urine Glucose Negative Negative Urine White Blood Cell 2+(11-20/hpf) Abnormal Absent Urine Red Blood Cell Trace(0-2/hpf) Absent Urine Bacteria Absent Absent Urine Squamous Epithelial Cell Present Abnormal Absent Urine Culture And 04/07/2019 [facility] [place]rine Culture SEE RESULT 5 Sensitivities BELOW Stool Occult Blood, 03/29/2019 [facility] Stool Occult SEE RESULT 6 Screen Blood, Screen BELOW CBC Auto Diff 03/29/2019 [facility] White Blood 11.4 10^3/uL High 3.5-10.8 Count Red Blood Count 4.58 10^6/uL Normal 3.70-4.87 Hemoglobin 13.8 g/dL Normal 12.0-16.0 Hematocrit 42 % Normal 35-47 Mean Corpuscular Volume 91 fL Normal 80-97 Mean Corpuscular Hemoglobin 30 pg Normal 27-31 Mean Corpuscular HGB Conc 33 g/dL Normal 31-36 Red Cell Distribution Width 14 % Normal 10-15 Platelet Count 235 10^3/uL Normal 150-450 Mean Platelet Volume 8.1 fL Normal 7.4-10.4 Abs Neutrophils 9.4 10^3/uL High 1.5-7.7 Abs Lymphocytes 0.9 10^3/uL Low 1.0-4.8 Abs Monocytes 0.9 10^3/uL High 0-0.8 Abs Eosinophils 0.1 10^3/uL Normal 0-0.6 Abs Basophils 0.0 10^3/uL Normal 0-0.2 Abs Nucleated RBC 0.0 10^3/uL Granulocyte % 82.3 % Lymphocyte % 8.3 % Monocyte % 8.2 % Eosinophil % 1.0 % Basophil % 0.2 % Nucleated Red Blood Cells % 0.0 Comp Metabolic Panel 03/29/2019 [facility] Sodium 135 mmol/L Normal 135-145 Potassium 4.0 mmol/L Normal 3.5-5.0 Chloride 101 mmol/L Normal 101-111 Co2 Carbon Dioxide 26 mmol/L Normal 22-32 Anion Gap 8 mmol/L Normal 2-11 Glucose 94 mg/dL Normal 70-100 Blood Urea Nitrogen 15 mg/dL Normal 6-24 Creatinine 1.01 mg/dL High 0.51-0.95 BUN/Creatinine Ratio 14.9 Normal 8-20 Calcium 10.0 mg/dL Normal 8.6-10.3 Total Protein 7.1 g/dL Normal 6.4-8.9 Albumin 4.2 g/dL Normal 3.2-5.2 Globulin 2.9 g/dL Normal 2-4 Albumin/Globulin Ratio 1.4 Normal 1-3 Total Bilirubin 0.60 mg/dL Normal 0.2-1.0 Alkaline Phosphatase 100 U/L Normal 34-104 Alt 17 U/L Normal 7-52 Ast 20 U/L Normal 13-39 Egfr Non- 52.9 >60 Egfr 64.0 >60 7 Laboratory test finding 03/29/2019 [facility] Lipase < 10 U/L Low 11.0-82.0 C Reactive Protein 253.81 mg/L High <8.01 Lactic Acid 0.8 mmol/L Normal 0.5-2.0 8 Type & Screen 03/29/2019 [facility] Patient Blood Type O Positive Antibody Screen NEGATIVE Urinalysis Profile 03/29/2019 [facility] Urine Color Yellow Urine Appearance Clear Urine Specific Pearsall 1.016 Normal 1.010-1.030 Urine pH 5.0 Normal 5-9 Urine Urobilinogen Negative Negative Urine Ketones 1+ Abnormal Negative Urine Protein Negative Negative Urine Leukocytes Trace Abnormal Negative Urine Blood Negative Negative * * Abnormal Negative 9 Urine Nitrite Negative Negative Urine Bilirubin Negative Negative Urine Glucose Negative Negative Urine White Blood Cell Trace(0-5/hpf) Absent Urine Red Blood Cell Trace(0-2/hpf) Absent Urine Bacteria 1+ Abnormal Absent Urine Squamous Epithelial Cell Present Abnormal Absent Urine Culture And Sensitivities 03/29/2019 [facility] [place]rine Culture SEE RESULT BELOW 10 1 [place] Severe Sepsis and Septic Shock Management Bundle Measure requires all lactic acids initially measuring >2.0 mmol/L be repeated. 2 Because ethnic data is not always readily [...] 15-29 5 Kidney failure <15 (or dialysis) 3 Troponin-I testing on Plasma Separator Tubes (PST) has a known false positive rate of 0.20-0.40%. All positive troponins reflex immediately to secondary confirmatory testing. Using the makr DxI 800 Access Immunoassay systems, the 99th percentile upper reference limit was demonstrated to be < 0.03 ng/mL. 4 *Ascorbic acid is present which may interfere with detection of blood. 5 SEE RESULT BELOW Name: VILMA VANEGAS : [address]: Yessi Menchaca MD Acct: [id number] Unit: [id number] AGE: 78 Location: [place] [address] Re04/07/19 SEX: F Status: ADM IN SPEC: [id number] CRISTIAN: 04/07/[address] [facility] [address]: Daniel Wayne MD REQ: [id number] RECD: 04/07/19 STATUS: COMP MARLON DR: Demario Duff MD _ SOURCE: URINE SPDESC: ORDERED: Urine Culture Procedure Result Reported Site Urine Culture Final 04/09/19- 0858 ML No Growth (<1,000 CFU/mL) * ML - Main Lab . END OF REPORT DEPARTMENT OF PATHOLOGY, [address] [place] [address] Magdaleno De La Rosa M.D. Director [facility] # [id number] 6 SEE RESULT BELOW Name: VILMA VANEGAS : [address]: Valentino Leslie MD Acct: [id number] Unit: [id number] AGE: 78 Location: ED Re03/29/19 SEX: F Status: REG ER SPEC: [id number] CRISTIAN: 03/29/19-[address] [facility] [address]: Valentino Leslie MD REQ: [id number] RECD: 03/29/19 STATUS: COMP OT DR: Bonifacio Duff MD _ SOURCE: STOOL SPDESC: ORDERED: Occult Bl, Scn Procedure Result Reported Site Stool Occult Blood (1) Final 03/29/19- 1501 ML Stool Occult Blood Negative Collection Date (1) 03/29/19 * ML - Main Lab . END OF REPORT DEPARTMENT OF PATHOLOGY, [address] [place] [address] Magdaleno De La Rosa M.D. Director [facility] # [id number] 7 Because ethnic data is not always readily [...] 15-29 5 Kidney failure <15 (or dialysis) 8 [place] Severe Sepsis and Septic Shock Management Bundle Measure requires all lactic acids initially measuring >2.0 mmol/L be repeated. 9 *Ascorbic acid is present which may interfere with detection of blood. 10 SEE RESULT BELOW Name: VILMA VANEGAS : [address]: Valentino Leslie MD Acct: [id number] Unit: [id number] AGE: 78 Location: ED Re03/29/19 SEX: F Status: DEP ER SPEC: [id number] CRISTIAN: 03/29/[address] [facility] [address]: Valentino Leslie MD REQ: [id number] RECD: 03/29/19 STATUS: GHASSAN MAS[facility] DR: Bonifacio Carreno MD [facility] Demario Duff MD _ SOURCE: URINE SPDESC: ORDERED: Urine Culture Procedure Result Reported Site Urine Culture Final 03/30/19- 1442 ML No Growth (<1,000 CFU/mL) * ML - Main Lab . END OF REPORT DEPARTMENT OF PATHOLOGY, [address] [place] [address] Magdaleno De La Rosa M.D. Director [facility] # [id number] Procedures Date Code Description Status 05/02/2019 88242 Pulse Oximetry Completed 04/18/2019 66099 Pulse Oximetry Completed 04/26/2014 62356832 Mammogram Completed 07/10/2008 84888066 Mammogram Completed 04/26/2005 238025953 Bone Mineral Density Test Completed 04/26/2005 28270694 Colonoscopy Completed Medical Devices Description No Information Available Encounters Type Date Location Provider Dx Diagnosis Office Visit 05/02/2019 [facility] Office Demario Fonseca A04.72 Enterocolitis d/ t 8:00a Josie Duff Clostridium difficile, not spcf as recur J18.8 Other pneumonia, unspecified organism M25.572 Pain in left ankle and joints of left foot Office Visit 04/18/2019 11:20a Main Office Demario Fonseca A04.72 Enterocolitis d/t Josie Duff Clostridium difficile, not spcf as recur J18.8 Other pneumonia, unspecified organism R60.0 Localized edema Office Visit 03/31/2019 3:45p Main Office Lauryn Gomez, [place] R05 Cough R19.7 Diarrhea, unspecified Office Visit 02/14/2019 [facility] Yomaira Manley, S40.262A Insect bite 9:00a Office MEliseo (nonvenomous) of left shoulder, init encntr W57.xxxA Bit/stung by nonvenom insect & oth nonvenom arthropods, init Office Visit 01/31/2019 10:00a [facility] Office Demario Fonseca 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, morgagnian type, bilateral J44.1 Chronic obstructive pulmonary disease w (acute) exacerbation I67.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 05/02/2019 M25.572 Pain in left ankle and joints of left Demario Duff M.D. foot 04/18/2019 A04.72 Enterocolitis due to Clostridium Demario Duff M.D. difficile, not specified as recurrent 04/18/2019 J18.8 Other pneumonia, unspecified organism Demario Duff M.D. 04/18/2019 R60.0 Localized edema Demario Duff M.D. 04/10/2019 A04.72 Enterocolitis due to Clostridium Demario Dfuf M.D. difficile, not specified as recurrent 03/31/2019 R05 Cough Lauryn Gomez, [facility] 03/31/2019 R19.7 Diarrhea, unspecified Lauryn Gomez, [facility] 02/14/2019 S40.262A Insect bite (nonvenomous) of left Yomaira Manley M.D. shoulder, initial encounter 02/14/2019 W57.xxxA Bitten or stung by nonvenomous insect Yomaira Manley M.D. 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 bilateral 01/31/2019 J44.1 Chronic obstructive pulmonary disease Demario Duff M.D. with (acute) exacerbat 01/31/2019 I67.848 Other cerebrovascular vasospasm and Demario Duff M.D. vasoconstriction 01/31/2019 Z01.818 Encounter for other preprocedural Demario Duff M.D. examination Plan of Treatment Future Appointment(s):07/04/2019 10:10 am - Demario [facility] M.D. at [facility]06/20/2019 - Crista Hinds-CJ06.9 Acute upper respiratory infection, [id number] CoughFollow up:Followup:. (Follow up) J44.9 Chronic obstructive pulmonary disease, unspecifiedAllComments:Medication Management Patient Understands medications she's taking? Yes No Are there Barriers to Adherence? Yes No Has the patient been asked about herbal supplements and therapies, and OTC meds? Yes No Care Plan1. Patient has been queried about patient's goals/preferences and functional/lifestyle goals at relevant visits. If relevant, describe: na2. Treatment goals as explained to the patient: abovesx resolution 3. Are there barriers to meeting treatment goals? Yes No If Yes, please describe:4. Self-Management goals as described to the patient: Yes No cont prn nebulizer ? trial xopenex will try hx cough med , expect continued sx improvement f/u if not continued improvement or if sx worsen Functional Status Description No Information Available Mental Status Description No Information Available Referrals Refer to Reason for Referral Status Appt Date [facility] URGENT REFERRAL left ankle fx not healing jw Scheduled 12/2019 [address] [place] [address] new address as of 05/28/2014 [phone]
--- OUTSIDE RECORDS SUMMARY | 2019-07-03 13:24 | XMS REPORT | Continuity of Care Document ---
:1940 External Reference #:[id number] Author Name Amarjit Álvarez M.D. 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 50mcg/Act Suspension day Start in 3 weeks Plavix 1 by mouth every Unknown 75mg Tablets day Theophylline ER 1 by mouth every Unknown 100mg day Tablets ER 12HR Advair Diskus 1 puff twice a Unknown day 100-50mcg/Dose Aerosol Singulair 1 by mouth every Unknown 4mg Chewtabs day Simvastatin take 1 tablet by Unknown 10mg Tablets mouth at bedtime Immunizations Description No Information Available Vital Signs Date Vital Result Comment 07/03/2019 10:07am Weight 143.00 lb Height 66 inches 5'6" BMI (Body Mass Index) 23.1 kg/m2 BP Systolic 148 mmHg BP Diastolic 70 mmHg Heart Rate 66 /min O2 % BldC Oximetry 97 % Body Temperature 97.6 F Pain Level 0 05/11/2018 9:26am Weight 145.00 lb Height 66 inches 5'6" BMI (Body Mass Index) 23.4 kg/m2 BP Systolic 117 mmHg BP Diastolic 64 mmHg Heart Rate 67 /min O2 % BldC Oximetry 96 % Body Temperature 96.9 F Pain Level 0 Results Test Acquired Date Facility Test Result H/L Range Note TSH+Free T4 07/03/2019 [facility] TSH (Thyroid <pending> [address] Stim Horm) [place] [address] [phone] Free T4 (Free Thyroxine) <pending> Procedures Description No Information Available Medical Devices Description No Information Available Encounters Description No Information Available Assessments Description No Information Available Plan of Treatment No Information Available Functional Status Functional Condition Comment Date Status Hearing Aid in Both ears Active Glasses Active Mental Status Description No Information Available Referrals Description No Information Available
--- NOTE | 2019-07-03 14:02 | UC ---
Throat Pain/Nasal James HPI - HPI Summary HPI Summary: 79 yo female has had a vitamin pill caught in her throat since about 8:[address] Carrasco scoped pill looked like it would go down itself Pt states her pain now is worse hoarse no drooling able to swallow liquids Dr. Carrasco office called here and requested XRs and to send her back to the office - History of Current Complaint Chief Complaint: UCGeneralIllness Stated Complaint: FB THROAT Time Seen by Provider: 07/03/19 13:26 Hx Obtained From: Patient Hx Last Menstrual Period: 48 yrs Onset/Duration: Sudden Onset, Lasting Hours Severity: Moderate Pain Intensity: 4 - 10 with swallowing Pain Scale Used: 0-10 Numeric Cough: None - Epiglottits Risk Factors Epiglottis Risk Factors: Negative - Allergies/Home Medications Allergies/Adverse Reactions: Allergies Allergy/AdvReac Type Severity Reaction Status Date / Time mercury (elemental) Allergy Severe Swelling Verified 07/03/19 13:03 Of Face,Lips,& Throat salicylates AdvReac Joint Pain Verified 07/03/19 13:03 Sulfa (Sulfonamide AdvReac Joint Pain Verified 07/03/19 13:03 Antibiotics) ENVIRONMENTAL/SEASONAL Allergy CONGESTION, Uncoded 07/03/19 13:03 ASTHMA Home Medications: Home Medications Montelukast Sodium TAB* [Singulair 10 MG TAB*] 10 mg PO DAILY 08/05/13 [History Confirmed 07/03/19] Clopidogrel TAB* [Plavix TAB*] 75 mg PO DAILY 01/01/15 [History Confirmed ] Clobetasol 0.05% OINT* 1 applic TOPICAL BID PRN 05/14/17 [History Confirmed 01/13] Simvastatin (NF) [Zocor (NF)] 40 mg PO DAILY 05/14/17 [History Confirmed ] Fluticasone-Salmeterol 250-50* [Advair Diskus 250-50*] 1 puff INH BID #1 diskus 05/15/17 [Rx Confirmed 07/03/19] Theophylline CAP ER* [Lavon Dur*] 300 mg PO BID 07/20/17 [History Confirmed 07/02] Anastrozole (NF) [Arimidex (NF)] 1 mg PO DAILY 09/12/18 [History Confirmed 07/02] Fluticasone NASAL SPRAY 50MCG* [Flonase NASAL SPRAY 50MCG*] 2 spray BOTH NARES DAILY 03/29/19 [History Confirmed 07/03/19] Ipratropium 0.5MG/2.5ML NEB* [Atrovent 0.5 MG NEB.JOANNE*] 0.5 mg INH QID PRN 03/29 [History Confirmed 07/03/19] PMH/Surg Hx/FS Hx/Imm Hx Previously Healthy: Yes Respiratory History: COPD Cancer History: Breast Cancer - Surgical History Surgical History: Yes Surgery Procedure, Year, and Place: Bilateral Mastectomy, 2018; Stent Rt kidney July 2013 removed, Lt Hip replacement 08/2012, 3 C-sections, Complete Hysterectomy, Adhesions-Colon, Menetrier's Disease-Partial Gastric surgery 1984 , right Breast Biopsy-Benign - Family History Known Family History: Positive: Cardiac Disease - Social History Alcohol Use: None Substance Use Type: None Smoking Status (MU): Former Smoker Length of Time of Smoking/Using Tobacco: OFF AND ON FOR ABOUT 16 YEARS Have You Smoked in the Last Year: No When Did the Patient Quit Smoking/Using Tobacco: 1982 - Immunization History Most Recent Influenza Vaccination: 2018 Most Recent Tetanus Shot: up to date Most Recent Pneumonia Vaccination: 2013 Review of Systems All Other Systems Reviewed And Are Negative: Yes Constitutional: Positive: Negative Skin: Positive: Negative Eyes: Positive: Negative ENT: Positive: Sore Throat, Other - FB sensation- points to sternal notch Respiratory: Positive: Negative Cardiovascular: Positive: Negative Gastrointestinal: Positive: Negative Genitourinary: Positive: Negative Motor: Positive: Negative Neurovascular: Positive: Negative Musculoskeletal: Positive: Negative Neurological/Mental Status: Positive: Negative Psychological: Positive: Negative Physical Exam Triage Information Reviewed: Yes Appearance: Well-Appearing, Thin, Other: - no respiratory distress/stridor Vital Signs: Initial Vital Signs Temp 98.5 F 07/03/19 12:58 Pulse 70 07/03/19 12:58 Resp 16 07/03/19 12:58 BP 177/98 07/03/19 12:58 Pulse Ox 98 07/03/19 12:58 Vital Signs Reviewed: Yes Eyes: Positive: Conjunctiva Clear ENT: Positive: Hearing grossly normal, Sinus tenderness, Uvula midline. Negative: Nasal congestion, Nasal drainage, Tonsillar swelling, Tonsillar exudate, Hoarse voice Dental: Positive: Other: - edentulous Neck: Positive: Supple, Nontender, No Lymphadenopathy Respiratory: Positive: No respiratory distress, No accessory muscle use, Rhonchi Cardiovascular: Positive: RRR Neurological: Positive: Alert Psychological Exam: Normal Skin Exam: Normal Diagnostics - Radiology No standard instances Radiology Interpretation Completed By: Radiologist Summary of Radiographic Findings: #. Hyperinflation of the hypopharynx. #. Calcification of the cricoid and thyroid cartilage of the larynx noted. Atherosclerotic calcification at the carotid bifurcations noted. #. No foreign body at the oropharynx or hypopharynx evident. #. Unremarkable prevertebral soft tissue contours and epiglottis thickness. #. Edentulous with senile morphology mandible - EKG Cardiac Rate: NL Throat Pain/Nasal Course/Dx - Differential Dx/Diagnosis Provider Diagnosis: Foreign body in hypopharynx Discharge ED - Sign-Out/Discharge Documenting (check all that apply): Patient Departure All imaging exams completed and their final reports reviewed: Yes - Discharge Plan Condition: Stable Disposition: HOME Patient Education Materials: Foreign Body in Pharynx (ED) Referrals: Demario Duff MD [Primary Care Provider] - Additional Instructions: to Dr. Carrasco office now - Billing Disposition and Condition Condition: STABLE Disposition: Home
== END 2019-07-03 14:01 | disposition home or self-care (01) ==
LOC: UCCORT 12:55
DX: T17.208A Unspecified foreign body in pharynx causing other injury, initial encounter (principal); X58.XXXA Exposure to other specified factors, initial encounter; Y92.9 Unspecified place or not applicable; Z91.09 Other allergy status, other than to drugs and biological substances; Z88.2 Allergy status to sulfonamides; Z88.6 Allergy status to analgesic agent; J44.9 Chronic obstructive pulmonary disease, unspecified; Z85.3 Personal history of malignant neoplasm of breast; Z96.642 Presence of left artificial hip joint; I65.29 Occlusion and stenosis of unspecified carotid artery
CPT/HCPCS: 70360; 99211; G0463

== ENCOUNTER 2021-03-24 12:37 | Inpatient (IN) ==
[2021-03-24 13:10] LABS: Hematocrit 37 % (35-47); Hemoglobin 12.6 g/dL (12.0-16.0); Mean Corpuscular HGB Conc 34 g/dL (31-36); Mean Corpuscular Hemoglobin 30 pg (27-31); Mean Corpuscular Volume 89 fL (80-97); Mean Platelet Volume 8.1 fL (7.4-10.4); Platelet Count 199 10^3/uL (150-450); Red Blood Count 4.18 10^6 /uL (3.70-4.87); Red Cell Distribution Width 14 % (10-15); White Blood Count 13.5 10^3/uL (3.5-10.8)
[2021-03-24 13:27] LABS: Troponin I 0.01 ng/mL (<0.03)
[2021-03-24 13:28] LABS: INR 1.29 (0.86-1.15)
[2021-03-24 13:52] LABS: Albumin 3.8 g/dL (3.2-5.2); Albumin/Globulin Ratio 1.4 (1-3); Calcium 9.3 mg/dL (8.6-10.3); Globulin 2.7 g/dL (2-4); Potassium 4.2 mmol/L (3.5-5.0); Total Bilirubin 0.8 mg/dL (0.2-1.0); Total Protein 6.5 g/dL (6.4-8.9); eGFR CKD-EPI 64.2 (>60)
[2021-03-24 14:11] LABS: RBC Morphology Normal (Normal)
[2021-03-24 14:12] LABS: ABS Lymphocytes 0.5 10^3/ul (1.0-4.8); ABS Monocytes 0.5 10^3/ul (0-0.8); ABS Neutrophils 12.5 10^3/ul (1.5-7.7); Lymphocyte % 3.5 %; Nucleated Red Blood Cells % 0.1
[2021-03-24 15:00] LABS: Venous Bicarbonate HCO3 24.3 mmol/L (24-28)
[2021-03-24 15:14] LABS: Influenza A Molecular Negative (Negative); Influenza B Molecular Negative (Negative)
[2021-03-24] MEDS ORDERED: methylPREDNISolone 125 mg 2 ML VIAL IV ONE (15:25)
[2021-03-24 15:28] LABS: Troponin I 0.03 ng/mL (<0.03)
[2021-03-24 15:36] LABS: C Reactive Protein 305.29 mg/L (<8.01)
[2021-03-24 15:45] LABS: LDH 193 U/L (140-271)
[2021-03-24] MEDS ORDERED: Ondansetron 4 mg VIAL 2 MG/ML 2 ml VIAL IV ONE (16:09)
[2021-03-24 16:13] LABS: Ferritin 253.9 ng/mL (11-307)
[2021-03-24 16:49] LABS: Troponin I 0.03 ng/mL (<0.03)
[2021-03-24 18:22] LABS: Rapid COVID-19 Molecular Undetected (Undetected)
[2021-03-24] MEDS ORDERED: NS 0.9% 1000 ml BAG 1,000 ML IV ONE (21:07)
[2021-03-24] MEDS ORDERED: Albuterol HFA INHALER 8 gm MDI INH PRN (21:12)
[2021-03-24] MEDS ORDERED: Iodixanol (CONTRAST) 320 MG/ML 100 ML SDV IV ONE (21:33)
[2021-03-25] MEDS ORDERED: guaiFENesin 100 mg/5 ml LIQ unit dose cup PO PRN (00:05)
[2021-03-25] MEDS: Enoxaparin 40 MG/0.4 ML SYR SUBCUT SCH ×2 (00:18→20:28)
[2021-03-25] MEDS: Fluticasone-Salmeterol 250-50 DISKUS INH SCH ×3 (01:23→20:04)
[2021-03-25 03:56] LABS: Osmolality Serum 280 mOsm/kg (275-295)
[2021-03-25] MEDS ORDERED: Flu vaccine *QUAD* 2021-22* 0.5 ML SYRINGE IM ONE (09:00)
[2021-03-25] MEDS: cefTRIAXone 1 gm/50 mL NS BAG 1 GM/50 ML BAG IVPB SCH (10:20)
[2021-03-25] MEDS: CMCS: Simvastatin 20 mg TAB (NF) PO SCH (10:23)
[2021-03-25] MEDS: Fluticasone NASAL SPRAY 50MCG 16 gm SPRAY BTL BOTH NARES SCH (10:36)
[2021-03-25] MEDS: CMCS: Anastrozole 1 mg TAB (NF) PO SCH (11:32)
[2021-03-25] MEDS ORDERED: Polyethylene Glycol 3350 17 GM PACKET PO PRN (14:22)
[2021-03-26 06:17] LABS: Hematocrit 30 % (35-47); Hemoglobin 10.2 g/dL (12.0-16.0); Mean Corpuscular HGB Conc 34 g/dL (31-36); Mean Corpuscular Hemoglobin 30 pg (27-31); Mean Corpuscular Volume 89 fL (80-97); Mean Platelet Volume 8.8 fL (7.4-10.4); Platelet Count 203 10^3/uL (150-450); Red Blood Count 3.44 10^6 /uL (3.70-4.87); Red Cell Distribution Width 15 % (10-15); White Blood Count 13.8 10^3/uL (3.5-10.8)
[2021-03-26] MEDS: Fluticasone-Salmeterol 250-50 DISKUS INH SCH (08:03)
[2021-03-26] MEDS: Fluticasone NASAL SPRAY 50MCG 16 gm SPRAY BTL BOTH NARES SCH (08:51)
[2021-03-26] MEDS: CMCS: Anastrozole 1 mg TAB (NF) PO SCH (08:51)
[2021-03-26] MEDS: cefTRIAXone 1 gm/50 mL NS BAG 1 GM/50 ML BAG IVPB SCH (08:51)
[2021-03-26] MEDS ORDERED: Furosemide 20 mg/2 ml IV VIAL IV ONE (09:58)
[2021-03-26] MEDS: CMCS: Simvastatin 20 mg TAB (NF) PO SCH (11:09)
[2021-03-26 12:37] VITALS: BP 121/73
== END 2021-03-26 14:50 | disposition home or self-care (01) | DRG 193 ==
LOC: ED 12:37 → SUATTDRO 20:56 → EDHOLD 20:56 → MED 22:14
PROVIDERS: ADMIT Student in an Organized Health Care Education/Training Program; ATTEND Internal Medicine

== ENCOUNTER 2022-05-13 07:57 | Observation (INO) ==
[~2022-05-13 07:57] MED LIST changes: +Buffered Lidocaine 1% SYRIN 1 ml INTRADERM ONE; -Buffered Lidocaine 1% SYRIN* 1 ML/SYRINGE INTRADERM ONE; +Lactated Ringers 1000 ml BAG 1,000 ML IV SCH
[2022-05-13] MEDS ORDERED: Chlorhexidine MOUTHWASH 0.12% 15 ML UDC ONE (08:40)
[2022-05-13] MEDS ORDERED: ceFAZolin 2 GM in NS PREMIX 2 GM/100 ML BAG IVPB ONE (08:55)
[2022-05-13] MEDS ORDERED: Ondansetron 4 mg VIAL 2 MG/ML 2 ml VIAL ONE (10:14)
[2022-05-13] MEDS ORDERED: fentaNYL 100 mcg/2 ml 50 MCG/ML VIAL ONE ×2 (10:14→13:06)
[2022-05-13] MEDS ORDERED: Dexamethasone IV 4 MG/ML VIAL 1 ml VIAL ONE (10:14)
[2022-05-13] MEDS ORDERED: Propofol 10 MG/ML 20 ML BTL ONE (10:14)
[2022-05-13] MEDS ORDERED: Lidocaine 2% PF 5 ML VIAL ONE (10:15)
[2022-05-13] MEDS ORDERED: Rocuronium 50 mg VIAL 10 mg/ml 5 ml VIAL (50 mg) ONE (10:16)
[2022-05-13] MEDS ORDERED: Acetaminophen IV 1 GM/100ML 1,000 MG/100 ML BAG IV ONE ×2 (10:16→12:57)
[2022-05-13] MEDS ORDERED: Thrombin 5,000 UNITS 1 APPLIC KIT - topical use - TOPICAL ONE (10:27)
[2022-05-13] MEDS ORDERED: ceFAZolin VIAL VIAL ONE (10:27)
[2022-05-13] MEDS ORDERED: Gelfoam Sponge SIZE 100 SPONGE ONE (10:28)
[2022-05-13] MEDS ORDERED: Ondansetron 4 mg VIAL 2 MG/ML 2 ml VIAL IV PRN (12:27)
[2022-05-13] MEDS ORDERED: Magnesium Hydroxide LIQ 30 ML UDC PO PRN (12:27)
[2022-05-13] MEDS ORDERED: Naloxone 0.4 mg VIAL 0.4 mg/ml 1 ml VIAL IV PRN (12:57)
[2022-05-13] MEDS ORDERED: Prochlorperazine 5 mg/ml 2 ml VIAL (10 mg) IV PRN (12:57)
[2022-05-13] MEDS ORDERED: Lactated Ringers 1000 ml BAG 1,000 ML IV SCH (13:00)
[2022-05-13] MEDS: fentaNYL 100 mcg/2 ml 50 MCG/ML VIAL IV PRN ×4 (13:07→13:33)
[2022-05-13] MEDS: Mometasone/Formoter 200/5 MDI INH SCH (21:10)
[2022-05-14] MEDS: HYDROcodone/ACETAMIN 5/325 mg TAB PO PRN ×2 (03:41→13:44)
[2022-05-14] MEDS: Mometasone/Formoter 200/5 MDI INH SCH ×2 (07:14→19:35)
[2022-05-14] MEDS: CMCS: Anastrozole 1 mg TAB (NF) PO SCH (08:28)
[2022-05-14] MEDS: Fluticasone NASAL SPRAY 50MCG 16 gm SPRAY BTL BOTH NARES SCH (08:30)
[2022-05-14] MEDS ORDERED: Senna TAB 8.6 mg TAB PO PRN (09:13)
[2022-05-14] MEDS ORDERED: Polyethylene Glycol 3350 17 GM PACKET PO PRN (09:14)
[2022-05-15] MEDS: HYDROcodone/ACETAMIN 5/325 mg TAB PO PRN (00:02)
[2022-05-15] MEDS: Mometasone/Formoter 200/5 MDI INH SCH (08:31)
[2022-05-15 08:46] VITALS: BP 149/71
[2022-05-15] MEDS: CMCS: Anastrozole 1 mg TAB (NF) PO SCH (09:40)
[2022-05-15] MEDS: Fluticasone NASAL SPRAY 50MCG 16 gm SPRAY BTL BOTH NARES SCH (09:40)
== END 2022-05-15 10:40 | disposition home or self-care (01) ==
LOC: OR 07:57 → SSU 07:57
PROVIDERS: ADMIT Neurological Surgery; ATTEND Neurological Surgery